=== PATIENT | male | born 1950 | race Caucasian/White ===

== ENCOUNTER 2020-12-04 14:38 | Outpatient (CLI) | payer MEDICARE, SELFPAY ==
[2020-12-04 15:32] LABS: Abs Immature Grans 0.03 10^3/uL (0.0-0.06); Absolute Basophil Count 0.04 10^3/uL (0.0-0.2); Absolute Eosinophil Count 0.64 10^3/uL (0.0-0.7); Absolute Lymphocyte Count 1.71 10^3/uL (1.2-3.4); Absolute Monocyte Count 0.56 10^3/uL (0.1-0.8); Absolute Neutrophil Count 4.78 10^3/uL (1.2-6.7); Basophils % 0.5; Eosinophils % 8.2; HCT 41.4 % (40.0-50.0); HGB 13.4 g/dL (13.5-17.5); Immature Grans % 0.4; MCH 28.2 pg (27.0-33.0); MCHC 32.4 % (32.0-36.0); MCV 87.2 fL (80-95); MPV 9.1 fL (8.0-11.0); Monocytes % 7.2; Neutrophils % 61.7; Nucleated RBC 0 %; Platelet Count 202 10^3/uL (130-400); RBC 4.75 10^6/uL (4.36-5.78); RDW-SD 41.5 fL; WBC 7.76 10^3/uL (4.4-10.8)
[2020-12-04 16:36] LABS: ALT 56 U/L (16-63); AST 35 U/L (15-37); Alkaline Phosphatase 99 U/L (46-116); Anion Gap 13.5 mmol/L (3-11); BUN 28 mg/dL (7-18); Bilirubin, Total 0.4 mg/dL (0.2-1.0); CO2 27.5 mmol/L (21.0-32.0); CREATININE 1.5 mg/dL (0.70-1.30); Calcium 9.5 mg/dL (8.5-10.1); Chloride 102 mmol/L (98-107); Estimated GFR 46.27 (mL/min/1.73m2); Glucose 86 mg/dL (74-106); Potassium 4.3 mmol/L (3.5-5.1); Sodium 143 mmol/L (136-145)
[2020-12-06 12:57] LABS: PSA, Ultrasensitive 201 ng/mL (<= 6.5)
[2020-12-07 12:39] LABS: Testosterone, Total 361 ng/dL (240-950)
== END 2020-12-04 14:39 | disposition home or self-care (01) ==
PROVIDERS: PCP Nurse Practitioner; Visit Provider Internal Medicine
DX: C61 Malignant neoplasm of prostate (principal)
CPT/HCPCS: 36415; 80053; 84153; 84403; 85025

== ENCOUNTER 2021-09-03 15:57 | Outpatient (REF) | payer MEDICARE, SELFPAY ==
[2021-09-03 16:44] LABS: Bilirubin Negative (Negative); Blood Moderate (Negative); Clarity Cloudy (Clear); Glucose 500 mg/dL (Negative); Ketones Negative (Negative); Leukocyte Esterase Large (Negative); Nitrite Positive (Negative); Specific Gravity >= 1.030 (1.005-1.025); Urobilinogen 0.2 EU/dL (Up TO 0.2)
[2021-09-03 16:50] LABS: C & S Indicated? Yes; WBC >50 HPF (0-5)
== END 2021-09-03 15:58 | disposition home or self-care (01) ==
LOC: LBN 15:57
PROVIDERS: PCP Nurse Practitioner; Visit Provider Nurse Practitioner Adult Health
DX: C61 Malignant neoplasm of prostate (principal); C77.5 Secondary and unspecified malignant neoplasm of intrapelvic lymph nodes
CPT/HCPCS: 87077; 81003; 81015; 87086; 87186

== ENCOUNTER 2022-08-12 13:17 | Outpatient (CLI) | payer MEDICARE, SELFPAY ==
[2022-08-12 12:22] LABS: Abs Immature Grans 0.04 10^3/uL (0.0-0.06); Absolute Basophil Count 0.04 10^3/uL (0.0-0.2); Absolute Eosinophil Count 0.55 10^3/uL (0.0-0.7); Absolute Lymphocyte Count 1.85 10^3/uL (1.2-3.4); Absolute Monocyte Count 0.51 10^3/uL (0.1-0.8); Absolute Neutrophil Count 4.96 10^3/uL (1.2-6.7); Basophils % 0.5; Eosinophils % 6.9; HCT 38.7 % (40.0-50.0); HGB 12.1 g/dL (13.5-17.5); Immature Grans % 0.5; Lymphocytes % 23.3; MCH 27.1 pg (27.0-33.0); MCHC 31.3 % (32.0-36.0); MCV 87 fL (80-95); MPV 8.8 fL (8.0-11.0); Monocytes % 6.4; Neutrophils % 62.4; Platelet Count 188 10^3/uL (130-400); RBC 4.46 10^6/uL (4.36-5.78); RDW 12.8 % (11.8-14.1); RDW-SD 40.5 fL; WBC 7.95 10^3/uL (4.4-10.8)
[2022-08-12 12:46] LABS: ALT 18 U/L (16-63); AST 14 U/L (15-37); Albumin 3.4 g/dL (3.4-5.0); Alkaline Phosphatase 140 U/L (46-116); Anion Gap 7.3 mmol/L (3-11); BUN 23 mg/dL (7-18); Bilirubin, Total 0.3 mg/dL (0.2-1.0); CO2 29.7 mmol/L (21.0-32.0); CREATININE 1.6 mg/dL (0.70-1.30); Calcium 9.3 mg/dL (8.5-10.1); Chloride 99 mmol/L (98-107); Glucose 221 mg/dL (74-106); Sodium 136 mmol/L (136-145); Total Protein 8.3 g/dL (6.4-8.2)
--- OUTSIDE RECORDS SUMMARY | 2022-08-12 13:28 | XMS_ITS ---
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 Problem Polyneuropathy G63 Active 98832 6008 associated with underlying disease Problem Hydronephrosis, N13.30 Active 4306 4006 unspecified hydronephrosis type Problem Long-term use of Z79.899 Active 710 007269 high-risk medication Problem Spermatocele N43.40 Active 3769353 1 Problem Mixed E78.2 Active [id number] hyperlipidemia Problem Type 2 diabetes E11.9 Active 3134 60791 mellitus without complications Problem Benign prostatic N40.1 Active 300 [id number] hyperplasia with lower urinary tract symptoms, symptom details unspecified Problem Elevated PSA R97.20 Active 7759825 05 Problem Erectile N52.9 Active 701690711 dysfunction, unspecified erectile dysfunction type ALLERGIES Substance Reaction Event Type Date Status Dogs - chocolate labs rash on hands Non Drug Allergy Jul, A ctive cats eyes water and red Non Drug Allergy Jul, Activ e walnuts Unknown Non Drug Allergy Jul, Active ENCOUNTERS Encounter Location Date Diagnosis [facility] [address] [place] [address] Aug, OFFICE [address] [place] [address] 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 [address] [place] [address] Aug, [place] [address] 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 [address] [facility] Jul, [place] [address] 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 [address] [facility] Jul, Hydronephro sis, unspecified [place], [place] hydronephrosis t ype N13.30 [address] 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 [address] [facility] Jul, Hydronephro sis, unspecified [place] hydronephrosis t ype N13.30 [address]3247 ; Benign prostat ic hyperplasia with lower urinary tract sy mptoms, symptom details unspecified N40.1 ; Spermato shelby N43.40 ; Erectile dysfu nction, unspecified erec tile dysfunction type N52.9 and Elevated PSA R97 .20 [facility] [address] [facility] Jul, Left renal stone N20.0 [place] [address] [facility] [address] [facility] Jul, Typ e 2 diabetes mellitus [place], [place] without complica tions E11.9 [address] [facility] 8 [facility] May, Benign ess ential OFFICE [address] hypertension I10 ; Mixed [place] hyperlipidemia E 78.2 ; CAD [address]384 (coronary artery disease) I25.10 ; Type 2 diabetes mellitus without complications E1 1.9 ; Polyneuropathy a ssociated with underlying disease G63 ; BPH (benign pr ostatic hyperplasia) N40 .0 ; Long-term use of high-risk medication Z79.8 99 and computer terminal operator (current) u se of insulin Z79.4 [facility] 8 [facility] May, OFFICE [address] [place] [address] [facility] 8 [facility] May, Benign ess entiwi OFFICE [address] hypertension I10 [place] [address] [facility] May, Mixed hyperlipidemia E78.2 [place] [address] and Type 2 di abetes mellitus without complications E1 1.9 [facility] 8 [facility] May, OFFICE [address] [place] [address] [facility] Mar, [place] [address] [employer]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 [address] [facility] Mar, [place] [address] [facility] [address] [facility] Feb, [place] [address] [facility] 8 [facility] Feb, Myocardial ischemia I25.9 [address] [place] [address] [facility] 8 [facility] Feb, CAD (coron mya artery OFFICE [address] disease) I25.10 [place] [address] [facility]ARD[facility] [address] [facility] Feb, [place] [address] [facility]ARD[facility]OLOG[facility] [address] [facility] Feb, [place] [address] [facility] 8 [facility] Feb, BPH (benig n prostatic OFFICE [address] hyperplasia) N40 .0 [place] [address] [facility] 8 [facility] Feb, Medicare a nnual wellness OFFICE [address] visit, subsequen t Z00.00 ; [place] Chest pain on ex ertion [address] R07.9 ; Benign e ssential hypertension I10 ; Mixed hyperlipidemia E 78.2 ; CAD (coronary artery disease) I25.10 ; Type 2 diabetes mellitus without complications E1 1.9 ; Polyneuropathy a ssociated with underlying disease G63 ; BPH (benign pr ostatic hyperplasia) N40 .0 ; Long-term use of high-risk medication Z79.8 99 ; prison (current) u se of insulin Z79.4 ; Encounter for screening fo r malignant neoplasm of test is Z12.71 ; Colon cancer scr eening Z12.11 ; Screeni ng for prostate cancer Z12.5 ; Need for hepatit is C screening test Z 11.59 ; Risk for falls Z 91.81 ; Screening for bl adder cancer Z12.6 ; S creening for depression Z 13.89 ; Encounter for dr sandhu screening Z02.83 and Alcohol screenin g Z13.89 [address]OD[address] Oct, Comprehensive di abetic foot [place] examination, typ e 2 DM, [address] encounter for E1 1.9 ; Achilles tendini tis of left lower extremity M76.62 and Achilles tendini tis, right leg M76.61 [facility] [address] [place] [address] Aug, Intermitte nt claudication [address]ICE [address] I73.9 ; Benign e ssential [place] hypertension I10 ; Mixed [address] hyperlipidemia E 78.2 ; Type 2 diabetes melli tus without complications E1 1.9 ; Polyneuropathy a ssociated with underlying disease G63 ; CAD (coronary artery disease) I25.10 ; BPH (benign prostati c hyperplasia) N40 .0 ; Long-term use of high-risk medication Z79.8 99 and prison (current) u se of insulin Z79.4 [facility] MELLISA [facility] Jul, 2019 Achilles tendini tis, right [place] leg M76.61 and A chilles [address] tendinitis of le ft lower extremity M76.62 [facility] [address] [facility] Jul, [place] [address] [facility] 8 [facility] Jul, Benign ess ential OFFICE [address] hypertension I10 ; Mixed [place] hyperlipidemia E 78.2 and [address] Diabetes type 2, controlled E11.9 [facility] 8 [facility] May, Achilles tendini tis, right [place] leg M76.61 ; Ach illes [address] tendinitis of le ft lower extremity M76.62 ; Comprehensive di abetic foot examination, typ e 2 DM, encounter for E1 1.9 and Nocturnal leg cr amps G47.62 [address]OD-[address] Feb, Comprehensive di abetic foot [place] examination, typ e 2 DM, [address] encounter for E1 1.9 [facility] 8 [facility] Feb, Medicare a nnual wellness OFFICE [address] visit, subsequen t Z00.00 ; [place] Benign essential [address] hypertension I10 ; Mixed hyperlipidemia E 78.2 ; Diabetes type 2, controlled E11.9 ; CAD (cor onary artery disease) I25.10 ; BPH (benign pros tatic hyperplasia) N40 .0 ; Long-term use of high-risk medication Z79.8 99 ; computer terminal operator (current) u se of insulin Z79.4 ; Encounter for drug screeni ng Z02.83 ; Colon cancer scr eening Z12.11 ; Alcohol screening Z13.89 ; Risk fo r falls Z91.81 and Encou nter for screening for ma lignant neoplasm of test is Z12.71 [facility] [address] [facility] Nov, Magy betes type 2, controlled [place], [place] E11.9 [address] [facility] [address] [facility] [address] Aug, [place] [address] [facility]ARD[facility]OLOG[facility] [address] [facility] Aug, [place] [address] [facility] Aug, [place] [address] [facility] Aug, [place] [address] [facility]ARD[facility] [address] [facility] Aug, [place] [address] [facility] 8 [facility] Aug, Atypical c hest pain R07.89 [address]ICE [address] ; Pain, joint, m ultiple [place] sites M25.50 ; B enign [address] essential hypert ension I10 ; Mixed hyperlip idemia E78.2 ; Diabetes type 2, controlled E11.9 ; CAD (coronary artery disease) I25.10 ; BPH (be nign prostatic hyperp lasia) N40.0 ; Long-ter m use of high-risk medica tion Z79.899 and prison (current) use of insulin Z79.4 [facility] [address] [place] [address] Jul, OFFICE [address] [place] [address] [facility] [address] [place] [address] Mar, Magy lui type 2, controlled [place] E11.9 [address] [facility] 8 [facility] Jan, Medicare a nnual wellness OFFICE [address] visit, subsequen t Z00.00 ; [place] Benign essential [address] hypertension I10 ; Mixed hyperlipidemia E 78.2 ; Diabetes type 2, controlled E11.9 ; CAD (cor onary artery disease) I25.10 ; BPH (benign pros tatic hyperplasia) N40 .0 ; Long-term use of high-risk medication Z79.8 99 ; Encounter for dr sandhu screening Z02.83 ; Screening for bl adder cancer Z12.6 ; E ncounter for screening fo r malignant neoplasm of test is Z12.71 ; Alcohol screenin g Z13.89 ; Colon cancer scr eening Z12.11 ; Screeni ng for prostate cancer Z12.5 ; SCREENING FOR AA A (ABDOMINAL AORTI C ANEURYSM) Z13.6 ; Risk for falls Z91.81 and computer 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 operator (current) use of insulin Z79.4 [facility] 8 [facility] Oct, Benign ess ential OFFICE [address] hypertension I10 ; Mixed [place] hyperlipidemia E 78.2 ; [address] Diabetes type 2, controlled E11.9 ; CAD (cor onary artery disease) I25.10 ; BPH (benign pros tatic hyperplasia) N40 .0 and Long-term use of high-risk medication Z79.8 99 [facility] [address] [facility] Aug, Magy lui type 2, controlled [place], [place] E11.9 [address] [facility] 8 [facility] Aug, OFFICE [address] [place] [address] [facility] 8 [facility] Aug, OFFICE [address] [place] [address] [facility] 8 [facility] Aug, OFFICE [address] [place] [address] Jul, Benign esse [place], [place] hypertension I10 ; Mixed [address] hyperlipidemia E 78.2 ; Diabetes type 2, controlled E11.9 ; CAD (cor onary artery disease) I25.10 ; BPH (benign pros tatic hyperplasia) N40 .0 and Long-term use of high-risk medication Z79.8 99 [facility] 8 [facility] Jul, Benign ess ential OFFICE [address] hypertension I10 ; Mixed [place] hyperlipidemia E 78.2 ; 17910 Diabetes type 2, controlled E11.9 ; CAD (cor onary artery disease) I25.10 ; BPH (benign pros tatic hyperplasia) N40 .0 and Long-term use of high-risk medication Z79.[address] Mar, Benign esse [place], [place] hypertension I10 ; Mixed [address] hyperlipidemia E 78.2 ; Diabetes type 2, controlled E11.9 ; CAD (cor onary artery disease) I25.10 ; BPH (benign pros tatic hyperplasia) N40 .0 ; Long-term use of high-risk medication Z79.8 99 and Right flank pain R10.9 [facility] 8 [facility] Mar, Right flan k pain R10.9 ; OFFICE [address] Benign essential [place] hypertension I10 ; Mixed [address] hyperlipidemia E 78.2 ; Diabetes type 2, controlled E11.9 ; CAD (cor onary artery disease) I25.10 ; BPH (benign pros tatic hyperplasia) N40 .0 and Long-term use of high-risk medication Z79.8 99 [facility] 8 [facility] Feb, OFFICE [address] [place] [address] [facility] 8 [facility] Jan, Benign ess ential OFFICE [address] hypertension [place]10 [place] [address] [facility] 8 [facility] December, OFFICE [address] [place] [address] [facility] 8 [facility] December, Diabetes type 2, controlled [place] E11.[address] December, [place] [address] [facility] 8 [facility] December, Benign ess ential OFFICE [address] hypertension I10 ; Type II [place] or unspecified t ype 15606 diabetes mellitu s without mention of compl ication, not stated as un controlled E11.9 ; Mixed hyperlipidemia E 78.2 ; CAD (coronary artery disease) I25.10 ; BPH (be nign prostatic hyperp lasia) N40.0 ; Long-ter m use of high-risk medica tion Z79.899 ; Alcoho l screening Z13.89 ; Screeni ng for bladder cancer Z 12.6 ; Encounter for sc reening for malignant neopla sm of testis Z12.71 ; Colon cancer screening Z12.11 ; SCREENING FOR AA A (ABDOMINAL AORTI C ANEURYSM) Z13.6 ; Risk for falls Z91.81 ; Pneumoc occal vaccination admi nistered at current visit Z2 [address] sandhu screening Z02.83 [facility] [address] [place] [address] Oct, [place] [address] [place] [address] [facility] 8 [facility] Oct, OFFICE [address] [place], [place] [address] [place] [address] [facility] 8 [facility] Oct, Pre-op aspen luation Z01.818 ; OFFICE [address] Rotator cuff tea r [place] arthropathy of r ight 297[address] shoulder M12.811 ; Benign essential hypert ension I10 ; Mixed hyperlip idemia E78.2 ; Type II or unspecified type diabetes mellitus without mention of complication, no t stated as uncontrolled E11 .9 ; CAD (coronary artery disease) I25.10 ; BPH (be nign prostatic hyperp lasia) N40.0 and Long-t erm use of high-risk medica tion Z79.899 [facility] [address] [place] [address] Aug, Acute pain of right OFFICE [address] shoulder M25.511 [place] [address] Aug, Benign esse ntial [place] hypertension I10 ; [place] [address] or unspecified t ype diabetes mellitu s without mention of compl ication, not stated as un controlled E11.9 ; Mixed hyperlipidemia E 78.2 ; CAD (coronary artery disease) I25.10 ; BPH (be nign prostatic hyperp lasia) N40.0 and Long-t erm use of high-risk medica tion Z79.899 [facility] 8 [facility] Aug, Acute pain of right [address]ICE [address] shoulder M25.511 ; [place], [place] essential hypert ension I10 [address] ; Type II or uns pecified type diabetes me llitus without mention of complication, no t stated as uncontrolled E11 .9 ; Mixed hyperlipidemia E 78.2 ; CAD (coronary artery disease) I25.10 ; BPH (be nign prostatic hyperp lasia) N40.0 and Long-t erm use of high-risk medica tion Z79.[address] Jul, [place] [address] [facility] 8 [facility] Jul, [address]ICE [address] [place] [address] May, [facility] [place] hypertension I10 ; Right 35366 shoulder pain M2 5.511 ; Type II or unspe cified type diabetes mellitu s without mention of compl ication, not stated as un controlled E11.9 ; Mixed hyperlipidemia E 78.2 ; CAD (coronary artery disease) I25.10 ; BPH (be nign prostatic hyperp lasia) N40.0 and Long-t erm use of high-risk medica tion Z79.899 [facility] [address] [place] [address] May, Right shou lder pain M25.511 OFFICE [address] ; [facility] [place] hypertension I10 ; [place] [address] or unspecified t ype diabetes mellitu s without mention of compl ication, not stated as un controlled E11.9 ; Mixed hyperlipidemia E 78.2 ; CAD (coronary artery disease) I25.10 ; BPH (be nign prostatic hyperp lasia) N40.0 and Long-t erm use of high-risk medica tion Z79.899 [facility] 8 [facility] Mar, [place] [address] [address] Feb, [place] [address] [facility] 8 [facility] Jan, OFFICE [address] [place] [address] Nov, Long-term u se of high-risk [place] medication Z79.8 99 ; Type 28080 II or unspecifie d type diabetes mellitu s without mention of compl ication, not stated as un controlled E11.9 ; Mixed hyperlipidemia E 78.2 ; CAD (coronary artery disease) I25.10 and BPH ( benign prostatic hyperp lasia) N40.0 [facility] 8 [facility] Nov, Left shoul negin pain M25.512 [address] ; Type II or uns pecified [place] type diabetes me llitus 59[address] without mention of complication, no t stated as uncontrolled E11 .9 ; Mixed hyperlipidemia E 78.2 ; CAD (coronary artery disease) I25.10 ; BPH (be nign prostatic hyperp lasia) N40.0 and Long-t erm use of high-risk medica tion Z79.[address] Aug, [place] [address] [facility] 8 [facility] Aug, [address]ICE [address] [place] [address] Aug, Type II or unspecified type [place] [address] mention of compl ication, not stated as un controlled E11.9 ; Right sh oulder pain M25.511 ; Mixed hyperlipidemia E 78.2 ; CAD (coronary artery disease) I25.10 ; BPH (be nign prostatic hyperp lasia) N40.0 and Long-t erm use of high-risk medica tion Z79.899 [facility] [address] [place] [address] Aug, Right shou lder pain M25.511 [address] ; Type II or uns pecified [place] type diabetes me llitus [address]79[address] without mention of complication, no t stated as uncontrolled E11 .9 ; Mixed hyperlipidemia E 78.2 ; CAD (coronary artery disease) I25.10 ; BPH (be nign prostatic hyperp lasia) N40.0 and Long-t erm use of high-risk medica tion Z79.899 [facility] 8 [facility] Jul, OFFICE [address] [place] [address] [facility] [address] [place] [address] May, DM II [Diabetes mellitus [place] type II] 250.00 52797 [facility] 8 [facility] May, OFFICE [address] [place] [address] [address] Feb, Diabetes type 2, controlled [place] 250.00 and Leg c ramps [address] Feb, LONG-TERM U SE MEDS NEC [place] V58.69 ; Right s houlder [address] pain 719.41 ; DM II [Diabetes mellit type II] 250.00 ; Hyperli pidemia 272.4 ; CAD 414. 00 ; BPH (benign prostati c hypertrophy) 600 .00 ; SCREEN MAL NEOP- BLADDER V76.3 ; SCREEN M ALIG NEOP-TESTIS V76. 45 ; Screening for hu man immunodeficiency virus without presence of risk factors V73.89 ; SCREEN MALIG NEOP-COLON V76.51 ; SCR-for hepatiti s C screening V73.89 and SCRN MALIG NEOP-PROST ATE V76.44 [facility] [address] [place] [address] Feb, Right shou lder pain 719.41 [address]ICE [address] ; DM II [Diabete s mellitus [place] type II] 250.00 ; Visual 33034 disturbance 368. 9 ; Hyperlipidemia 2 72.4 ; CAD 414.00 ; BPH (be nign prostatic hypert rophy) 600.00 ; LONG-TE RM USE MEDS NEC V58.69 ; Scr eening for human immunodefi ciency virus without pr esence of risk factors V73 .89 ; SCR-for hepatiti s C screening V73.89 ; SCRN MALIG NEOP-PROST ATE V76.44 ; ND VAC STRPTCS PNEUMNI B V03.82 ; SCREEN MAL NEOP-BLADDER V76 .3 ; SCREEN MALIG NEOP-COLON V76.51 and SCREEN MALIG SG P-TESTIS V76.45 [facility] [address] [place] [address] Jan, [address]ICE [address] [place] [address] [facility] [address] [place] [address] Oct, Environmen nandini allergies [address]ICE [address] V15.09 [place] [address] Aug, Need for he patitis C [place] screening test V 73.89 ; [place] [address] II [Diabetes lindsay litus type II] 250.00 ; Hyp erlipidemia 272.4 ; CAD 414. 00 ; Allergy 995.3 ; Hearing loss 389.9 and L PANFILO-TERM USE MEDS NEC V58 .69 [facility] [address] [place] [address] Aug, DM II [Magy betes mellitus [address]ICE [address] type II] 250.00 ; VACCIN [place] FOR INFLUENZA V0 4.81 ; [address]42[address] Hyperlipidemia 2 72.4 ; CAD 414.00 ; Allergy 995.3 ; Hearing loss 389 .9 ; LONG-TERM USE ME DS NEC V58.69 and Need for hepatitis C scre ening test V73.89 [facility] [address] [place] [address] Feb, DM II [Diab etes mellitus [place] type II] 250.00 ; [address] Hyperlipidemia 2 72.4 ; CAD 414.00 and LONG- TERM USE MEDS NEC V58.69 [facility] [address] [place] [address] Feb, DM II [Magy betes mellitus [address]ICE [address] type II] 250.00 ; [place] Hyperlipidemia 2 72.4 ; CAD 51295 414.00 and LONG- TERM USE MEDS NEC V58.69 [facility] [address] [place] [address] Jan, [address]ICE [address] [place] [address] [facility] [address] [place] [address] Oct, [address]ICE [address] [place] [address] zzLPO-PRIM and PSYCH [address] [facility] Oct, [place] [address] [place] [address] [place], [place] [address] [place] [address] Oct, [place] [address] Oct, [place] [address] Aug, SCRN MALIG NEOP-PROSTATE [place] V76.44 ; PHYSICA L- ADULT 72066 V70.0 ; Atypical chest pain 786.59 ; DM II [ Diabetes mellitus type II ] 250.00 ; Hyperlipidemia 2 72.4 ; CAD 414.00 ; LONG-TE RM USE MEDS NEC V58.69 ; SCR EEN MAL NEOP-BLADDER V76 .3 ; SCREEN MALIG NEOP-TESTI S V76.45 and SCREEN MALIG NEOP-COLON V76.51 [facility] [address] [place] [address] Aug, PHYSICAL- ADULT V70.0 ; OFFICE [address] Atypical chest p ain 786.59 [place] ; DM II [Diabete s mellitus 56179 type II] 250.00 ; Hyperlipidemia 2 72.4 ; CAD 414.00 ; LONG-TE RM USE MEDS NEC V58.69 ; SCR EEN MAL NEOP-BLADDER V76 .3 ; SCREEN MALIG NEOP-TESTI S V76.45 ; SCREEN MALIG SG P-COLON V76.51 and SCRN MALIG NEOP-PROSTATE V7 6.44 [facility] [address] [facility] Jul, [place] [address] ADMINISTRATION [facility] Jul, [place] [address] [facility] [address] [place] [address] Jul, [place] [address] [facility] [address] [place] [address] Jul, Atypical c hest pain 786.59 [address] ; Right shoulder pain [place], [place] 719.41 and Right hip pain [address]9870 719.45 -[facility] [address] May, LONG-TERM U SE MEDS NEC [place] V58.69 ; Hyperli pidemia 62058 272.4 ; CAD 414. 00 and DM II [Diabetes lindsay litus type II] 250.00 [facility] [address] [place] [address] May, CAD 414.00 ; Hyperlipidemia [address]ICE [address] 272.4 ; DM II [India nogueira [place] mellitus type II ] 250.00 [address]4869 and LONG-TERM US E MEDS NEC V58.[address] Mar, [place] [address] [facility] [address] [place] [address] Feb, [place] [address] December, Hyperlipide mahsa 272.4 ; CAD [place], [place] 414.00 ; DM II [ Diabetes 12085 mellitus type II ] 250.00 and LONG-TERM US E MEDS NEC V58.69 [facility] [address] [place] [address] December, CAD 414.00 ; DM II [address]ICE [address] [Diabetes mellit us type II] [place], [place] 250.00 ; Hyperli pidemia 03217 272.4 and LONG-T ERM USE MEDS NEC V58.69 [facility] [address] [place] [address] December, [address]ICE [address] [place] [address] UNKNOWN Aug, [facility] [address] [place] [address] Jul, [address]ICE [address] [place] [address] [facility] [address] [place] [address] Jul, CAD 414.00 ; DM II [address]ICE [address] [Diabetes mellit us type II] [place], [place] 250.00 ; Hyperli pidemia 56351 272.4 and LONG-T ERM USE MEDS NEC V58.69 [facility] [address] [facility] Jul, DM II [Diab etes mellitus [place] type II] 250.00 ; CAD 68789 414.00 ; Hyperli pidemia 272.4 and LONG-T ERM USE MEDS NEC V58.69 [facility] 8 [facility] Feb, Injury of ankle 959.7 [address] [place] [address] [place] [address] [address] [facility] Feb, [place] [address] ORTHOPEDIC OFFICE [address] [facility] Feb, Arthralgia o f shoulder [place], [place] region, left 719 .41 [address] [facility] [address] [facility] Jan, [place] [address] [facility] Jan, DEG ENERATIVE JOINT DISEASE [place], [place] 715.96 [address] [facility] [address] [facility] Jan, Shoulder pain, left 719.41 [place] [address] xxRADIOLOGY [address] [facility] Jan, [place] [address] [facility] [address] [facility] Jan, Evonne ulder pain, left 719.41 [place] [address] CASE MANAGEMENT [address] [facility] Jan, [place] [address] [facility] [address] [place] [address] Jan, Trapezius muscle strain OFFICE [address] 840[address] [place] [address] December, Hyperlipide mahsa 272.4 ; [place], [place] Trapezius muscle strain 49191 840.8 ; DM II [D iabetes mellitus type II ] 250.00 ; CAD 414.00 and L PANFILO-TERM USE MEDS NEC V58 .69 [facility] [address] [place] [address] December, Trapezius muscle strain OFFICE [address] 840.8 ; DM II [D iabetes [place] mellitus type II ] 250.00 ; 51092 Hyperlipidemia 2 72.4 ; CAD 414.00 ; LONG-TE RM USE MEDS NEC V58.69 and N on compliance with medical treatment V15.81 [facility] 8 [facility] Aug, OFFICE [address] [place] [address] [facility] [address] [place] [address] Aug, OFFICE [address] [place] [address] [facility] 8 [facility] Jul, OFFICE [address] [place] [address] [facility] 8 [facility] Jul, OFFICE [address] [place] [address] Jul, LONG-TERM U SE MEDS NEC [place] V58.69 ; DM II [ Diabetes 45370 mellitus type II ] 250.00 ; CAD 414.00 ; Hyp erlipidemia 272.4 and Latera l epicondylitis 72 6.32 [facility] 8 [facility] Jul, DM II [Magy betes mellitus OFFICE [address] type II] 250.00 ; CAD [place], [place] 414.00 ; Hyperli pidemia 92151 272.4 ; Lateral epicondylitis 72 6.32 and LONG-TERM USE ME DS NEC V58.69 [facility] 8 [facility] Nov, DM II [Magy betes mellitus OFFICE [address] type II] 250.00 ; [place] Hyperlipidemia 2 72.4 ; 24346 LONG-TERM USE ME DS NEC V58.69 and CAD 4 14.00 -[address] Nov, DM II [Diab etes mellitus [place] type II] 250.00 ; 77781 Hyperlipidemia 2 72.4 ; LONG-TERM USE ME DS NEC V58.69 and CAD 4 14.00 [facility] [address] [place] [address] Nov, OFFICE [address] [place] [address] [facility] [address] [place] [address] Oct, [place] [address] [facility] [address] [place] [address] Aug, [place] [address] [facility] [address] [place] [address] Aug, [place] [address] Jul, [place] [address] Jul, LONG-TERM U SE MEDS NEC [place] V58.69 ; DM II [ Diabetes 05865 mellitus type II ] 250.00 ; CAD 414.00 ; Hyp erlipidemia 272.4 and Tinea pedis 110.4 [facility] [address] [place] [address] Jul, DM II [Magy betes mellitus OFFICE [address] type II] 250.00 ; CAD [place], [place] 414.00 ; Hyperli pidemia 08295 272.4 ; Tinea pe dis 110.4 and LONG-TERM US E MEDS NEC V58.69 [facility] [address] [place] [address] Jul, [place] [address] [facility] 8 [facility] Jul, DM II [Magy betes mellitus OFFICE [address] type II] 250.00 ; CAD [place], [place] 414.00 ; Hyperli pidemia 14246 272.4 and LONG-T ERM USE MEDS NEC V58.69 [facility] 8 [facility] Jul, OFFICE [address] [place] [address] [facility] [address] [place] [address] May, [place] [address] [facility] [address] [place] [address] May, [place] [address] [facility]IL[facility]ATION [address] [facility] May, [place] [address] xxCARDIOLOGY [address] [facility] May, [place] [address] [facility] 8 [facility] May, CAD 414.00 and DM II OFFICE [address] [Diabetes mellit type II] [place], [place] 250.00 [address] [facility] 8 [facility] May, OFFICE [address] [place] [address] [facility] 8 [facility] May, OFFICE [address] [place] [address] [facility] 8 [facility] May, [address]ICE [address] [place] [address] [facility] 8 [facility] Mar, DM II [Magy betes mellitus OFFICE [address] type II] 250.00 and HEME + [place], [place] STOOL 792.[id number] [place] [address] [place] [address] Mar, [address]ICE [address] [place] [address] Jan, DM II [Diab etes mellitus [place] type II] 250.00 ; First 66810 degree atriovent ricular block 426.11 ; M YALGIA AND MYOSITIS NOS 729 .1 ; BPH LOC W/O UR OBS/L UTS 600.20 ; SCREEN MALIG N EOP-TESTIS V76.45 ; SCREEN MALIG NEOP-COLON V76.5 1 ; SCRN MALIG NEOP-PROST ATE V76.44 ; HEME + STOOL 7 92.1 ; SCREEN MAL NEOP- BLADDER V76.3 and EKG IN TERP, pre op V72.81 [facility] [address] [place] [address] Jan, DM II [Magy betes mellitus OFFICE [address] type II] 250.00 ; [place], [place] degree atriovent ricular 27213 block 426.11 ; M YALGIA AND MYOSITIS NOS 729 .1 ; BPH LOC W/O UR OBS/L UTS 600.20 ; SCREEN MALIG N EOP-TESTIS V76.45 ; SCREEN MALIG NEOP-COLON V76.5 1 ; SCRN MALIG NEOP-PROST ATE V76.44 ; HEME + STOOL 7 92.1 ; SCREEN MAL NEOP- BLADDER V76.3 and EKG IN TERP, pre op V72.81 [facility] [address] [facility] Nov, [address] [facility] Nov, DM II [Diab etes mellitus [place] type II] 250.00 [address] [facility] 8 [facility] Nov, DM II [Magy betes mellitus OFFICE [address] type II] 250.00 [place] [address] [facility] [address] [facility] Nov, [place] [address] [facility] 8 [facility] Oct, OFFICE [address] [place] [address] [facility] [address] [facility] 19 Jul, 2009 [place] [address] L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 [address] [facility] 18 Jul, 2009 [place] [id number] [place] [address] [address] [facility] 14 Jul, 2009 [place], [place] [id number] [place] [address] [facility]IC[facility]ANS 8 [facility] May, OFFICE [address] [place], [place] [id number] [place] [address] [facility] 8 [facility] May, OFFICE [address] [place], [place] [id number] [place] [address] [facility] 8 [facility] May, OFFICE [address] [place] [id number] [place] [address] Mar, DIABETES-TY PE II 250.00 [place], [place] [id number] [place] [address] [facility] 8 [facility] Mar, DIABETES-T YPE II 250.00 ; OFFICE [address] First degree [place] atrioventricular block 37754 426.11 ; MYALGIA AND MYOSITIS NOS 729 .1 and EKG INTERP, pre op V 72.81 [facility] 8 [facility] Mar, OFFICE [address] [place] [address] [facility] 8 [facility] Mar, OFFICE [address] [place], [place] [id number] [place] [address] [facility]ANS 8 [facility] Feb, OFFICE [address] [place] [address] [facility] 8 [facility] Jan, Hyperglyce mahsa 790.29 and OFFICE [address] DMII WO CMP UNCN TRLD 250.02 [place] [address] [facility] 8 [facility] Jan, OFFICE [address] [place] [address] [facility] 8 [facility] Jan, OFFICE [address] [place] [address] xxRADIOLOGY [address] [facility] Jan, [place] [address] [facility] 8 [facility] Jan, OFFICE [address] [place] [address] [facility] [address] [place] [address] December, [address] [facility] 8 [facility] December, OFFICE [address] [place], [place] [id number] [place] [address] PHYSICIAN OFFICE [address] [place] [address] December, DM II [[place] [address] type II] 250. 00 xxRADIOLOGY [address] [facility] December, [address] [facility]YS[facility] OFFICE [address] [place] [place] [address] December, Hyper glycemia 790.[address] December, Hyperglycem ia 790.[address] [facility] [address] [place] [address] December, OFFICE [address] [place], [place] [id number] [place] [address] [facility] 8 [facility] December, Hyperglyce mahsa 790.29 ; DMII OFFICE [address] WO CMP UNCNTRLD 250.02 and [place] COUNSELING NOS V 65.40 [address] [facility] [address] [place] [address] December, [address] December, Shortness o f breath 786.05 [place] ; CATARACT NEC 3 66.8 ; BPH 48788 LOC W/O UR OBS/L UTS 600.20 ; HEME + STOOL 7 92.1 and MYALGIA AND MYOS ITIS NOS 729.1 [facility] [address] [place] [address] December, CATARACT N EC 366.8 ; OFFICE [address] PHYSICAL- ADULT V70.0 ; BPH [place] LOC W/O UR OBS/L UTS 600.20 49878 ; SCREEN MALIG N EOP-COLON V76.51 ; HEME + STOOL 792.1 ; SCRN MAL SG B REAST NOS V76.10 ; Shortne ss of breath 786.05 ; SCREEN MALIG NEOP-TESTI S V76.45 ; MYALGIA AND MYOS ITIS NOS 729.1 ; SCRN MAL IG NEOP-PROSTATE V7 6.44 ; EKG INTERP, pre op V 72.81 ; First degree atrioventricular block 426.11 ; ABNORM ELECTROCARDIOGRA M 794.31 and DMII WO CMP UNCNTRLD 250.02 L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 [address] [facility] Nov, Abdominal p ain,NOS 789.00 [place] and Balanitis 60 7.1 [id number] xxRADIOLOGY [address] [facility] Mar, [place] [address] [facility] [address] [facility] Mar, DYS PHAGIA 787.2 [place] [address] IMMUNIZATIONS Vaccine Route Administration Date Status Pneumococcal ADULT NONSTATE PCV13 IM Intramuscular March 06, 2020 Administered [id number] Pneumococcal ADULT NONSTATE PCV13 IM Intramuscular March 06, 2015 Administered [id number] -Influenza FLUZONE NONSTATE 3+yrs IM Intramuscular Sep 06, 2014 Administered preser free triamcinalone (kenalog) per 40 mg Unknown May 15, 2016 Administered Influenza HISTORY Unknown Jun 26, 2020 Administered Pneumococcal ADULT NONSTATE PPSV23 IM Intramuscular January 13, 2017 Administered [id number] SOCIAL HISTORY Qualifiers Date Never Smoker REASON FOR REFERRAL FUNCTIONAL STATUS PLAN OF CARE Activity Details Future Test CT Abd/Pelvis w/ (21818) 202 09470 Future Test US Scrotum [id number] Future Test Cardio:Mara Cutleran CP [id number] Future Test Cardio:Echo,TTE,transTHORACI C (CPT-[id number]) [id number] Future Test PREV: DIABETIC FOOT EXAM 19 Future Test CTA Aorta-Iliofemoral runoff (60932) [id number] Future Test Cardio:Mara Cutleran CP [id number] Future Test Cardio:Echo,TTE,transTHORACI C (CPT-[id number]) [id number] Future Test CT Abd/Pelvis w/o (16108) 20 416049 Future Test US Abdomen Limited (36608) 2 [id number] Future Test MR Joint Upper Ext R w/o (39 221) [id number] Future Test X Shoulder R [id number] Future Test Cardio:Shorty Cutleriscan CP [id number] Future Test X Shoulder R [id number] Future Test X Hip R 2V [id number] VITAL SIGNS Height 62 in 2020-07-18 Height 62 in 2020-06-26 Height 62 in 2020-03-06 Height 62 in 2019-10-19 Height 62 in 2019-09-13 Height 62 in 2019-07-13 Height 62 in 2019-05-25 Height 62 in 2019-03-23 Height 62 in 2019-03-15 Height 62 in 2018-09-14 Height 62 in 2018-02-23 Height 62 in 2017-11-24 Height 62 in 2017-07-22 Height 62 in 2017-04-14 Height 62 in 2017-01-16 Height 62 in 2017-01-13 Height 62 in 2016-10-03 Height 62 in 2016-09-15 Height 62 in 2016-05-15 Height 62 in 2015-12-04 Height 62 in 2015-09-06 Height 62 in 2015-03-27 Height 62 in 2015-03-06 Height 62 in 2014-10-16 Height 62 in 2014-09-06 Height 62 in 2014-03-30 Height 62 in 2013-09-08 Height N/A in 2013-08-22 Height 62 in 2013-06-21 Height N/A in 2013-01-18 Height N/A in 2012-08-06 Height N/A in 2012-03-25 Height N/A in 2012-03-01 Height N/A in 2012-02-02 Height N/A in 2012-01-27 Height N/A in 2011-07-04 Height 62 in 2010-12-13 Height 62 in 2010-07-02 Height 62 in 2010-04-22 Height 62 in 2010-01-30 Height 62 in 2009-12-21 Height 62 in 2009-04-25 Height 62 in 2009-01-16 Weight 142 lbs 2020-07-18 Weight 149.8 lbs 2020-06-26 Weight 144 lbs 2020-03-06 Weight 148 lb 8 oz lbs 2019-10-19 Weight 149.9 lbs 2019-09-13 Weight 153 lbs 2019-07-13 Weight 147.6 lbs 2019-05-25 Weight 148.2 lbs 2019-03-23 Weight 147.2 lbs 2019-03-15 Weight 152 lbs 2018-09-14 Weight 148.4 lbs 2018-02-23 Weight 149.2 lbs 2017-11-24 Weight 152.6 lbs 2017-07-22 Weight 153.6 lbs 2017-04-14 Weight 156 lbs 2017-01-16 Weight 156 lbs 2017-01-13 Weight 157.2 lbs 2016-10-03 Weight 156.4 lbs 2016-09-15 Weight 155.0 lbs 2016-05-15 Weight 157.4 lbs 2015-12-04 Weight 159.8 lbs 2015-09-06 Weight 151.6 lbs 2015-03-27 Weight 153.8 lbs 2015-03-06 Weight 158.2 lbs 2014-10-16 Weight 154.2 lbs 2014-09-06 Weight 154.2 lbs 2014-03-30 Weight 156.4 lbs 2013-09-08 Weight 154 lbs 2013-08-22 Weight 153.2 lbs 2013-06-21 Weight 153.8 lbs 2013-01-18 Weight 155.6 lbs 2012-08-06 Weight 150.5 lbs 2012-03-25 Weight 152.6 lbs 2012-03-01 Weight 155.6 lbs 2012-02-02 Weight 154.6 lbs 2012-01-27 Weight 154.8 lbs 2011-07-04 Weight 155.25 lbs 2010-12-13 Weight 150.5 lbs 2010-08-15 Weight 151 lbs 2010-07-02 Weight 153.6 lbs 2010-06-07 Weight 155.2 lbs 2010-04-22 Weight 158 lbs 2010-01-30 Weight 154.6 lbs 2009-12-21 Weight 151.8 lbs 2009-04-25 Weight 153.8 lbs 2009-02-22 Weight 155 lbs 2009-01-25 Weight 150 lbs 2009-01-16 Weight 152 lbs 2008-12-11 Weight N/A lbs 2006-04-01 BMI 25.97 kg/m2 2020-07-18 BMI 27.40 kg/m2 2020-06-26 BMI 26.34 kg/m2 2020-03-06 BMI 27.16 kg/m2 2019-10-19 BMI 27.41 kg/m2 2019-09-13 BMI 27.98 kg/m2 2019-07-13 BMI 26.99 kg/m2 2019-05-25 BMI 27.10 kg/m2 2019-03-23 BMI 26.92 kg/m2 2019-03-15 BMI 27.80 kg/m2 2018-09-14 BMI 27.14 kg/m2 2018-02-23 BMI 27.29 kg/m2 2017-11-24 BMI 27.91 kg/m2 2017-07-22 BMI 28.09 kg/m2 2017-04-14 BMI 28.53 kg/m2 2017-01-16 BMI 28.53 kg/m2 2017-01-13 BMI 28.75 kg/m2 2016-10-03 BMI 28.60 kg/m2 2016-09-15 BMI 28.35 kg/m2 2016-05-15 BMI 28.79 kg/m2 2015-12-04 BMI 29.22 kg/m2 2015-09-06 BMI 27.72 kg/m2 2015-03-27 BMI 28.13 kg/m2 2015-03-06 BMI 28.93 kg/m2 2014-10-16 BMI 28.20 kg/m2 2014-09-06 BMI 28.20 kg/m2 2014-03-30 BMI 28.60 kg/m2 2013-09-08 BMI 28.16 kg/m2 2013-08-22 BMI 28.02 kg/m2 2013-06-21 BMI 28.13 kg/m2 2013-01-18 BMI 28.46 kg/m2 2012-08-06 BMI 27.52 kg/m2 2012-03-25 BMI 27.91 kg/m2 2012-03-01 BMI 28.46 kg/m2 2012-02-02 BMI 28.27 kg/m2 2012-01-27 BMI 28.31 kg/m2 2011-07-04 BMI 28.39 kg/m2 2010-12-13 BMI 27.62 kg/m2 2010-07-02 BMI 28.38 kg/m2 2010-04-22 BMI 28.90 kg/m2 2010-01-30 BMI 28.27 kg/m2 2009-12-21 BMI 27.76 kg/m2 2009-04-25 BMI 27.43 kg/m2 2009-01-16 Temperature 97.0 degrees Fahrenheit 2020-07-18 Temperature 97.1 degrees Fahrenheit 2020-06-26 Temperature 98.6 degrees Fahrenheit 2020-03-06 Temperature 97.5 degrees Fahrenheit 2019-10-19 Temperature 98.2 degrees Fahrenheit 2019-09-13 Temperature 98.6 degrees Fahrenheit 2019-07-13 Temperature 97.7 degrees Fahrenheit 2019-05-25 Temperature 98.6 degrees Fahrenheit 2019-03-23 Temperature 97.4 degrees Fahrenheit 2019-03-15 Temperature 97.7 degrees Fahrenheit 2018-09-14 Temperature 97.6 degrees Fahrenheit 2018-02-23 Temperature 97.9 degrees Fahrenheit 2017-11-24 Temperature 96.7 degrees Fahrenheit 2017-07-22 Temperature 96.1 degrees Fahrenheit 2017-04-14 Temperature 98.1 degrees Fahrenheit 2017-01-16 Temperature 97.9 degrees Fahrenheit 2017-01-13 Temperature 96.2 degrees Fahrenheit 2016-10-03 Temperature 96.0 degrees Fahrenheit 2016-09-15 Temperature 97.7 degrees Fahrenheit 2016-05-15 Temperature 97.5 degrees Fahrenheit 2015-12-04 Temperature 96.9 degrees Fahrenheit 2015-09-06 Temperature 97.9 degrees Fahrenheit 2015-03-27 Temperature 96.4 degrees Fahrenheit 2015-03-06 Temperature 97.0 degrees Fahrenheit 2014-10-16 Temperature 97.0 degrees Fahrenheit 2014-09-06 Temperature 98.0 degrees Fahrenheit 2014-03-30 Temperature 97.3 degrees Fahrenheit 2013-09-08 Temperature 97.6 degrees Fahrenheit 2013-08-22 Temperature TYMPANIC:97.7 degrees Fahrenheit 2013-05 Temperature 97.9 degrees Fahrenheit 2013-01-18 Temperature TYMPANIC:97.5 degrees Fahrenheit 2012-07 Temperature TYMPANIC:98.7 degrees Fahrenheit 2012-02 Temperature TYMPANIC:97.8 degrees Fahrenheit 2012-01 Temperature TYMPANIC:97.4 degrees Fahrenheit 2011-12 Temperature TYMPANIC:98 degrees Fahrenheit 4 Temperature TYMPANIC:98.2 degrees Fahrenheit 2010-11 Temperature 97.2 degrees Fahrenheit 2010-08-15 Temperature 98.6 degrees Fahrenheit 2010-07-02 Temperature 97.6 degrees Fahrenheit 2010-06-07 Temperature 97.5 degrees Fahrenheit 2010-04-22 Temperature 96.9 degrees Fahrenheit 2010-01-30 Temperature 97.3 degrees Fahrenheit 2009-04-25 Temperature 98.3 degrees Fahrenheit 2009-02-22 Temperature 97.6 degrees Fahrenheit 2009-01-18 Temperature 96.8 degrees Fahrenheit 2009-01-16 Temperature 98.1 degrees Fahrenheit 2008-12-11 Temperature N/A degrees Fahrenheit 2006-04-01 Heart Rate 74 /min 2020-07-18 Heart Rate 67 /min 2020-06-26 Heart Rate 60 /min 2020-03-06 Heart Rate 57 /min 2019-10-19 Heart Rate 70 /min 2019-09-13 Heart Rate 71 /min 2019-07-13 Heart Rate 51 /min 2019-05-25 Heart Rate 63 /min 2019-03-23 Heart Rate 73 /min 2019-03-15 Heart Rate 58 /min 2018-09-14 Heart Rate 78 /min 2018-02-23 Heart Rate 77 /min 2017-11-24 Heart Rate 70 /min 2017-07-22 Heart Rate 68 /min 2017-04-14 Heart Rate 77 /min 2017-01-16 Heart Rate 63 /min 2017-01-13 Heart Rate 75 /min 2016-10-03 Heart Rate 65 /min 2016-09-15 Heart Rate 64 /min 2016-05-15 Heart Rate 58 /min 2015-12-04 Heart Rate 60 /min 2015-09-06 Heart Rate 48 /min 2015-03-27 Heart Rate 66 /min 2015-03-06 Heart Rate 58 /min 2014-10-16 Heart Rate 70 /min 2014-09-06 Heart Rate 56 /min 2014-03-30 Heart Rate 72 /min 2013-09-08 Heart Rate 70 /min 2013-08-22 Heart Rate 60 /min 2013-06-21 Heart Rate 66 /min 2013-01-18 Heart Rate 70 /min 2012-08-06 Heart Rate 72 /min 2012-03-25 Heart Rate 54 /min 2012-03-01 Heart Rate 62 /min 2012-02-02 Heart Rate 62 /min 2012-01-27 Heart Rate 78 /min 2011-07-04 Heart Rate 62 /min 2010-12-13 Heart Rate 61 /min 2010-08-15 Heart Rate 65 /min 2010-07-02 Heart Rate 57 /min 2010-06-07 Heart Rate 68 /min 2010-04-22 Heart Rate 74 /min 2010-01-30 Heart Rate 78 /min 2009-12-21 Heart Rate 72 /min 2009-04-25 Heart Rate 98 /min 2009-02-22 Heart Rate 76 /min 2009-01-25 Heart Rate 99 /min 2009-01-18 Heart Rate 88 /min 2009-01-16 Heart Rate 85 /min 2008-12-11 Heart Rate N/A /min 2006-04-01 Respiratory Rate 18 /min 2020-07-18 Respiratory Rate 18 /min 2020-06-26 Respiratory Rate 18 /min 2020-03-06 Respiratory Rate 18 /min 2019-10-19 Respiratory Rate 18 /min 2019-09-13 Respiratory Rate 18 /min 2019-07-13 Respiratory Rate 18 /min 2019-05-25 Respiratory Rate 18 /min 2019-03-23 Respiratory Rate 18 /min 2019-03-15 Respiratory Rate 16 /min 2018-09-14 Respiratory Rate 16 /min 2018-02-23 Respiratory Rate 16 /min 2017-11-24 Respiratory Rate 16 /min 2017-07-22 Respiratory Rate 16 /min 2017-04-14 Respiratory Rate 16 /min 2017-01-16 Respiratory Rate 16 /min 2017-01-13 Respiratory Rate 18 /min 2016-10-03 Respiratory Rate 18 /min 2016-09-15 Respiratory Rate 16 /min 2016-05-15 Respiratory Rate 16 /min 2015-12-04 Respiratory Rate 16 /min 2015-09-06 Respiratory Rate 18 /min 2015-03-27 Respiratory Rate 18 /min 2015-03-06 Respiratory Rate 18 /min 2014-10-16 Respiratory Rate 18 /min 2014-09-06 Respiratory Rate 18 /min 2014-03-30 Respiratory Rate 18 /min 2013-09-08 Respiratory Rate 18 /min 2013-08-22 Respiratory Rate 16 /min 2013-06-21 Respiratory Rate 16 /min 2013-01-18 Respiratory Rate 18 /min 2012-08-06 Respiratory Rate 15 /min 2012-03-25 Respiratory Rate 16 /min 2012-03-01 Respiratory Rate 20 /min 2012-02-02 Respiratory Rate 20 /min 2012-01-27 Respiratory Rate 18 /min 2011-07-04 Respiratory Rate 16 /min 2010-12-13 Respiratory Rate 18 /min 2010-08-15 Respiratory Rate 18 /min 2010-07-02 Respiratory Rate 18 /min 2010-06-07 Respiratory Rate 18 /min 2010-04-22 Respiratory Rate 18 /min 2010-01-30 Respiratory Rate 18 /min 2009-12-21 Respiratory Rate 18 /min 2009-02-22 Respiratory Rate 16 /min 2009-01-25 Respiratory Rate 16 /min 2009-01-16 Respiratory Rate 16 /min 2008-12-11 Oximetry 97 % 2020-07-18 Oximetry 97 % 2020-06-26 Oximetry 98 % 2020-03-06 Oximetry 97 % 2019-10-19 Oximetry 96 % 2019-09-13 Oximetry 98 % 2019-07-13 Oximetry 98 % 2019-05-25 Oximetry 97 % 2019-03-23 Oximetry 98 % 2019-03-15 Oximetry 97 % 2018-09-14 Oximetry 98 % 2018-02-23 Oximetry 98 % 2017-11-24 Oximetry 98 % 2017-07-22 Oximetry 98 % 2017-04-14 Oximetry 97 % 2017-01-16 Oximetry 97 % 2017-01-13 Oximetry 95 % 2016-10-03 Oximetry 97 % 2016-09-15 Oximetry 98 % 2016-05-15 Oximetry 98 % 2015-12-04 Oximetry 98 % 2015-09-06 Oximetry 98 % 2015-03-27 Oximetry 98 % 2015-03-06 Oximetry 97 % 2014-10-16 Oximetry 98 % 2014-09-06 Oximetry 98 % 2014-03-30 Oximetry 97 % 2013-09-08 Oximetry 97 % 2013-08-22 Oximetry 97 % 2013-06-21 Oximetry 98 % 2013-01-18 Oximetry 96 % 2012-08-06 Oximetry 98 % 2012-03-25 Oximetry 97 % 2012-02-02 Oximetry 98 % 2012-01-27 Oximetry 98 % 2011-07-04 Oximetry 96 % 2010-12-13 Oximetry 98 % 2010-08-15 Oximetry 99 % % 2010-07-02 Oximetry 98 % 2010-06-07 Oximetry 97% % 2010-04-22 Oximetry 97 % 2010-01-30 Oximetry 97 % 2009-12-21 Oximetry 96 % 2009-04-25 Oximetry 96 % 2009-02-22 Oximetry 96 % 2009-01-18 Oximetry 98 % % 2009-01-16 Oximetry 98 % 2008-12-11 Blood pressure systolic 149 mm Hg 2020-07-18 Blood pressure diastolic 76 mm Hg 2020-07-18 MEDICATIONS Medication Instructions Dosage Frequency Start End Duration Statu s Date Date Lantus SoloStar Subcutaneous as 30 units 90 days Active 100 UNIT/ML directed Clopidogrel Orally Once a day 1 tablet 24h A ctive Bisulfate 75 MG -ONE TOUCH ULTRA as directed Aug, Act caleb II METER 2018 LANCET THIN Aug, Active 2017 Metoprolol Orally Two times 1 tab(s) 12h 90 days Act caleb Tartrate 25 MG a day OneTouch Ultra 2 test strips 3 as directed Jul, Active times daily as 2019 needed NovoLOG FlexPen subcutaneously 4 per sliding Oct, Active 100 units/mL times a day. Max scale 2017 of 75 units daily Finasteride 5 mg orally once a day 1 tab(s) 24h 18 Jul, 90 d ay(s) Active 2019 Tamsulosin HCl orally once a day 1 cap(s) 24h Active 0.4 mg Vicodin 300 mg-5 orally every 6 1 tab(s) 6h 18 Jul, 7 days Active mg hours 2020 Aspirin 81 MG orally once a day 1 tab(s) 24h Active Insulin Pen as directed May, Active Needle 31G X 8 2020 MM Atorvastatin orally once a day 1 tab(s) Active Calcium 80 mg (at bedtime) Amiodarone HCl Orally Once a day 1 tablet 24h Active 200 MG Nitroglycerin sublingually 1 tab(s) 30 day(s) Ac tive 0.4 mg every 5 minutes x 3 then call 911 if pain still present ONETOUCH LANCETS Aug, 90 days Active 2018 metFORMIN HCl ER Orally Once a day 1 tablet 24h Nov, Active 750 mg 2019 PROCEDURES Procedure Date Ordered Result Body Site N.CL,INJ.FEE.MEDICARE-PNEUMCOC(53520) March 06, 2015 Dep screen neg (61542) March 06, 2020 KENALOG 40 MG- BILL PER 10 MG March 06, 2015 ELECTROCARDIOGRAM REPORT January 30, 2010 Tob non-user (57533) Sep 14, 2018 GLUCOSE BLOOD TEST(02999) February 22, 2009 ELECTROCARDIOGRAM REPORT January 16, 2009 PROS CANCR SCR; PROS ANTIG TST TOT February 23, 2018 SBIRT screen w intervention (33177) January 13, 2017 UA-DIPSTICK ([facility] code 32794) Apr 14, 2017 ASPIRIN/CLOPIDOGREL RXD Sep 06, 2015 PREHTN/HTN BP DOC INDCD F/U DOC Jul 22, 2017 DIGITAL RECTAL EXAMINATION ANNUAL January 16, 2009 PROS CANCR SCR; PROS ANTIG TST TOT January 16, 2009 PAIN ASSESS POS TOOL F/U PLAN DOC Sep 06, 2015 KENALOG 40 MG- BILL PER 10 MG Sep 06, 2015 TOBACCO USE, SMOKING, ASSESS Jul 22, 2017 TOBACCO USE, SMOKING, ASSESS Apr 14, 2017 KENALOG 40 MG- BILL PER 10 MG May 15, 2016 OCCULT BLOOD DIAGNOSTIC ([id number]) March 15, 2019 BMI normal (21954) January 13, 2017 ELECTROCARDIOGRAM, TRACING January 30, 2010 BMI elevated, counseled (05604) November 24, 2017 Med Rec done (15929) February 23, 2018 PROS CANCR SCR; PROS ANTIG TST TOT March 06, 2020 Injection,major joint (shoulder, hip, March 06, 2015 knee) TOBACCO USE, SMOKING, ASSESS January 13, 2017 HG A1C LEVEL 7.0-9.0% Sep 06, 2015 TOBACCO NON-USER December 04, 2015 Tob non-user ([id number]) Apr 14, 2017 Tob non-user ([id number]) Jul 22, 2017 SBIRT SCREEN negative March 15, 2019 DM OP SLF-MGMT TRN SRVC IND-30 MIN January 18, 2009 EKG INTER (01996) Apr 25, 2009 BLOOD PRESSURE, MEASURED Sep 06, 2015 VISUAL ACUITY SCREEN Sep 08, 2013 SBIRT SCREEN negative February 23, 2018 SBIRT SCREEN negative January 13, 2017 DIABETIC FOOT EXAM PERFORM&DOC March 23, 2019 SBIRT SCREEN negative March 06, 2020 Dep screen neg (41795) Sep 14, 2018 BP SCR PRFRM RCMDD DEFIND SCR INTVL November 24, 2017 EKG INTER (05727) January 16, 2009 VISUAL ACUITY SCREEN January 16, 2009 BP SCR PRFRM RCMDD DEFIND SCR INTVL Apr 14, 2017 BP SCR PRFRM RCMDD DEFIND SCR INTVL Jul 22, 2017 BP SCR PRFRM RCMDD DEFIND SCR INTVL December 04, 2015 LDL-C <100 MG/DL Sep 06, 2015 FOOT EXAMINATION PERFORMED Oct 19, 2019 Depo-medrol 80 March 01, 2012 OCCULT BLOOD, FECES, SINGLE January 16, 2009 Injection,major joint (shoulder, hip, May 15, 2016 knee) BMI normal (20588) Jul 22, 2017 Med Rec done (01783) November 24, 2017 Med Rec done (47065) Sep 14, 2018 -Influenza FLUZONE NONSTATE 3+yrs preser Sep 06, 2014 free HG A1C LEVEL 7.0-9.0% December 04, 2015 BMI normal (92517) Apr 14, 2017 PROS CANCR SCR; PROS ANTIG TST TOT March 15, 2019 ANNUAL ALCOHOL MISUSE SCREEN 15 MIN January 13, 2017 DIGITAL RECTAL EXAMINATION ANNUAL February 23, 2018 Dep scrn pos, plan documented (71963) March 06, 2020 OCCULT BLOOD DIAGNOSTIC ([id number]) January 30, 2010 PURE TONE AUDIOMETRY, AIR January 16, 2009 HTN DX,Diastolic BP<90 (27920) Sep 14, 2018 Tob non-user (97388) November 24, 2017 Dep screen neg (28811) Jul 22, 2017 Dep screen neg (17709) Apr 14, 2017 NEG SCR D PT NOT ELIG F/U/PLN DOC December 04, 2015 ELECTROCARDIOGRAM, TRACING Apr 25, 2009 Injection,major joint (shoulder, hip, Sep 06, 2015 knee) OPD PRO C W/CON 1ST HR January 18, 2009 LIST CUR MEDS W/DOSAGES DOC BY PROV December 04, 2015 IMMUNIZATION INJ FEE, 1ST Sep 06, 2014 ELECTROCARDIOGRAM REPORT Apr 25, 2009 HTN DX,Systolic BP =>140 (19590) Sep 14, 2018 Dep screen neg (81866) November 24, 2017 Fall Risk Assessment Completed 2017-01-13 N/A Med Rec done (64752) Jul 22, 2017 SBIRT screening 2017-01-13 N/A Med Rec done (31795) Apr 14, 2017 Fall Risk Assessment Completed 2018-02-23 N/A DIGITAL RECTAL EXAMINATION ANNUAL March 06, 2015 SBIRT screening 2018-02-23 N/A PURE TONE AUDIOMETRY, AIR January 30, 2010 HTN DX,Diastolic BP<90 (96938) March 15, 2019 zzPREV: eye exam 2018-06-23 Mild DM retinopathy CARDIOVASCULAR STRESS TEST Apr 01, 2006 BP SCR PRFRM RCMDD DEFIND SCR INTVL Sep 06, 2015 Fall Risk Assessment Completed 2019-03-15 N/A DIGITAL RECTAL EXAMINATION ANNUAL January 13, 2017 Medicare subsq.Annual Wellness Visit February 23, 2018 ([id number]) PROS CANCR SCR; PROS ANTIG TST TOT January 13, 2017 ANNUAL ALCOHOL MISUSE SCREEN 15 MIN March 06, 2020 Medicare subsq.Annual Wellness Visit March 15, 2019 ([id number]) OCCULT BLOOD DIAGNOSTIC ([email or web address]) January 13, 2017 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, 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 January 18, 2009 ANNUAL DEPRESSION SCREENING 15 MIN March 15, 2019 N.CL,INJ.FEE.MEDICARE-PNEUMCOC(19804) January 13, 2017 ANNUAL DEPRESSION SCREENING 15 MIN February 23, 2018 PROS CANCR SCR; PROS ANTIG TST TOT Sep 08, 2013 STERILE 4X4 (25841) March 06, 2015 SBIRT screen w intervention (30880) March 06, 2020 PROS CANCR SCR; PROS ANTIG TST TOT January 30, 2010 EKG INTER (06696) January 30, 2010 DIGITAL RECTAL EXAMINATION ANNUAL March 06, 2020 PROS CANCR SCR; PROS ANTIG TST TOT March 06, 2015 ANNUAL DEPRESSION SCREENING 15 MIN March 06, 2020 DIGITAL RECTAL EXAMINATION ANNUAL January 30, 2010 VISUAL ACUITY SCREEN January 30, 2010 ANNUAL WELLNESS VST; PPS SUBSQT VST January 13, 2017 SBIRT screen w intervention (40772) February 23, 2018 DIGITAL RECTAL EXAMINATION ANNUAL Sep 08, 2013 OCCULT BLOOD DIAGNOSTIC ([email or web address]) March 06, 2015 SBIRT screen w intervention (74051) March 15, 2019 PNEUMOCOCCAL VACC, 13 SHARAN IM March 06, 2015 OCCULT BLOOD DIAGNOSTIC ([email or web address]) Sep 08, 2013 BMI elevated, counseled (48055) February 23, 2018 DIGITAL RECTAL EXAMINATION ANNUAL March 15, 2019 Dep screen neg (87727) February 23, 2018 Med Rec done (40847) January 13, 2017 GLUCOSE BLOOD TEST(27088) Apr 25, 2009 GLUCOSE BLOOD TEST(94460) January 18, 2009 Tob non-user (61866) March 15, 2019 NEG SCR D PT NOT ELIG F/U/PLN DOC Sep 06, 2015 ASPIRIN/OTH ANTITHROMBOTIC TX USED Sep 06, 2015 Dep screen neg (45766) January 13, 2017 BMI elevated, counseled (83254) March 15, 2019 OCCULT BLOOD DIAGNOSTIC ([id number]) March 06, 2020 PNEUMOCOCCAL VACC, 13 SHARAN IM March 06, 2020 Tob non-user (03989) February 23, 2018 Med Rec done (26046) March 15, 2019 SBIRT screening 2019-03-15 neg Fall Risk Assessment Completed 2020-03-06 N/A AIRCAST WALKER (10877) March 25, 2012 Pneumococcal ADULT NONSTATE PPSV23 [id number] January 13, 2017 ANNUAL ALCOHOL MISUSE SCREEN 15 MIN February 23, 2018 Tob non-user (02983) January 13, 2017 PURE TONE AUDIOMETRY, AIR Sep 08, 2013 TOBACCO NON-USER Sep 06, 2015 LIPID PROFILE RESULTS DOC & REVIEW Sep 06, 2015 HTN DX,Systolic BP <140 (53198) March 15, 2019 BP SCR PRFRM RCMDD DEFIND SCR INTVL February 23, 2018 ANNUAL ALCOHOL MISUSE SCREEN 15 MIN March 15, 2019 ANNUAL DEPRESSION SCREENING 15 MIN January 13, 2017 Medicare subsq.Annual Wellness Visit March 06, 2020 (06871) Injection,major joint (shoulder, hip, March 01, 2012 knee) BP SCR PRFRM RCMDD DEFIND SCR INTVL January 13, 2017 ELECTROCARDIOGRAM, TRACING January 16, 2009 OCCULT BLOOD DIAGNOSTIC ([email or web address]) February 23, 2018 RESULTS Name Result Date Reference Range CT Abd/Pelvis w/o ([id number]) 2020-07-16 See Below For Report CBC WITH AUTO DIFF 2020-07-16 WBC 7.9 4.0-12.0 RBC 5.4 4.5-6.0 HGB 14.1 13.5-18.0 HCT 44.9 42.0-52.0 MCV 84 78-100 MCH 26.2 27.0-32.0 MCHC 31.4 32.0-36.0 RDW 14.5 11.0-14.0 PLT 196 140-440 MPV 9.2 7.4-11.0 ANC# 4.4 1.4-7.9 IG# 0.02 0.00-0.10 LY# 1.90 1.50-4.00 MO# 0.68 0.20-0.80 EO# 0.96 0.00-0.70 BA# 0.03 0.00-0.20 NE% 54.7 IG% 0.3 0.0-1.0 LY% 23.9 MO% 8.6 EO% 12.1 BA% 0.4 COMPMET 2020-07-16 GLUC 149 74-106 BUN 17 7-25 CREATS 1.03 0.70-1.30 EGFR >60 >=60 NA 135 136-144 K+ 4.1 3.5-5.1 CL 103 98-110 CO2 29 22-32 CA 9.4 8.6-10.3 TP 7.4 6.0-8.3 ALB 4.2 3.4-5.0 TBIL 0.8 0.3-1.2 DBIL 0.1 0.0-0.2 ALKP 100 34-104 AST 14 13-39 ALT 15 7-52 UA-DIP PLUS MICRO W/REFLEX 2020-07-16 COL Yellow YELLOW CLARITY Clear CLEAR SG 1.010 1.001-1.035 GLU. Negative NEGATIVE JATIN Negative NEGATIVE KET Negative NEGATIVE BLD Moderate NEGATIVE PH 5.5 5.0-8.0 PROT Negative NEGATIVE UROBILINOGEN 0.2 0.2-1.0 NIT Negative NEGATIVE DEZ Negative NEGATIVE MUC NEGATIVE BACT NEGATIVE JASON NEG EPI NEG RBCS NEG WBCS NEGATIVE CAST NEG AMORPH NEG BASEMET 2020-06-26 GLUC 152 74-106 BUN 14 7-25 CREATS 0.93 0.70-1.30 EGFR >60 >=60 NA 138 136-144 K+ 5.0 3.5-5.1 CL 103 98-110 CO2 29 22-32 CA 9.6 8.6-10.3 HEMOGLOBIN A1C 2020-06-26 HGBA1C 6.8 4.0-6.0 CMG 148 LIVER FUNCTION TESTS 2020-06-26 TP 7.2 6.0-8.3 ALB 4.2 3.4-5.0 TBIL 0.7 0.3-1.2 DBIL 0.2 0.0-0.2 ALKP 107 34-104 AST 20 13-39 ALT 24 7-52 LIPID W/ CALCULATED LDL 2020-06-26 CHOL 123 0-200 TRIG 83 0-200 HDL 33 23-92 LDL CALC 73 5-99 CHOL/HDL 3.7 0.0-4.5 BASEMET 2020-03-16 GLUC 161 74-106 BUN 17 7-25 CREATS 0.93 0.70-1.30 EGFR >60 >=60 NA 138 136-144 K+ 4.5 3.5-5.1 CL 104 98-110 CO2 29 22-32 CA 9.4 8.6-10.3 Cardio:Bess Cutler 2020-03-13 CPT-[id number] Occult Blood Random-DIAGNOSTIC (NON SCREENING) Occult Blood Random NEGATIVE OCCULT BLOOD BASEMET 2020-03-06 GLUC 112 74-106 BUN 21 7-25 CREATS 0.83 0.70-1.30 EGFR >60 >=60 NA 139 136-144 K+ 4.4 3.5-5.1 CL 104 98-110 CO2 30 22-32 CA 9.3 8.6-10.3 CBC WITH AUTO DIFF 2020-03-06 WBC 7.4 4.0-12.0 RBC 4.8 4.5-6.0 HGB 13.5 13.5-18.0 HCT 41.4 42.0-52.0 MCV 86 78-100 MCH 28.2 27.0-32.0 MCHC 32.6 32.0-36.0 RDW 12.8 11.0-14.0 PLT 182 140-440 MPV 10.5 7.4-11.0 ANC# 4.0 1.4-7.9 IG# 0.01 0.00-0.10 LY# 1.76 1.50-4.00 MO# 0.53 0.20-0.80 EO# 1.04 0.00-0.70 BA# 0.05 0.00-0.20 NE% 54.4 IG% 0.1 0.0-1.0 LY% 23.7 MO% 7.1 EO% 14.0 BA% 0.7 HEMOGLOBIN A1C 2020-03-06 HGBA1C 6.4 4.0-6.0 CMG 137 LIVER FUNCTION TESTS 2020-03-06 TP 6.9 6.0-8.3 ALB 4.2 3.4-5.0 TBIL 0.7 0.3-1.2 DBIL 0.1 0.0-0.2 ALKP 97 34-104 AST 19 13-39 ALT 23 7-52 LIPID W/ CALCULATED LDL 2020-03-06 CHOL 115 0-200 TRIG 65 0-200 HDL 38 23-92 LDL CALC 64 5-99 CHOL/HDL 3.0 0.0-4.5 PSA-DIAGNOSTIC 2020-03-06 PSA-D 8.390 0.000-4.000 TSH 2020-03-06 TSH 1.668 0.450-5.330 HEP-C, AB Screen ([id number]) 2020-03-06 Hep C Virus Ab <0.1 0.0-0.9 EKG #1-IN OFFICE TODAY 2020-03-06 PHQ-9 Score 0 PREV: DIABETIC FOOT EXAM 2019-10-19 BASEMET 2019-09-13 GLUC 147 74-106 BUN 28 7-25 CREATS 1.18 0.70-1.30 EGFR >60 >=60 NA 139 136-144 K+ 5.0 3.5-5.1 CL 104 98-110 CO2 29 22-32 CA 10.2 8.6-10.3 HEMOGLOBIN A1C 2019-09-13 HGBA1C 6.5 4.0-6.0 CMG 140 LIVER FUNCTION TESTS 2019-09-13 TP 7.4 6.0-8.3 ALB 4.4 3.4-5.0 TBIL 0.5 0.3-1.2 DBIL 0.1 0.0-0.2 ALKP 89 34-104 AST 14 13-39 ALT 14 7-52 LIPID W/ CALCULATED LDL 2019-09-13 CHOL 182 0-200 TRIG 108 0-200 HDL 40 23-92 LDL CALC 120 5-99 CHOL/HDL 4.6 0.0-4.5 CBC WITH AUTO DIFF 2019-03-15 WBC 5.8 4.0-12.0 RBC 5.0 4.5-6.0 HGB 14.1 13.5-18.0 HCT 42.6 42.0-52.0 MCV 85 78-100 MCH 28.3 27.0-32.0 MCHC 33.1 32.0-36.0 RDW 12.4 11.0-14.0 PLT 182 140-440 MPV 10.2 7.4-11.0 ANC# 3.5 1.4-7.9 IG# 0.01 0.00-0.10 LY# 1.67 1.50-4.00 MO# 0.43 0.20-0.80 EO# 0.18 0.00-0.70 BA# 0.04 0.00-0.20 NE% 59.9 IG% 0.2 0.0-1.0 LY% 28.7 MO% 7.4 EO% 3.1 BA% 0.7 COMPMET 2019-03-15 GLUC 127 74-106 BUN 15 7-25 CREATS 0.93 0.70-1.30 EGFR >60 >=60 NA 140 136-144 K+ 4.3 3.5-5.1 CL 105 98-110 CO2 27 22-32 CA 9.5 8.6-10.3 TP 7.0 6.0-8.3 ALB 4.2 3.4-5.0 TBIL 0.6 0.3-1.2 DBIL 0.1 0.0-0.2 ALKP 75 34-104 AST 16 13-39 ALT 14 7-52 HEMOGLOBIN A1C 2019-03-15 HGBA1C 7.2 4.0-6.0 CMG 160 LIPID W/ CALCULATED LDL 2019-03-15 CHOL 175 0-200 TRIG 74 0-200 HDL 36 23-92 LDL CALC 124 5-99 CHOL/HDL 4.9 0.0-4.5 PSA-DIAGNOSTIC 2019-03-15 PSA-D 2.770 0.000-4.000 Cardio:Bess Cutler 2018-09-21 CPT-[id number] Cardio:Echo,TTE,transTHORACIC (CPT-[id number]) VINAY (Antinuclear Abs) 2018-09-14 ANTINUCLEAR ANTIBODIES, IFA Positive HOMOGENEOUS PATTERN NUCLEOLAR PATTERN SPECKLED PATTERN 1:80 CENTROMERE PATTERN COMPMET 2018-09-14 GLUC 166 74-106 BUN 13 7-25 CREATS 0.88 0.70-1.30 EGFR >60 >=60 NA 137 136-144 K+ 4.5 3.5-5.1 CL 102 98-110 CO2 30 22-32 CA 9.8 8.6-10.3 TP 7.0 6.0-8.3 ALB 4.4 3.4-5.0 TBIL 0.7 0.3-1.2 DBIL 0.1 0.0-0.2 ALKP 70 34-104 AST 16 13-39 ALT 21 7-52 CPK 2018-09-14 CPK 68 30-223 CRP-INFLAM 2018-09-14 CRP <0.2 0.0-0.9 HEMOGLOBIN A1C 2018-09-14 HGBA1C 7.1 4.0-6.0 CMG 157 LIPID W/ CALCULATED LDL 2018-09-14 CHOL 197 0-200 TRIG 113 0-200 HDL 43 23-92 LDL CALC 131 5-99 CHOL/HDL 4.6 0.0-4.5 RHEUMATOID FACTOR TITER 2018-09-14 RA LATEX TURBID. 10.1 0.0-13.9 SED RATE 2018-09-14 ESR 16 0-20 EKG #1-IN OFFICE TODAY 2018-09-14 CBC WITH AUTO DIFF 2018-02-23 WBC 6.7 4.0-12.0 RBC 4.8 4.5-6.0 HGB 13.5 13.5-18.0 HCT 40.6 42.0-52.0 MCV 84 78-100 MCH 28.0 27.0-32.0 MCHC 33.3 32.0-36.0 RDW 13.2 11.0-14.0 PLT 207 140-440 MPV 10.4 7.4-11.0 ANC# 4.1 1.4-7.9 IG# 0.0 0.0-0.1 LY# 2.0 1.5-4.0 MO# 0.4 0.2-0.8 EO# 0.2 0.0-0.7 BA# 0.0 0.0-0.2 NE% 61.9 IG% 0.3 0.0-1.0 LY% 29.7 MO% 5.8 EO% 2.2 BA% 0.4 COMPMET 2018-02-23 GLUC 259 74-106 BUN 23 7-18 CREATS 0.96 0.55-1.30 EGFR >60 >=60 NA 139 136-144 K+ 4.2 3.7-5.0 CL 102 98-108 CO2 26 22-32 CA 9.6 8.5-10.1 TP 6.8 6.5-8.1 ALB 3.7 3.4-5.0 TBIL 0.6 0.3-1.2 DBIL 0.1 0.0-0.2 ALKP 80 46-116 AST 19 15-37 ALT 23 13-78 HEMOGLOBIN A1C 2018-02-23 HGBA1C 7.0 4.0-6.0 CMG 154 LIPID W/ CALCULATED LDL 2018-02-23 CHOL 126 0-200 TRIG 56 0-200 HDL 43 23-92 LDL CALC 72 5-99 CHOL/HDL 2.9 0.0-4.5 PSA FREE & TOTAL (DIAGNOSTIC) 2018-02-23 PROSTATE SPECIFIC AG, SERUM 2.4 0.0- 4.0 PSA, FREE 0.74 N/A % FREE PSA 30.8 COMPMET 2017-11-24 GLUC 136 74-106 BUN 20 7-18 CREATS 0.90 0.55-1.30 EGFR >60 >=60 NA 139 136-144 K+ 4.2 3.7-5.0 CL 103 98-108 CO2 26 22-32 CA 8.9 8.5-10.1 TP 7.3 6.5-8.1 ALB 4.0 3.4-5.0 TBIL 0.5 0.3-1.2 DBIL 0.1 0.0-0.2 ALKP 95 46-116 AST 23 15-37 ALT 29 13-78 HEMOGLOBIN A1C 2017-11-24 HGBA1C 6.9 4.6-6.2 CMG 151 LIPID W/ CALCULATED LDL 2017-11-24 CHOL 138 0-200 TRIG 63 0-200 HDL 44 40-60 LDL CALC 81 5-99 CHOL/HDL 3.1 0.0-4.5 COMPMET 2017-07-22 GLUC 115 74-106 BUN 16 7-18 CREATS 1.00 0.55-1.30 EGFR >60 >=60 NA 139 136-144 K+ 4.2 3.7-5.0 CL 104 98-108 CO2 28 22-32 CA 8.7 8.5-10.1 TP 7.2 6.5-8.1 ALB 3.6 3.4-5.0 TBIL 0.4 0.3-1.2 DBIL 0.1 0.0-0.2 ALKP 106 46-116 AST 17 15-37 ALT 26 13-78 HEMOGLOBIN A1C 2017-07-22 HGBA1C 8.2 4.6-6.[address] Abd/Pelvis w/o ([id number]) 2017-04-16 See Below For Report COMPMET 2017-04-14 GLUC 184 74-106 BUN 21 7-18 CREATS 0.96 0.55-1.30 EGFR >60 >=60 NA 138 136-144 K+ 4.9 3.7-5.0 CL 103 98-108 CO2 30 22-32 CA 9.2 8.5-10.1 TP 7.1 6.5-8.1 ALB 4.0 3.4-5.0 TBIL 0.4 0.3-1.2 DBIL 0.1 0.0-0.2 ALKP 111 46-116 AST 19 15-37 ALT 29 13-78 HEMOGLOBIN A1C 2017-04-14 HGBA1C 7.8 4.6-6.2 CMG 177 LIPID W/ CALCULATED LDL 2017-04-14 CHOL 136 0-200 TRIG 112 0-200 HDL 34 40-60 LDL CALC 80 5-99 CHOL/HDL 4.0 0.0-4.5 UA DIPSTICK ONLY-DIAGNOSTIC 2017-04-14 Color yellow Clarity Specific Sparkman 1.020 Glucose. neg Bilirubin neg Ketones neg Blood trace-intact PH 5.5 Protein neg Urobilinogen 0.2 Nitrite neg Leukocytes neg US Abdomen Limited ([id number]) 2017-01-15 See Below For Report Occult Blood Random-DIAGNOSTIC 2017-01-13 (NON SCREENING) Occult Blood Random NEGATIVE OCCULT BLOOD UA DIPSTICK ONLY-with CPE/ICC 2017-01-13 COLOR yellow CLARITY SPECIFIC GRAVITY 1.015 GLUCOSE neg BILIRUBIN neg KETONES neg BLOOD trace-intact PH 5.5 PROTEIN neg UROBILINOGEN 0.2 LEUKOCYTES neg NITRITES neg COMPMET 2017-01-13 GLUC 126 74-106 BUN 14 7-18 CREATS 0.93 0.55-1.30 EGFR >60 >=60 NA 142 136-144 K+ 4.2 3.7-5.0 CL 104 98-108 CO2 30 22-32 CA 9.4 8.5-10.1 TP 7.6 6.5-8.1 ALB 4.3 3.4-5.0 TBIL 0.6 0.3-1.2 DBIL 0.1 0.0-0.2 ALKP 107 46-116 AST 29 15-37 ALT 46 13-78 HEMOGLOBIN A1C 2017-01-13 HGBA1C 8.3 4.6-6.2 CMG 192 LIPID W/ CALCULATED LDL 2017-01-13 CHOL 184 0-200 TRIG 135 0-200 HDL 41 40-60 LDL CALC 116 5-99 CHOL/HDL 4.5 0.0-4.5 PSA FREE & TOTAL (DIAGNOSTIC) 2017-01-13 PROSTATE SPECIFIC AG, SERUM 2.0 0.0- 4.0 PSA, FREE 0.77 N/A % FREE PSA 38.5 GLUCOSE 2016-10-13 GLUCOSE Glucose GLUCOSE 148 EKG #1-IN OFFICE TODAY 2016-10-03 MR Joint Upper Ext R w/o 2016-09-17 ([id number]) See Below For Report COMPMET 2016-09-15 GLUC 180 74-106 BUN 16 7-18 CREATS 0.98 0.55-1.30 EGFR >60 >=60 NA 141 136-144 K+ 4.6 3.7-5.0 CL 103 98-108 CO2 28 22-32 CA 9.2 8.5-10.1 TP 7.4 6.5-8.1 ALB 4.1 3.4-5.0 TBIL 0.7 0.3-1.2 DBIL 0.2 0.0-0.2 ALKP 97 46-116 AST 23 15-37 ALT 39 13-78 HEMOGLOBIN A1C 2016-09-15 HGBA1C 7.3 4.6-6.2 CMG 163 LIPID W/ CALCULATED LDL 2016-09-15 CHOL 158 0-200 TRIG 123 0-200 HDL 44 40-60 LDL CALC 89 5-99 CHOL/HDL 3.6 0.0-4.5 LIPID PANEL (no LDL) 2016-08-12 CHOL 150 0-200 TRIG 74 0-200 HDL 43 40-60 CHOL/HDL 3.5 0.0-4.5 X Shoulder R See Below For Report COMPMET 2016-05-15 GLUC 180 74-106 BUN 17 7-18 CREATS 0.94 0.55-1.30 EGFR >60 >=60 NA 141 136-144 K+ 3.9 3.7-5.0 CL 102 98-108 CO2 31 22-32 CA 9.1 8.5-10.1 TP 7.0 6.5-8.1 ALB 4.0 3.4-5.0 TBIL 0.8 0.3-1.2 DBIL 0.2 0.0-0.2 ALKP 91 46-116 AST 24 15-37 ALT 29 13-78 HEMOGLOBIN A1C 2016-05-15 HGBA1C 6.7 4.6-6.2 CMG 146 LIPID W/ CALCULATED LDL 2016-05-15 CHOL 143 0-200 TRIG 182 0-200 HDL 38 40-60 LDL CALC 69 5-99 CHOL/HDL 3.8 0.0-4.5 COMPMET 2015-12-04 GLUC 197 74-106 BUN 15 7-18 CREATS 0.97 0.55-1.30 EGFR >60 >=60 NA 141 136-144 K+ 4.1 3.7-5.0 CL 104 98-108 CO2 30 22-32 CA 8.9 8.5-10.1 TP 6.8 6.5-8.1 ALB 3.8 3.4-5.0 TBIL 0.6 0.3-1.2 DBIL 0.1 0.0-0.2 ALKP 77 46-116 AST 17 15-37 ALT 26 13-78 HEMOGLOBIN A1C 2015-12-04 HGBA1C 7.6 4.6-6.2 CMG 171 LIPID W/ CALCULATED LDL 2015-12-04 CHOL 143 0-200 TRIG 55 0-200 HDL 42 40-60 LDL CALC 90 5-99 CHOL/HDL 3.4 0.0-4.5 LIPID W/ CALCULATED LDL 2015-09-25 CHOL 133 0-200 TRIG 56 0-200 HDL 42 40-60 LDL CALC 80 5-99 CHOL/HDL 3.2 0.0-4.5 COMPMET 2015-09-06 GLUC 156 74-106 BUN 21 7-18 CREATS 1.02 0.55-1.30 EGFR >60 >=60 NA 141 136-144 K+ 4.8 3.7-5.0 CL 104 98-108 CO2 26 22-32 CA 9.1 8.5-10.1 TP 7.1 6.5-8.1 ALB 4.1 3.4-5.0 TBIL 0.7 0.3-1.2 DBIL 0.2 0.0-0.2 ALKP 91 46-116 AST 26 15-37 ALT 37 13-78 HEMOGLOBIN A1C 2015-09-06 HGBA1C 8.2 4.6-6.2 CMG 189 LIPID W/ CALCULATED LDL 2015-09-06 CHOL 124 0-200 TRIG 50 0-200 HDL 39 40-60 LDL CALC 75 5-99 CHOL/HDL 3.2 0.0-4.5 CBC WITH AUTO DIFF 2015-03-06 WBC 6.8 4.0-12.0 RBC 4.9 4.5-6.0 HGB 13.9 13.5-18.0 HCT 41.5 42.0-52.0 MCV 85 78-100 MCH 28.3 27.0-32.0 MCHC 33.5 32.0-36.0 RDW 13.4 11.0-14.0 PLT 197 140-440 MPV 10.6 7.4-11.0 NE% 65.7 45.0-75.0 LY% 24.3 20.0-50.0 MO% 6.7 2.0-10.0 EO% 2.9 0.0-6.0 BA% 0.4 0.0-1.0 ANC 4.5 1.4-7.9 COMPMET 2015-03-06 GLUC 183 74-106 BUN 20 7-18 CREATS 0.89 0.60-1.30 EGFR >60 >=60 NA 140 136-144 K+ 4.0 3.7-5.0 CL 102 98-108 CO2 33 22-32 CA 9.3 8.5-10.1 TP 6.9 6.5-8.1 ALB 4.0 3.4-5.0 TBIL 0.7 0.3-1.2 DBIL 0.2 0.0-0.2 ALKP 96 46-116 AST 19 15-37 ALT 31 13-78 HEMOGLOBIN A1C 2015-03-06 HGBA1C 7.0 4.6-6.2 CMG 154 HIV 1/2 ANTIBODIES 2015-03-06 HIV 1/0/2 ABS INDEX VALUE <1.00 <1.00 HIV 1/0/2 ABS QUAL Non Reactive Non Reactive LIPID W/ CALCULATED LDL 2015-03-06 CHOL 128 0-200 TRIG 80 0-200 HDL 39 40-60 LDL CALC 73 5-99 CHOL/HDL 3.3 0.0-4.5 PSA-DIAGNOSTIC 2015-03-06 PSA-D 1.610 0.000-4.000 MICROALBUMIN/CREAT RATIO (ACR) 2015-03-06 ALB/CREA RATIO 3.60 0.00-30.00 Occult Blood Random-DIAGNOSTIC 2015-03-06 (NON SCREENING) Occult Blood Random NEGATIVE OCCULT BLOOD UA DIPSTICK ONLY-with CPE/ICC 2015-03-06 COLOR yellow CLARITY clear SPECIFIC GRAVITY 1.030 GLUCOSE Neg BILIRUBIN Neg KETONES Neg BLOOD Trace-Lysed PH 5.5 PROTEIN Neg UROBILINOGEN 0.2 LEUKOCYTES Neg NITRITES Neg COMPMET 2014-09-06 GLUC 134 74-106 BUN 17 7-18 CREATS 0.78 0.60-1.30 EGFR >60 >=60 NA 140 136-144 K+ 4.1 3.7-5.0 CL 103 98-108 CO2 29 22-32 CA 9.2 8.5-10.1 TP 7.2 6.5-8.1 ALB 4.1 3.4-5.0 TBIL 0.7 0.3-1.2 DBIL 0.2 0.0-0.2 ALKP 98 46-116 AST 20 15-37 ALT 34 13-78 HEMOGLOBIN A1C 2014-09-06 HGBA1C 7.3 4.6-6.2 CMG 163 HEP-C, ANTIBODY 2014-09-06 LIPID W/ CALCULATED LDL 2014-09-06 CHOL 150 0-200 TRIG 71 0-200 HDL 42 40-60 LDL CALC 94 5-99 CHOL/HDL 3.6 0.0-4.5 DUNCAN 2014-09-06 DOG 458.00 0.00-65.00 CAT 3769.00 0.00-65.00 VARELA 16.10 0.00-65.00 D.PTERONYS 26.90 0.00-65.00 D.FARINAE 18.50 0.00-65.00 BGRASS 16.40 0.00-65.00 FEATHERS 19.30 0.00-65.00 IGE-AVH 178.00 0.00-20.00 RAST ADULT FOOD 2014-09-06 EGG WHITE 10.30 0.00-65.00 MILK 14.10 0.00-65.00 FISH COD 21.10 0.00-65.00 WHEAT 17.20 0.00-65.00 RYE 16.00 0.00-65.00 OAT 15.20 0.00-65.00 NATE 9.63 0.00-65.00 CLAM 14.90 0.00-65.00 WALNUT 287.00 0.00-65.00 CORN 15.00 0.00-65.00 PEANUT 11.90 0.00-65.00 SOY LINARES 12.60 0.00-65.00 SHRIMP 15.60 0.00-65.00 TOMATO 10.30 0.00-65.00 ORANGE 10.70 0.00-65.00 STRAWBERRY 6.29 0.00-65.00 YEAST 9.57 0.00-65.00 IGE-AVH 178.00 0.00-20.00 RASTB 2014-09-06 PEREN RYE 9.87 0.00-65.00 GARRISON.GRASS 11.90 0.00-65.00 GOOSEFOOT 19.50 0.00-65.00 G.RAGWEED 18.70 0.00-65.00 RAGWEED 19.20 0.00-65.00 MUGWORT 10.70 0.00-65.00 PIGWEED 12.50 0.00-65.00 SHEEP SORE 17.42 0.00-65.00 PLAINTAIN 21.40 0.00-65.00 IGE-AVH 178.00 0.00-20.00 RASTC 2014-09-06 ELM 12.80 0.00-65.00 BOXELDER 13.70 0.00-65.00 WH OAK 13.90 0.00-65.00 WHI BIRCH 12.90 0.00-65.00 COTTONWOOD 17.00 0.00-65.00 SHAG HICKO 10.30 0.00-65.00 RED CEDAR 8.74 0.00-65.00 DIMPLE 11.70 0.00-65.00 IGE-AVH 178.00 0.00-20.00 RASTD 2014-09-06 SYCAMORE 17.00 0.00-65.00 ALTER 14.70 0.00-65.00 CLAD 12.80 0.00-65.00 ASPER 12.00 0.00-65.00 PENICILLIN 12.00 0.00-65.00 EPICEUM 12.90 0.00-65.00 HELMO 15.10 0.00-65.00 CURVULARIA 10.50 0.00-65.00 IGE-AVH 178.00 0.00-20.00 RASTF 2014-09-06 RASTE 2014-09-06 RED TOP 10.00 0.00-65.00 ORCHARD GRASS 13.90 0.00-65.00 WHITE NATALIO 14.90 0.00-65.00 BLACK WALNUT 12.30 0.00-65.00 BLACK WILLOW 18.40 0.00-65.00 BEECH 14.00 0.00-65.00 POPLAR 17.00 0.00-65.00 BURWEED MARSHELDER 14.60 0.00-65.00 ALLERGY % QUOTIENT CLASS LEVEL OF ALLERGY <65 0 Below Range 65-90 0/1 BASEMET 2014-03-30 GLUC 143 74-106 BUN 14 7-18 CREATS 0.72 0.60-1.30 EGFR >60 >=60 NA 138 136-144 K+ 4.3 3.7-5.0 CL 104 98-108 CO2 29 22-32 CA 9.2 8.5-10.1 HEMOGLOBIN A1C 2014-03-30 HGBA1C 7.3 4.6-6.2 CMG 163 LIPID W/ CALCULATED LDL 2014-03-30 CHOL 164 0-200 TRIG 199 0-200 HDL 37 40-60 LDL CALC 87 5-99 CHOL/HDL 4.4 0.0-4.5 Cardio:Bess uCtler 2013-10-04 [id number] CBC WITH AUTO DIFF 2013-09-08 WHITE BLOOD COUNT 7.3 4.0-12.0 RED CELL COUNT 5.2 4.5-6.0 HEMOGLOBIN 14.3 13.5-18.0 HEMATOCRIT 43.1 42.0-52.0 MEAN CORPUSCULAR VOLUME 83 78-100 MEAN CORPUSCULAR HEMOGLOBIN 27.4 27.0 -32.0 MEAN CORPUSCULAR HGB CONC. 33.2 32.0- 36.0 RED CELL DISTRIBUTION WIDTH 13.1 11.0 -14.0 PLATELET 198 140-440 MEAN PLATELET VOLUME 10.6 7.4-11.0 NEUTROPHIL % 63.0 45.0-75.0 LYMPHOCYTE % 25.3 20.0-50.0 MONOCYTE % 8.1 2.0-10.0 EOSINOPHIL % 3 0-6 BASOPHIL % 0 0-1 ABSOLUTE NEUTROPHIL COUNT 4.6 1.4-7. 9 AUTOMATED COMPMET 2013-09-08 GLUCOSE 187 74-106 BUN 25 7-18 CREATININE STANDARDIZED 0.85 0.60-1.3 0 ESTIMATED GLOMERULAR >60 >=60 FILTRATION SODIUM 139 136-144 POTASSIUM 4.4 3.7-5.0 CHLORIDE 103 98-108 CARBON DIOXIDE 28 22-32 CALCIUM 9.0 8.5-10.1 TOTAL PROTEIN 7.2 6.5-8.1 ALBUMIN 4.1 3.4-5.0 TOTAL BILIRUBIN 0.6 0.3-1.2 DIRECT BILIRUBIN 0.1 0.0-0.2 ALKALINE PHOSPHATASE 119 50-147 AST 23 15-37 ALT 49 13-78 HEMOGLOBIN A1C 2013-09-08 HEMOGLOBIN A1C 7.8 4.6-6.2 CALCULATED MEAN GLUCOSE 177 LIPID W/ CALCULATED LDL 2013-09-08 CHOLESTEROL 153 0-200 TRIGLYCERIDE 94 0-200 HDL 39 40-60 LDL CALCULATION 95 5-99 CHOL/HDL 3.9 0.0-4.5 PSA-SCREEN 2013-09-08 PROSTATE SPECIFIC ANTIGEN 1.780 0.000- 4.000 SCREEN Occult Blood Random-DIAGNOSTIC 2013-09-08 (NON SCREENING) Occult Blood Random NEGATIVE OCCULT BLOOD UA DIPSTICK ONLY-with CPE/ICC 2013-09-08 COLOR yellow CLARITY SPECIFIC GRAVITY 1.015 GLUCOSE neg BILIRUBIN neg KETONES neg BLOOD neg PH 5.5 PROTEIN 5.5 UROBILINOGEN 0.2 LEUKOCYTES neg NITRITES neg X Shoulder R 2013-08-26 See Below For Report X Hip R 2V 2013-08-26 See Below For Report CPK 2013-08-20 CPK 115 26-308 TROPONIN I 2013-08-20 TROPONIN I 0.00 0.00-0.06 CPK 2013-08-20 CPK 119 26-308 TROPONIN I 2013-08-20 TROPONIN I 0.00 0.00-0.06 GLUCOSE POINT OF CARE 2013-08-20 GLUCOSE 103 74-118 COMMENT1 GLUCOSE POINT OF CARE 2013-08-19 GLUCOSE 132 74-118 COMMENT1 BASEMET 2013-08-19 GLUCOSE 152 74-106 BUN 17 7-18 CREATININE STANDARDIZED 0.74 0.60-1.3 0 ESTIMATED GLOMERULAR >60 >=60 FILTRATION SODIUM 144 136-144 POTASSIUM 3.8 3.7-5.0 CHLORIDE 105 98-108 CARBON DIOXIDE 31 22-32 CALCIUM 8.8 8.5-10.1 CBC WITH AUTO DIFF 2013-08-19 WHITE BLOOD COUNT 7.1 4.0-12.0 RED CELL COUNT 4.9 4.5-6.0 HEMOGLOBIN 13.6 13.5-18.0 HEMATOCRIT 40.1 42.0-52.0 MEAN CORPUSCULAR VOLUME 83 78-100 MEAN CORPUSCULAR HEMOGLOBIN 28.0 27.0 -32.0 MEAN CORPUSCULAR HGB CONC. 33.9 32.0- 36.0 RED CELL DISTRIBUTION WIDTH 13.2 11.0 -14.0 PLATELET 189 140-440 MEAN PLATELET VOLUME 10.0 7.4-11.0 NEUTROPHIL % 52.0 45.0-75.0 LYMPHOCYTE % 34.2 20.0-50.0 MONOCYTE % 9.2 2.0-10.0 EOSINOPHIL % 4 0-6 BASOPHIL % 1 0-1 ABSOLUTE NEUTROPHIL COUNT 3.7 1.4-7. 9 AUTOMATED TROPONIN I 2013-08-19 TROPONIN I 0.00 0.00-0.06 X Chest 1V 2013-08-19 See Below For Report EKG to be done at hospital 2013-08-19 ALT 2013-06-21 ALT 37 78 AST 2013-06-21 AST 28 15-37 HEMOGLOBIN A1C 2013-06-21 HEMOGLOBIN A1C 7.2 4.6-6.2 CALCULATED MEAN GLUCOSE 160 LIPID W/ CALCULATED LDL 2013-06-21 CHOLESTEROL 139 0-200 TRIGLYCERIDE 83 0-200 HDL 37 40-60 LDL CALCULATION 85 5-99 CHOL/HDL 3.8 0.0-4.5 LDL (DIRECT) 2013-04-21 LDL 71 5-99 LIPID PANEL (no LDL) 2013-04-21 CHOLESTEROL 116 0-200 TRIGLYCERIDE 40 0-200 HDL 38 40-60 CHOL/HDL 3.1 0.0-4.5 REFERENCE RANGE NOTE PLEASE NOTE NEW REFERENCE RANGES BEGINNING ON 01/29/2012 DUE TO NEW ANALYZER AND METHODOLOGY COMPMET 2013-01-18 GLUCOSE 94 74-106 BUN 15 7-18 CREATININE STANDARDIZED 0.73 0.60-1.3 0 ESTIMATED GLOMERULAR >60 >=60 FILTRATION SODIUM 143 136-144 POTASSIUM 4.3 3.7-5.0 CHLORIDE 106 98-108 CARBON DIOXIDE 28 22-32 CALCIUM 9.1 8.5-10.1 TOTAL PROTEIN 6.9 6.5-8.1 ALBUMIN 3.8 3.4-5.0 TOTAL BILIRUBIN 0.6 0.3-1.2 DIRECT BILIRUBIN 0.1 0.0-0.2 ALKALINE PHOSPHATASE 108 50-147 AST 26 15-37 ALT 40 1378 HEMOGLOBIN A1C 2013-01-18 HEMOGLOBIN A1C 7.0 4.6-6.2 CALCULATED MEAN GLUCOSE 155 LIPID W/ CALCULATED LDL 2013-01-18 CHOLESTEROL 133 0-200 TRIGLYCERIDE 92 0-200 HDL 42 40-60 LDL CALCULATION 73 5-99 CHOL/HDL 3.2 0.0-4.5 COMPMET 2012-08-06 GLUCOSE 148 74-106 BUN 16 7-18 CREATININE STANDARDIZED 0.72 0.60-1.3 0 ESTIMATED GLOMERULAR >60 >=60 FILTRATION SODIUM 143 136-144 POTASSIUM 3.8 3.7-5.0 CHLORIDE 104 98-108 CARBON DIOXIDE 31 22-32 CALCIUM 9.0 8.5-10.1 TOTAL PROTEIN 7.0 6.5-8.1 ALBUMIN 3.8 3.4-5.0 TOTAL BILIRUBIN 0.5 0.3-1.2 DIRECT BILIRUBIN 0.1 0.0-0.2 ALKALINE PHOSPHATASE 111 50-147 AST 24 15-37 ALT 36 13-78 LIPID W/ CALCULATED LDL 2012-08-06 CHOLESTEROL 130 0-200 TRIGLYCERIDE 158 0-200 HDL 38 40-60 LDL CALCULATION 60 5-99 CHOL/HDL 3.4 0.0-4.5 LIPID W/ CALCULATED LDL 2012-03-09 CHOLESTEROL 143 0-200 TRIGLYCERIDE 73 0-200 HDL 46 40-60 LDL 82 5-99 CHOL/HDL 3.1 0.0-4.5 X ray: Shoulder, left 2012-02-19 BASEMET 2012-01-27 GLUCOSE 130 74-118 BUN 18 8-26 CREATININE STANDARDIZED 1.04 0.30-1.1 7 ESTIMATED GLOMERULAR >60 FILTRATION SODIUM 139 136-144 POTASSIUM 4.5 3.7-5.0 CHLORIDE 108 101-111 CARBON DIOXIDE 25 22-32 CALCIUM 9.4 8.8-10.3 HEMOGLOBIN A1C 2012-01-27 HEMOGLOBIN A1C 6.3 4.6-6.2 CALCULATED MEAN GLUCOSE 138 LIPID W/ CALCULATED LDL 2012-01-27 CHOLESTEROL 135 0-200 TRIGLYCERIDE 77 88-142 HDL 34 32-72 LDL 79 5-99 CHOL/HDL 4.0 0.0-4.5 ALT 2011-07-04 ALT 43 17-63 AST 2011-07-04 AST 27 15-41 BASEMET 2011-07-04 GLUCOSE 176 74-118 BUN 21 8-26 CREATININE STANDARDIZED 0.83 0.30-1.1 7 ESTIMATED GLOMERULAR >60 FILTRATION SODIUM 138 136-144 POTASSIUM 4.0 3.7-5.0 CHLORIDE 104 101-111 CARBON DIOXIDE 28 22-32 CALCIUM 9.3 8.8-10.3 HEMOGLOBIN A1C 2011-07-04 HEMOGLOBIN A1C 7.9 4.6-6.2 CALCULATED MEAN GLUCOSE 177 LIPID W/ CALCULATED LDL 2011-07-04 CHOLESTEROL 144 0-200 TRIGLYCERIDE 59 88-142 HDL 38 32-72 LDL 90 5-99 CHOL/HDL 3.8 0.0-4.5 ALT 2010-12-13 ALT 26 17-63 AST 2010-12-13 AST 22 15-41 BASEMET 2010-12-13 GLUCOSE 98 74-118 BUN 15 8-26 CREATININE STANDARDIZED 0.80 0.30-1.1 7 ESTIMATED GLOMERULAR >60 FILTRATION SODIUM 141 136-144 POTASSIUM 4.2 3.7-5.0 CHLORIDE 104 101-111 CARBON DIOXIDE 29 22-32 CALCIUM 9.9 8.8-10.3 HEMOGLOBIN A1C 2010-12-13 HEMOGLOBIN A1C 6.1 4.6-6.2 CALCULATED MEAN GLUCOSE 133 LIPID W/ CALCULATED LDL 2010-12-13 CHOLESTEROL 124 0-200 TRIGLYCERIDE 129 88-142 HDL 29 32-72 LDL 74 5-99 CHOL/HDL 4.3 0.0-4.5 LIVER FUNCTION TESTS 2010-08-29 TOTAL PROTEIN 6.8 6.5-8.1 ALBUMIN 3.9 3.5-5.0 TOTAL BILIRUBIN 0.5 0.3-1.2 DIRECT BILIRUBIN 0.1 0.1-0.5 ALKALINE PHOSPHATASE 92 38-126 AST 31 15-41 ALT 39 17-63 LIPID W/ CALCULATED LDL 2010-08-29 CHOLESTEROL 129 0-200 TRIGLYCERIDE 54 88-142 HDL 33 32-72 LDL 80 5-99 CHOL/HDL 3.9 0.0-4.5 ALT 2010-08-15 ALT 31 17-63 AST 2010-08-15 AST 27 15-41 BASEMET 2010-08-15 GLUCOSE 144 74-118 BUN 25 8-26 CREATININE STANDARDIZED 0.85 0.30-1.1 7 ESTIMATED GLOMERULAR >60 FILTRATION SODIUM 140 136-144 POTASSIUM 3.8 3.7-5.0 CHLORIDE 104 101-111 CARBON DIOXIDE 29 22-32 CALCIUM 9.2 8.8-10.3 HEMOGLOBIN A1C 2010-08-15 HEMOGLOBIN A1C 5.7 4.6-6.2 CALCULATED MEAN GLUCOSE 124 LIPID W/ CALCULATED LDL 2010-08-15 CHOLESTEROL 118 0-200 TRIGLYCERIDE 91 88-142 HDL 29 32-72 LDL 71 5-99 CHOL/HDL 4.1 0.0-4.5 Cardio:ETT, Exercise Treadmill CPT 81773 CARDIAC REHAB EKG to be done at hospital EKG to be done at hospital X ray: Chest BASEMET 2010-05-29 GLUCOSE 103 74-118 BUN 13 8-26 CREATININE STANDARDIZED 0.83 0.30-1.1 7 ESTIMATED GLOMERULAR >60 FILTRATION SODIUM 141 136-144 POTASSIUM 4.1 3.7-5.0 CHLORIDE 104 101-111 CARBON DIOXIDE 25 22-32 CALCIUM 9.2 8.8-10.3 CBC WITH AUTO DIFF 2010-05-29 WHITE BLOOD COUNT 9.4 4.0-12.0 RED CELL COUNT 4.7 4.5-6.0 HEMOGLOBIN 13.9 13.5-18.0 HEMATOCRIT 40.2 42.0-52.0 MEAN CORPUSCULAR VOLUME 86 78-100 MEAN CORPUSCULAR HEMOGLOBIN 29.9 27.0 -32.0 MEAN CORPUSCULAR HGB CONC. 34.7 32.0- 36.0 RED CELL DISTRIBUTION WIDTH 12.5 11.0 -14.0 PLATELET 175 140-440 MEAN PLATELET VOLUME 8.1 7.4-11.0 NEUTROPHIL % 68.5 45.0-75.0 LYMPHOCYTE % 21.5 20.0-50.0 MONOCYTE % 7.2 2.0-10.0 EOSINOPHIL % 3 0-6 BASOPHIL % 0 0-1 ABSOLUTE NEUTROPHIL COUNT 6.5 1.4-7. 9 AUTOMATED CPK 2010-05-29 CPK 111 49-397 LIPID W/ CALCULATED LDL 2010-05-29 CHOLESTEROL 233 0-200 TRIGLYCERIDE 209 88-142 HDL 31 32-72 CHOL/HDL 7.5 0.0-4.5 TROPONIN I 2010-05-29 TROPONIN I 0.00 0.00-0.05 BASEMET 2010-05-29 GLUCOSE 162 74-118 BUN 14 8-26 CREATININE STANDARDIZED 0.86 0.30-1.1 7 ESTIMATED GLOMERULAR >60 FILTRATION SODIUM 141 136-144 POTASSIUM 4.0 3.7-5.0 CHLORIDE 103 101-111 CARBON DIOXIDE 27 22-32 CALCIUM 9.4 8.8-10.3 CBC WITH AUTO DIFF 2010-05-29 WHITE BLOOD COUNT 7.7 4.0-12.0 RED CELL COUNT 4.9 4.5-6.0 HEMOGLOBIN 14.3 13.5-18.0 HEMATOCRIT 42.1 42.0-52.0 MEAN CORPUSCULAR VOLUME 86 78-100 MEAN CORPUSCULAR HEMOGLOBIN 29.0 27.0 -32.0 MEAN CORPUSCULAR HGB CONC. 33.9 32.0- 36.0 RED CELL DISTRIBUTION WIDTH 12.4 11.0 -14.0 PLATELET 183 140-440 MEAN PLATELET VOLUME 7.8 7.4-11.0 NEUTROPHIL % 59.3 45.0-75.0 LYMPHOCYTE % 27.4 20.0-50.0 MONOCYTE % 9.0 2.0-10.0 EOSINOPHIL % 4 0-6 BASOPHIL % 0 0-1 ABSOLUTE NEUTROPHIL COUNT 4.6 1.4-7. 9 AUTOMATED CPK 2010-05-29 CPK 84 49-397 PT/INR 2010-05-29 PRO TIME 10.1 9.2-11.9 PT-INR 1.0 PT-INR Interp Recommended therapeutic ranges for oral anticoagulant therapy: LEVEL OF THERAPY INDICATIONS TARGET Standard dose Treatment of venous throm PTT 2010-05-29 PARTIAL THROMBOPLASTIN TIME 27.6 23.2 -34.4 TROPONIN I 2010-05-29 TROPONIN I 0.00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
[2022-08-13 19:33] LABS: PSA, Ultrasensitive 113 ng/mL (<= 6.5)
[2022-08-18 12:31] LABS: Testosterone, Total 37 ng/dL (240-950)
== END 2022-08-12 13:18 | disposition home or self-care (01) ==
LOC: LBO 13:18
PROVIDERS: PCP Nurse Practitioner; Visit Provider Nurse Practitioner Family
DX: C61 Malignant neoplasm of prostate (principal); C77.5 Secondary and unspecified malignant neoplasm of intrapelvic lymph nodes
CPT/HCPCS: 36415; 80053; 84153; 84403; 85025

== ENCOUNTER 2022-10-07 09:50 | Inpatient (IN) | payer MEDICARE, MEDICAID, SELFPAY ==
[2022-10-07] VITALS (41 sets, daily range): BP systolic 93–164; BP diastolic 49–84; PULSE 40–96; RESP 14–19; TEMP 37–39.2; O2SAT 92–98
--- NOTE | 2022-10-07 | DI.MRI_ITS ---
Exam(s) MR ABDOMEN WO EXAM: MR ABDOMEN WO CLINICAL HISTORY: elevated bilirubin, r/o choledocolithiasis TECHNIQUE: Multiplanar multisequence MRI was performed. MRCP also performed. COMPARISON: CR XR CHEST 2V PA LATERAL from 10/07/[address] ABDOMEN PELVIS W from 10/07/2022 FINDINGS: VISUALIZED LUNG BASES: No pleural effusions evident. Artifact from sternotomy wires in the midline no deonna. LIVER: There are no discrete focal hepatic lesions. BILIARY: Gallbladder wall is significantly edematous and there is some pericholecystic fluid. Subtle suggestion calculus in the gallbladder neck region described on the CT scan is less evident on the p resent MRI study. Cystic duct is not dilated. CBD diameter is 8 millimeters condyloma minimally pro minent. Some narrowing of the lower CBD is noted but without a meniscus sign to suggest an obvious c alculus at this level. Also no evidence of intraluminal filling defects within the mid-upper CBD. N o obvious dilated intrahepatic ducts evident. PANCREAS: There is no evidence of pancreatic mass nor dilatation of the pancreatic duct. SPLEEN: Spleen size is upper normal. And there are no intrasplenic lesions. ADRENALS: There are no significant adrenal masses. KIDNEYS: There is a benign cyst in the lateral cortex of the right kidney which measures approximatel y 2.5 by 1.6 cm. No other right kidney findings. Left kidney is moderately atrophic.No solid renal masses. ABDOMINAL AORTA: Not enlarged and there is no significant para-aortic adenopathy. ANTERIOR ABDOMINAL WALL/GI: There is symmetrical subcutaneous signal abnormality on both sides of the anterior abdominal wall subcutaneous tissue level at and below the umbilicus level. Probably relate d to injection sites. No truly drainable fluid collection evident at these levels. OSSEOUS: Are multiple lytic and blastic lesions in the vertebral bodies. At the T12 level there is d ehiscence of the posterior cortex with extension of neoplastic tissue into the spinal canal. This co mpresses the region of the distal spinal cord-conus medullaris region. IMPRESSION: 1. Acute cholecystitis, possibly acalculus cholecystitis. No obvious calculus seen within the gallbl adder lumen on the MRI. Recommend ultrasound. The gallbladder wall is uniformly edematous. CBD zora meter is minimally prominent at 8 millimeters. No obvious calculus seen within the CBD. 2. Pancreatic duct is not dilated. There are no peripancreatic fluid collections. 3. Atrophic left kidney. There is a left ureteral stent in place which is better seen on the precedi ng CT scan than on MRI. Right kidney exhibits normal size and contains a benign cyst. 4. Multilevel lytic and blastic lesions in the vertebral bodies. At T12 level there is dehiscence o f the posterior cortex and invasion of the spinal canal at this level. DATA REPOSITORY:
--- NOTE | 2022-10-07 10:16 | ED.GENADUL_ITS ---
Discharge Plan Disposition Patient Disposition: Admit to [facility] Condition: Fair Discharge Details Clinical Impression: Acute cholecystitis, Acute UTI, Elevated LFTs Admit Date/Time: 10/07/22 16:35 Admit Provider: Nishant Mccracken Attending Provider: Nishant Mccracken Primary Care Provider: Jacoby Caal ED Provider: Bijan Carmichael Discharge Data Discharge Date/Time-TO BE ENTERED AT DEPARTURE: 10/07/22 17:23 Medical Decision Making Patient presenting to the emergency department for chief complaint of fever with some confusion noted this morning. Patient was sent to the emergency department by the cancer center. Patient is currently undergoing chemotherapy and radiation along with steroid therapy for prostate cancer. Patient was due to receive treatment today but due to reported fever patient sent to emergency department for further evaluation. Family member states patient was confused and felt cool this morning. Did use a forehead scanning thermometer with temperature reading of 106. After this family member gave acetaminophen which did seem to help resolve patient's symptoms. Patient's only complaint is some mild lower abdominal discomfort but otherwise denies cough, congestion, sore throat, headache, stiff neck, rash lesions, diarrhea. Does have difficulty with urination secondary to prostate cancer at baseline. Patient also has significant past medical history of CAD with stents and cardiac bypass surgery, diabetes, hypertension. Physical exam is overall unremarkable and nondiagnostic. Review of vital signs shows pulse of 95 otherwise afebrile here with no hypotension noted no respiratory distress, no hypoxia. We will plan on checking labs including lactate, viral pathogen panel, chest x-ray, blood cultures, urinalysis and urine cultures. Reviewed patient's labs that show a stable but chronic anemia with hemoglobin of 12.7 slightly low lymphocytes at 0.47, lactate of 2.8, sodium 135, creatinine 1.6 with a GFR 45, glucose is 203, there is significant elevation of LFTs with total bilirubin of 3.2, AST of 142, ALT of 147, alk phos of 519 with albumin of 3.3. These are all elevated significantly higher than previous readings. Still pending urinalysis. Reviewed chest x-ray that does show nodular infiltrate in right lateral lung. Given no complaint of respiratory symptoms I doubt this is bacterial infiltrate but question possible further metastasis to the lungs secondary to prostate cancer with known bony metastasis. Patient still complaining of abdominal pain. Abdomen was palpated and did show some right upper quadrant tenderness. Due to this I do feel that CT imaging with contrast is warranted even with lower GFR. Patient was informed that he should hold his metformin due to CT contrast. Pending CT imaging urinalysis did return and does show findings concerning for infection so we will treat patient with Rocephin. CT imaging did show acute cholecystitis which does concern me due to elevation of all of his LFTs. CT also did show bony metastasis to the spine with slight worsening but I do not feel this is emergent at this point. Did consult general surgeon Dr. Mccracken for discussion of acute cholecystitis which he stated he would come and evaluate the patient. After evaluation of patient surgeon ordered MRI of the abdomen and admitted patient for further treatment and observation. Medical Records Medical records reviewed: Yes I reviewed the patient's medical records. Imaging Data Radiologic Study: Attestation: I personally reviewed and interpreted this imaging study as follows: Imaging: X-Ray Radiologist's impression: Exam(s) XR CHEST 2V PA LATERAL EXAM: XR CHEST 2V PA LATERAL CLINICAL HISTORY: fever. TECHNIQUE: 2D digital imaging was performed. COMPARISON: No exams were available for comparison FINDINGS: 2 views: There is sternotomy wires. Heart size is normal. The mediastinum is not widened. There is an area of nodular infiltrate in the lateral right lung noted. Mild increased markings towards the lung bases bilaterally. No pleural effusions. Accessory azygos lobe incidentally noted on the right side. On the lateral view there is a pigtail drainage catheter noted which is probably in 1 of the ureters. IMPRESSION: Nodular infiltrate lateral right lung measuring approximately 1.5 x 1.0 cm. Other increased markings both lungs. No pleural effusions. Follow-up to resolution recommended. There are sternotomy wires. There is no evidence of pulmonary edema. Pigtail catheter partially included in the field of view on the lateral view which may be within 1 of the ureters. Radiologic Study #2: Attestation: I personally reviewed and interpreted this imaging study as follows: Imaging: CT Scan Radiologist's impression: Exam(s) a CT:CT abdomen & pelvis w Exam(s) CT ABDOMEN PELVIS W EXAM: CT ABDOMEN PELVIS W CLINICAL HISTORY: abd stepan ruq. TECHNIQUE: Imaging Protocol: Axial computed tomography images with coronal and sagittal reformatted images were created and reviewed CONTRAST MATERIAL: Intravenous: Omnipaque-350 100cc Oral: None COMPARISON: CR XR CHEST 2V PA LATERAL from 10/07/2022 FINDINGS: VISUALIZED LUNG BASES: Sternotomy wires are noted. Increased markings both lung bases but no pleural effusions. x ABDOMEN: There is no ascites. LIVER: There are no focal hepatic lesions evident. No dilated intrahepatic ducts. GALLBLADDER/BILIARY: Is edematous and there is mild pericholecystic fluid. Subtle density in the gallbladder neck region is noted measuring 8 millimeters, possibly a noncalcified calculus at this level. CBD diameter is upper normal- minimally prominent, measuring 8 millimeters.. Subtle suggestion of possible density at junction of the CBD and duodenal wall. PANCREAS: No intrinsic pancreatic mass. Pancreatic duct is not dilated. SPLEEN: Spleen is not enlarged. No obvious intrasplenic lesions. Splenic and portal veins are patent. ADRENALS: There are no significant adrenal masses. KIDNEYS:There is a benign cyst in the lateral cortex of the right kidney measuring 2.5 x 1.5 cm. No other focal findings in the right kidney. The left kidney is somewhat atrophic and there is a double pigtail left ureteral stent in place extending from the left renal pelvis down into the urinary bladder lumen. The ureter is not dilated around the stent and there are no obvious calculi seen in the somewhat atrophic left kidney and ureter. Mild perinephric streaking around the left kidney is noted.. ABDOMINAL AORTA: Heavily calcified but not enlarged. Common iliac arteries are also heavily calcified but not enlarged. External iliac arteries not enlarged. LYMPH NODES:There is no retroperitoneal nor paraaortic adenopathy. ABDOMINAL WALL: Fat containing left inguinal hernia noted. Calcifications are noted in the lower inguinal canal left side, these measuring up to 1.4 by 0.9 cm. Similar findings not seen on the right side. GI: There is no evidence of bowel obstruction, free air, nor abscess. There is symmetrical subcutaneous bruising over both sides of the anterior abdominal wall, possibly related to injection sites. There is no drainable abscess. No air-gas in the subcutaneous fat. PELVIS: GI: No evidence of appendicitis.No evidence of sigmoid diverticulitis. LYMPH NODES: There is no intrapelvic nor inguinal adenopathy. REPRODUCTIVE: Prostate size upper normal. URINARY BLADDER: Uniformly thickened wall. Ureteral double-pigtail stent in place. Bladder is not distended. OSSEOUS: z in addition to healed fractures in the right hemipelvis there are concerning blastic lesions in the visualized is vertebral bodies as well as with in both sides of the pelvis. Also lytic involvement 3 of T11 and T12 with fractures of these levels which are pathologic. Dehiscence of the posterior wall of T12 vertebral body with extension of tumor into the spinal canal. IMPRESSION: 1. Gallbladder is edematous consistent with acute cholecystitis. There is a subtle noncalcified density in the gallbladder neck. No other is subtle density is seen in the lower CBD at its junction with the duodenal wall. CBD diameter above this level is 8 millimeters, minimally prominent. 2. There is a stent in the left ureter in satisfactory position. Left kidney is moderately atrophic. Right kidney exhibits normal size. It contains a benign cortical cyst measuring 2.5 cm. No solid renal masses. 3. There are multiple concerning blastic as well some lytic bone lesions. There is also dehiscence of the posterior cortex with extension of tumor into the spinal canal at T12 level. Also significant lytic involvement of T11. Both of these vertebral bodies exhibit height loss. Lab Data Lab results reviewed: Yes I reviewed the patient's lab results. HPI General Mode of arrival: ambulatory . Date/Time Provider Initiated Documentation: 10/07/22 09:54 . Limitations to Documentation: no limitations . Information obtained by: patient, family and RN notes reviewed . History of Present Illness 72 year old M presents to the emergency department with the chief complaint of Fever, described as mild, with intensity rated at 3. Quality is described as aching, and is localized to the abdomen (Lower). Patient reports no radiation. Patient started experiencing this day(s) (2) and it has been constant. No relieving factors improve symptom(s), No exacerbating factors reported . Patient notes confusion and fever/chills; denies loss of appetite and malaise. Patient did receive the following treatments prior to arrival, other (Acetaminophen) Related Data Home Medications Medication Instructions Recorded Confirmed abiraterone 250 mg tablet 1,000 mg PO DAILY 10/07/22 10/07/22 atorvastatin 80 mg tablet 80 mg PO DAILY 10/07/22 10/07/22 metformin 750 mg tablet,extended 750 mg PO DAILY 10/07/22 10/07/22 release 24 hr metoprolol tartrate 25 mg tablet 25 mg PO BID 10/07/22 10/07/22 prednisone 5 mg tablet 5 mg PO DAILY 10/07/22 10/07/22 tamsulosin 0.4 mg capsule 0.4 mg PO DAILY 10/07/22 10/07/22 hydromorphone 2 mg tablet 2 mg PO Q6H PRN PRN 10/08/22 10/08/22 ciprofloxacin HCl 500 mg tablet 500 mg PO Q12H cholecystitis #10 10/09/22 (Cipro) tabs metronidazole 500 mg tablet 500 mg PO Q8H cholecystitis #15 10/09/22 tabs tramadol 50 mg tablet 50 mg PO Q8H PRN pain #12 tabs 10/09/22 Previous Rx's Medication Instructions Recorded ciprofloxacin HCl 500 mg tablet 500 mg PO Q12H cholecystitis #10 10/09/22 (Cipro) tabs metronidazole 500 mg tablet 500 mg PO Q8H cholecystitis #15 10/09/22 tabs tramadol 50 mg tablet 50 mg PO Q8H PRN pain #12 tabs 10/09/22 Allergies Allergy/AdvReac Type Severity Reaction Status Date / Time No Known Allergies Allergy Unverified 10/07/22 09:59 General Stated Complaint: Fever YONI: 3 Review of Systems Constitutional Constitutional: Reports as per HPI, Denies chills, Reports fever(s), Denies he adache(s), Reports malaise, Denies poor appetite and Denies weakness Eyes Eyes: Reports other (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) ENT Ears, Nose, Mouth, and Throat: Denies headache(s), Denies nasal congestion, Denies neck pain and Denies sore throat Cardiovascular Cardiovascular: Denies chest pain, Denies syncope and Denies dyspnea Respiratory Respiratory: Denies chest congestion, Denies cough and Denies dyspnea Gastrointestinal Gastrointestinal: Reports abdominal pain, Denies diarrhea, Denies nausea and Denies vomiting Genitourinary Genitourinary: Reports difficulty urinating Musculoskeletal Musculoskeletal: Denies myalgias and Denies neck pain Integumentary/Breasts Skin/Breast: Denies rash Neurologic Neurologic: Denies abnormal speech, Reports confusion, Denies syncope, Denies headache(s), Denies localized weakness and Denies weakness Psychiatric Psychiatric: Reports confusion PFSH All Active Problems (Updated 10/10/22 @ 00:03 by ANGEL CAMPOVERDE) Type 2 diabetes mellitus with other specified complication (Acute) Palliative care patient (Acute) Cancer related pain (Acute) Prostate cancer metastatic to bone (Acute) Acute kidney injury (Acute) Acute cholecystitis (Acute) Elevated LFTs (Acute) Medical History (Updated 10/10/22 @ 00:03 by ANGEL CAMPOVERDE) 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 Social History Smoking/Tobacco Use Status: Former Tobacco Use Smoking risk assessment performed?: Yes Alcohol Intake: former Drug use: Never Substance use type: does not use Do you feel safe at home: Yes Do you feel safe in your relationship?: Yes Exam Const General: cooperative Orientation: alert, awake and oriented x3 HENMT Head: normal to inspection, normocephalic and atraumatic Ears: hearing grossly normal bilaterally General nose exam: external nose normal Face and sinus: no erythema Mouth: oral mucosae normal, no drooling, no muffled voice and no trismus Throat: posterior oropharynx normal Neck Neck: normal visual inspection, full ROM, no lymphadenopathy, no meningeal signs, trachea midline and supple Resp Effort & Inspection: normal respiratory effort and able to speak in complete sentences Auscultation: clear to auscultation bilaterally Cardio Rate: regular rate Rhythm: regular rhythm Heart Sounds: S1 normal and S2 normal GI Inspection: normal to inspection Palpation: soft, not firm, no guarding, no masses, no pulsatile masses, not rigid, no splenomegaly and tender in the RUQ Auscultation: normal bowel sounds Back/Spine/Pelvis Back: no CVA tenderness Skin General skin exam: no rashes or lesions noted and dry skin (warm) Neuro General: patient alert, patient awake, patient oriented x3, gait normal and moves all extremities Cognition: normal cognition Speech: speech normal Course Vital Signs Vital signs: Vital Signs Temperature 37.2 C 10/07/22 09:53 Pulse 95 H 10/07/22 09:53 Respiratory Rate 18 10/07/22 09:53 Blood Pressure 125/74 10/07/22 09:53 Pulse Oximetry 98 10/07/22 09:53 Temperature 37.2 C 10/07/22 09:53 Temperature Source Oral 10/07/22 09:53 Pulse 95 H 10/07/22 09:53 Respiratory Rate 18 10/07/22 09:53 Respiratory Effort Non-Labored 10/07/22 09:57 Blood Pressure 125/74 10/07/22 09:53 Blood Pressure Position Sitting 10/07/22 09:53 Pulse Oximetry 98 10/07/22 09:53 Oxygen Delivery Method Room Air 10/07/22 09:53 Oxygen Flow Rate 0 10/07/22 09:53 Pain Level 2 10/07/22 09:53 Lab/Test Results Lab/Test Results: 10/07/22 10:04 Urine - Clean Catch Urine Culture - Pending 10/07/22 10:00 Blood Blood Culture - Pending 10/07/22 10:00 Blood Blood Culture - Pending
[2022-10-07 10:36] LABS: Abs Immature Grans 0.02 10^3/uL (0.0-0.06); Absolute Basophil Count 0.02 10^3/uL (0.0-0.2); Absolute Lymphocyte Count 0.47 10^3/uL (1.2-3.4); Absolute Monocyte Count 0.28 10^3/uL (0.1-0.8); Absolute Neutrophil Count 3.45 10^3/uL (1.2-6.7); Basophils % 0.5; Eosinophils % 4.5; HCT 38.8 % (40.0-50.0); HGB 12.7 g/dL (13.5-17.5); Immature Grans % 0.5; Lactate 2.8 mmol/L (0.6-1.4); Lymphocytes % 10.6; MCH 26.9 pg (27.0-33.0); MCHC 32.7 % (32.0-36.0); MCV 82 fL (80-95); MPV 9.2 fL (8.0-11.0); Monocytes % 6.3; Neutrophils % 77.6; Platelet Count 109 10^3/uL (130-400); RBC 4.72 10^6/uL (4.36-5.78); RDW 14.7 % (11.8-14.1); WBC 4.44 10^3/uL (4.4-10.8)
[2022-10-07 10:51] LABS: ALT 147 U/L (16-63); AST 142 U/L (15-37); Albumin 3.3 g/dL (3.4-5.0); Alkaline Phosphatase 519 U/L (46-116); Anion Gap 8.7 mmol/L (3-11); BUN 16 mg/dL (7-18); Bilirubin, Total 3.2 mg/dL (0.2-1.0); CO2 26.3 mmol/L (21.0-32.0); CREATININE 1.6 mg/dL (0.70-1.30); Calcium 9.3 mg/dL (8.5-10.1); Chloride 100 mmol/L (98-107); Glucose 203 mg/dL (74-106); Magnesium 1.8 mg/dL (1.8-2.4); Potassium 3.5 mmol/L (3.5-5.1); Sodium 135 mmol/L (136-145); Total Protein 7.6 g/dL (6.4-8.2)
[2022-10-07] MEDS: Normal Saline 500 ML IV (10:59)
[2022-10-07 11:02] LABS: COVID-19 PCR Negative (Negative); Influenza A PCR Negative (Negative); Influenza B PCR Negative (Negative); RSV PCR Negative (Negative)
[2022-10-07 11:03] LABS: Source Nasopharynx
--- NOTE | 2022-10-07 12:45 | DI.CT_ITS ---
Exam(s) CT ABDOMEN PELVIS W EXAM: CT ABDOMEN PELVIS W CLINICAL HISTORY: abd stepan ruq. TECHNIQUE: Imaging Protocol: Axial computed tomography images with coronal and sagittal reformatted images were created and reviewed CONTRAST MATERIAL: Intravenous: Omnipaque-350 100cc Oral: None COMPARISON: CR XR CHEST 2V PA LATERAL from 10/07/2022 FINDINGS: VISUALIZED LUNG BASES: Sternotomy wires are noted. Increased markings both lung bases but no pleural effusions. x ABDOMEN: There is no ascites. LIVER: There are no focal hepatic lesions evident. No dilated intrahepatic ducts. GALLBLADDER/BILIARY: Is edematous and there is mild pericholecystic fluid. Subtle density in the gal lbladder neck region is noted measuring 8 millimeters, possibly a noncalcified calculus at this level . CBD diameter is upper normal-minimally prominent, measuring 8 millimeters.. Subtle suggestion of possible density at junction of the CBD and duodenal wall. PANCREAS: No intrinsic pancreatic mass. Pancreatic duct is not dilated. SPLEEN: Spleen is not enlarged. No obvious intrasplenic lesions. Splenic and portal veins are paten t. ADRENALS: There are no significant adrenal masses. KIDNEYS:There is a benign cyst in the lateral cortex of the right kidney measuring 2.5 x 1.5 cm. No other focal findings in the right kidney. The left kidney is somewhat atrophic and there is a double pigtail left ureteral stent in place extending from the left renal pelvis down into the urinary blad negin lumen. The ureter is not dilated around the stent and there are no obvious calculi seen in the s omewhat atrophic left kidney and ureter. Mild perinephric streaking around the left kidney is noted. . ABDOMINAL AORTA: Heavily calcified but not enlarged. Common iliac arteries are also heavily calcifie d but not enlarged. External iliac arteries not enlarged. LYMPH NODES:There is no retroperitoneal nor paraaortic adenopathy. ABDOMINAL WALL: Fat containing left inguinal hernia noted. Calcifications are noted in the lower ing uinal canal left side, these measuring up to 1.4 by 0.9 cm. Similar findings not seen on the right s josé. GI: There is no evidence of bowel obstruction, free air, nor abscess. There is symmetrical subcutaneous bruising over both sides of the anterior abdominal wall, possibly r elated to injection sites. There is no drainable abscess. No air-gas in the subcutaneous fat. PELVIS: GI: No evidence of appendicitis.No evidence of sigmoid diverticulitis. LYMPH NODES: There is no intrapelvic nor inguinal adenopathy. REPRODUCTIVE: Prostate size upper normal. URINARY BLADDER: Uniformly thickened wall. Ureteral double-pigtail stent in place. Bladder is not d istended. OSSEOUS: z in addition to healed fractures in the right hemipelvis there are concerning blastic lesio ns in the visualized is vertebral bodies as well as within both sides of the pelvis. Also lytic invo lvement 3 of T11 and T12 with fractures of these levels which are pathologic. Dehiscence of the post erior wall of T12 vertebral body with extension of tumor into the spinal canal. IMPRESSION: 1. Gallbladder is edematous consistent with acute cholecystitis. There is a subtle noncalcified dens ity in the gallbladder neck. No other is subtle density is seen in the lower CBD at its junction wit h the duodenal wall. CBD diameter above this level is 8 millimeters, minimally prominent. 2. There is a stent in the left ureter in satisfactory position. Left kidney is moderately atrophic. Right kidney exhibits normal size. It contains a benign cortical cyst measuring 2.5 cm. No solid renal masses. 3. There are multiple concerning blastic as well some lytic bone lesions. There is also dehiscence o f the posterior cortex with extension of tumor into the spinal canal at T12 level. Also significant lytic involvement of T11. Both of these vertebral bodies exhibit height loss. Findings discussed with ER provider. RADIATION DOSE DELIVERED: 731.52mGy.cm Total DLP DATA REPOSITORY: All CT scans at this facility are submitted to the National Radiology Data Registry (NRDR) Dose Index Registry (DIR) with the [employer] ([employer]). RADIATION OPTIMIZATION: All CT scans at this facility use at least one of these dose optimization te chniques: automated exposure control; mA and/or kV adjustment per patient size (includes targeted exa ms where dose is matched to clinical indication); or iterative reconstruction.
[2022-10-07 13:36] LABS: Bilirubin Small (Negative); Blood Moderate (Negative); Clarity Cloudy (Clear); Glucose Negative (Negative); Ketones Negative (Negative); Leukocyte Esterase Large (Negative); Nitrite Positive (Negative); Specific Gravity 1.015 (1.005-1.025)
[2022-10-07] MEDS: Omnipaque 350 MG/ML 100 ML BTL IJ (13:56)
[2022-10-07] MEDS: Normal Saline - Diluent 50 ML VIAL IJ (13:57)
[2022-10-07 14:14] LABS: Bacteria Many HPF (Negative); C & S Indicated? C&S Done As Ordered; Casts Negative LPF (Negative); Crystals Negative HPF (Negative); Epithelial Cells Negative HPF (Negative); Mucus Negative (Negative); WBC >50 HPF (0-5)
[2022-10-07] MEDS: Normal Saline Flush 10 ML SYR IVP ×3 (14:46→20:17)
[2022-10-07] MEDS: cefTRIAXone 1 GM/50 ML BAG IVPB (14:46)
--- NOTE | 2022-10-07 15:14 | W.PM.HP.N ---
Date of service: 10/07/22 Time of Service: 15:15 Assessment and Plan Assessment and plan (1) Acute cholecystitis: Status: Acute Assessment and plan: In light of the elevated bilirubin, and what appears to be mild dilatation of the biliary tree, I will check an MRCP to rule out choledocholithiasis. If that is negative, the most reasonable course here is a short trial of nonoperative management with broad-spectrum antibiotics, based on his comorbidities, and slightly increased risk of perioperative complications. Percutaneous cholecystostomy tube will be another option if his symptoms do not improve over the next 24 hours. History of Present Illness History of Present Illness Chief Complaint: Fevers Narrative: Bebo is a 72-year-old male currently undergoing treatment for metastatic prostate cancer. Although the exact treatment for his prostate cancer is unclear to me at this time, it sounds like he is treated with at least 5 mg of prednisone, as well as a monthly infusion of some type of immune O for chemotherapy. He was scheduled to undergo infusion today, but was referred to the emergency department because of fevers. His family tells me that he has been experiencing general feeling of illness over the past few days. Other than that, he did not have any specific complaints. While in the emergency department, he was found to have a mild lactic acidosis, elevated serum creatinine, and elevation of liver function tests including total bilirubin. He underwent a CAT scan of the abdomen and pelvis that showed some inflammation around the gallbladder consistent with acute cholecystitis. Review of Systems Constitutional Constitutional: Reports fatigue, Reports fever(s) and Reports poor appetite Eyes Eyes: Reports system reviewed and no additional complaints, except as documented ENT Ears, Nose, Mouth, and Throat: Reports system reviewed and no additional complaints, except as documented Cardiovascular Cardiovascular: Reports system reviewed and no additional complaints, except as documented and Denies dyspnea Respiratory Respiratory: Denies chest congestion, Denies cough and Denies dyspnea Gastrointestinal Gastrointestinal: Denies abdominal pain, Reports cramping, Denies heartburn, Denies diarrhea, Denies nausea and Denies vomiting Musculoskeletal Musculoskeletal: Reports system reviewed and no additional complaints, except as documented Neurologic Neurologic: Reports system reviewed and no additional complaints, except as documented Psychiatric Psychiatric: Reports system reviewed and no additional complaints, except as documented Endocrine Endocrine: Reports fatigue Hematologic/Lymphatic Hematologic/Lymphatic: Denies easy bleeding and Denies easy bruising PFSH All Active Problems Acute cholecystitis (Acute) Acute UTI (Acute) Elevated LFTs (Acute) Social History Smoking/Tobacco Use Status: Former Tobacco Use Smoking risk assessment performed?: Yes Alcohol Intake: former Drug use: Never Substance use type: does not use Do you feel safe at home: Yes Do you feel safe in your relationship?: Yes Meds Allergies and Home Medications Allergies Allergy/AdvReac Type Severity Reaction Status Date / Time No Known Allergies Allergy Unverified 10/07/22 09:59 Home Medications Medication Instructions Recorded Confirmed Type abiraterone 250 mg tablet 1,000 mg PO DAILY 10/07/22 10/07/22 History atorvastatin 80 mg tablet 80 mg PO DAILY 10/07/22 10/07/22 History metformin 750 mg tablet,extended 750 mg PO DAILY 10/07/22 10/07/22 History release 24 hr metoprolol tartrate 25 mg tablet 25 mg PO BID 10/07/22 10/07/22 History prednisone 5 mg tablet 5 mg PO DAILY 10/07/22 10/07/22 History tamsulosin 0.4 mg capsule 0.4 mg PO DAILY 10/07/22 10/07/22 History Exam GI Inspection: normal to inspection and non-distended Palpation: not firm, no guarding and nontender Percussion: normal to percussion Auscultation: normal bowel sounds Results Labs Result diagrams: 10/08/22 06:00 10/08/22 06:00 Labs: Laboratory Results - last 24 hr 10/07/22 10/07/22 10/07/22 10:17 10:24 10:24 WBC RBC Hgb Hct MCV MCH MCHC RDW Plt Count MPV Immature Gran % Neutrophils % Lymphocytes % Monocytes % Eosinophils % Basophils % Nucleated RBC % Absolute Neutrophils Absolute Lymphocytes Absolute Monocytes Absolute Eosinophils Absolute Basophils VBG Lactate 2.8 H* Sodium 135 L Potassium 3.5 Chloride 100 Carbon Dioxide 26.3 Anion Gap 8.7 BUN 16 Creatinine 1.6 H Est GFR (CKD-EPI 2020) 45.50 Glucose 203 H Calcium 9.3 Magnesium 1.8 Total Bilirubin 3.2 H AST 142 H ALT 147 H Alkaline Phosphatase 519 H Total Protein 7.6 Albumin 3.3 L Urine Color Urine Clarity Urine pH Ur Specific [place] Urine Protein Urine Ketones Urine Blood Urine Nitrite Urine Bilirubin Urine Urobilinogen Ur Leukocyte Esterase Urine RBC Urine WBC Ur Epithelial Cells Urine Crystals Urine Bacteria Urine Casts Urine Mucus Ur Culture Indicated? Urine Glucose COVID-19 Source Nasopharynx SARS-CoV-2 (PCR) Negative Influenza Type A (PCR) Negative Influenza Type B (PCR) Negative RSV (PCR) Negative 10/07/22 10/07/22 10:24 12:20 WBC 4.44 RBC 4.72 Hgb 12.7 L Hct 38.8 L MCV 82 MCH 26.9 L MCHC 32.7 RDW 14.7 H Plt Count 109 L MPV 9.2 Immature Gran % 0.5 Neutrophils % 77.6 Lymphocytes % 10.6 Monocytes % 6.3 Eosinophils % 4.5 Basophils % 0.5 Nucleated RBC % 0.0 Absolute Neutrophils 3.45 Absolute Lymphocytes 0.47 L Absolute Monocytes 0.28 Absolute Eosinophils 0.20 Absolute Basophils 0.02 VBG Lactate Sodium Potassium Chloride Carbon Dioxide Anion Gap BUN Creatinine Est GFR (CKD-EPI 2020) Glucose Calcium Magnesium Total Bilirubin AST ALT Alkaline Phosphatase Total Protein Albumin Urine Color Yellow Urine Clarity Cloudy Urine pH 7.0 Ur Specific [place] 1.015 Urine Protein 30 H Urine Ketones Negative Urine Blood Moderate H Urine Nitrite Positive H Urine Bilirubin Small H Urine Urobilinogen 2.0 H Ur Leukocyte Esterase Large H Urine RBC 5-10 H Urine WBC >50 H Ur Epithelial Cells Negative Urine Crystals Negative Urine Bacteria Many Urine Casts Negative Urine Mucus Negative Ur Culture Indicated? C&S Done As Ordered Urine Glucose Negative COVID-19 Source SARS-CoV-2 (PCR) Influenza Type A (PCR) Influenza Type B (PCR) RSV (PCR) Last Vital Signs Temp 98.9 F 10/07/22 13:33 Pulse 80 10/07/22 13:31 Resp 19 10/07/22 12:42 BP 113/65 10/07/22 13:31 Pulse Ox 96 10/07/22 13:32 Time Spent Time spent with Patient: 40-54 minutes Time was spent: preparing to see the patient(eg.review tests), ordering medications,tests, procedures and indepentently interpreting results
[2022-10-07] MEDS: Heparin 5,000 UNITS/ML VIAL 5000 UNITS SC (18:37)
[2022-10-07] MEDS: ACETAMINOPHEN 1,000 MG/100 ML BTL 400 MG IVPB (18:38)
[2022-10-07] MEDS: Lactated Ringers 1,000 ML 75 ML IV (18:39)
[2022-10-07] MEDS: Normal Saline 500 ML 30 ML IV (19:00)
[2022-10-07 20:10] LABS: Abs Immature Grans 0.02 10^3/uL (0.0-0.06); Absolute Basophil Count 0.02 10^3/uL (0.0-0.2); Absolute Eosinophil Count 0.12 10^3/uL (0.0-0.7); Absolute Lymphocyte Count 0.47 10^3/uL (1.2-3.4); Absolute Monocyte Count 0.25 10^3/uL (0.1-0.8); Absolute Neutrophil Count 1.75 10^3/uL (1.2-6.7); Basophils % 0.8; Eosinophils % 4.6; HCT 34.4 % (40.0-50.0); HGB 11.1 g/dL (13.5-17.5); Immature Grans % 0.8; Lymphocytes % 17.9; MCH 26.4 pg (27.0-33.0); MCHC 32.3 % (32.0-36.0); MCV 82 fL (80-95); MPV 9.2 fL (8.0-11.0); Monocytes % 9.5; Neutrophils % 66.4; RBC 4.21 10^6/uL (4.36-5.78); RDW 14.7 % (11.8-14.1); WBC 2.63 10^3/uL (4.4-10.8)
[2022-10-07] MEDS: Insulin Aspart 300 UNITS/3 ML PEN SC (20:10)
[2022-10-07] MEDS: Metoprolol 25 MG TAB PO (20:11)
[2022-10-07] MEDS: HYDROmorphone 2 MG/ML VIAL 0.5 MG IVP (20:16)
[2022-10-07] MEDS: PIPERACILLIN/TAZO 2.25 GM in Normal Saline 50 ML IVPB (20:16)
[2022-10-07 21:20] LABS: Platelet Count 85 10^3/uL (130-400)
[2022-10-08] MEDS: PIPERACILLIN/TAZO 2.25 GM in Normal Saline 50 ML IVPB ×3 (00:38→18:34)
[2022-10-08] MEDS: Normal Saline Flush 10 ML SYR IVP ×4 (00:39→17:41)
[2022-10-08 00:44] VITALS: BP 100/64; PULSE 84; RESP 16; TEMP 36.5; O2SAT 97
[2022-10-08] MEDS: ACETAMINOPHEN 1,000 MG/100 ML BTL 400 MG IVPB ×3 (01:21→17:32)
[2022-10-08] MEDS: Lactated Ringers 1,000 ML 75 ML IV ×2 (06:11→16:31)
[2022-10-08 06:29] LABS: ALT 145 U/L (16-63); AST 124 U/L (15-37); Albumin 2.4 g/dL (3.4-5.0); Alkaline Phosphatase 361 U/L (46-116); Anion Gap 8.9 mmol/L (3-11); BUN 16 mg/dL (7-18); Bilirubin, Total 3.8 mg/dL (0.2-1.0); CO2 27.1 mmol/L (21.0-32.0); CREATININE 1.7 mg/dL (0.70-1.30); Calcium 8.3 mg/dL (8.5-10.1); Chloride 107 mmol/L (98-107); Glucose 116 mg/dL (74-106); Lipase 15 U/L (16-77); Potassium 3.1 mmol/L (3.5-5.1); Sodium 143 mmol/L (136-145); Total Protein 5.7 g/dL (6.4-8.2)
[2022-10-08 06:47] LABS: HCT 33.3 % (40.0-50.0); MCH 26.8 pg (27.0-33.0); MCV 81 fL (80-95); MPV 9.6 fL (8.0-11.0); Platelet Count 76 10^3/uL (130-400); RDW 15.2 % (11.8-14.1); RDW-SD 44.3 fL; WBC 2.54 10^3/uL (4.4-10.8)
[2022-10-08 07:09] VITALS: BP 108/67; PULSE 60; RESP 16; TEMP 36.1; O2SAT 98
--- NOTE | 2022-10-08 08:07 | W.PM.PROGNOT ---
Date of Service Date of service: 10/08/22 Time of Service: 08:07 Assessment and Plan Assessment and plan (1) Acute cholecystitis: Status: Acute Assessment and plan: MRCP yesterday shows no evidence of choledocholithiasis. In fact, there is really no signs of cholelithiasis as well. In that regard, this seems most consistent with a calculus cholecystitis. With his thrombocytopenia, and ongoing elevation of serum bilirubin and acute kidney injury, I think at this point the safest course of action for percutaneous cholecystostomy tube. I have been in touch with [facility] regarding abdominal and back drainage procedure. Await further input. (2) Acute kidney injury: Status: Acute Assessment and plan: Continue with fluid resuscitation, repeat serum creatinine tomorrow Subjective Subjective Interval history since last seen: Bebo says he feels a little better this morning. He does not take. He denies pain. Exam GI Inspection: normal to inspection Palpation: soft, no guarding and nontender Percussion: normal to percussion Auscultation: normal bowel sounds Objective Last Vital Signs Temp 97.0 F L 10/08/22 07:09 Pulse 60 10/08/22 07:09 Resp 16 10/08/22 07:09 BP 108/67 10/08/22 07:09 Pulse Ox 98 10/08/22 07:09 Laboratory Results - last 24 hr 10/07/22 10/07/22 10/07/22 10:17 10:24 10:24 WBC RBC Hgb Hct MCV MCH MCHC RDW Plt Count MPV Immature Gran % Neutrophils % Lymphocytes % Monocytes % Eosinophils % Basophils % Nucleated RBC % Absolute Neutrophils Absolute Lymphocytes Absolute Monocytes Absolute Eosinophils Absolute Basophils VBG Lactate 2.8 H* Sodium 135 L Potassium 3.5 Chloride 100 Carbon Dioxide 26.3 Anion Gap 8.7 BUN 16 Creatinine 1.6 H Est GFR (CKD-EPI 2020) 45.50 Glucose 203 H Calcium 9.3 Magnesium 1.8 Total Bilirubin 3.2 H AST 142 H ALT 147 H Alkaline Phosphatase 519 H Total Protein 7.6 Albumin 3.3 L Lipase Urine Color Urine Clarity Urine pH Ur Specific [place] Urine Protein Urine Ketones Urine Blood Urine Nitrite Urine Bilirubin Urine Urobilinogen Ur Leukocyte Esterase Urine RBC Urine WBC Ur Epithelial Cells Urine Crystals Urine Bacteria Urine Casts Urine Mucus Ur Culture Indicated? Urine Glucose COVID-19 Source Nasopharynx SARS-CoV-2 (PCR) Negative Influenza Type A (PCR) Negative Influenza Type B (PCR) Negative RSV (PCR) Negative 10/07/22 10/07/22 10/07/22 10:24 12:20 20:02 WBC 4.44 2.63 L RBC 4.72 4.21 L Hgb 12.7 L 11.1 L Hct 38.8 L 34.4 L MCV 82 82 MCH 26.9 L 26.4 L MCHC 32.7 32.3 RDW 14.7 H 14.7 H Plt Count 109 L 85 L MPV 9.2 9.2 Immature Gran % 0.5 0.8 Neutrophils % 77.6 66.4 Lymphocytes % 10.6 17.9 Monocytes % 6.3 9.5 Eosinophils % 4.5 4.6 Basophils % 0.5 0.8 Nucleated RBC % 0.0 0.0 Absolute Neutrophils 3.45 1.75 Absolute Lymphocytes 0.47 L 0.47 L Absolute Monocytes 0.28 0.25 Absolute Eosinophils 0.20 0.12 Absolute Basophils 0.02 0.02 VBG Lactate Sodium Potassium Chloride Carbon Dioxide Anion Gap BUN Creatinine Est GFR (CKD-EPI 2020) Glucose Calcium Magnesium Total Bilirubin AST ALT Alkaline Phosphatase Total Protein Albumin Lipase Urine Color Yellow Urine Clarity Cloudy Urine pH 7.0 Ur Specific [place] 1.015 Urine Protein 30 H Urine Ketones Negative Urine Blood Moderate H Urine Nitrite Positive H Urine Bilirubin Small H Urine Urobilinogen 2.0 H Ur Leukocyte Esterase Large H Urine RBC 5-10 H Urine WBC >50 H Ur Epithelial Cells Negative Urine Crystals Negative Urine Bacteria Many Urine Casts Negative Urine Mucus Negative Ur Culture Indicated? C&S Done As Ordered Urine Glucose Negative COVID-19 Source SARS-CoV-2 (PCR) Influenza Type A (PCR) Influenza Type B (PCR) RSV (PCR) 10/08/22 10/08/22 06:00 06:00 WBC 2.54 L RBC 4.10 L Hgb 11.0 L Hct 33.3 L MCV 81 MCH 26.8 L MCHC 33.0 RDW 15.2 H Plt Count 76 L MPV 9.6 Immature Gran % Neutrophils % Lymphocytes % Monocytes % Eosinophils % Basophils % Nucleated RBC % Absolute Neutrophils Absolute Lymphocytes Absolute Monocytes Absolute Eosinophils Absolute Basophils VBG Lactate Sodium 143 Potassium 3.1 L Chloride 107 Carbon Dioxide 27.1 Anion Gap 8.9 BUN 16 Creatinine 1.7 H Est GFR (CKD-EPI 2020) 42.30 Glucose 116 H Calcium 8.3 L Magnesium Total Bilirubin 3.8 H AST 124 H ALT 145 H Alkaline Phosphatase 361 H Total Protein 5.7 L Albumin 2.4 L Lipase 15 L Urine Color Urine Clarity Urine pH Ur Specific [place] Urine Protein Urine Ketones Urine Blood Urine Nitrite Urine Bilirubin Urine Urobilinogen Ur Leukocyte Esterase Urine RBC Urine WBC Ur Epithelial Cells Urine Crystals Urine Bacteria Urine Casts Urine Mucus Ur Culture Indicated? Urine Glucose COVID-19 Source SARS-CoV-2 (PCR) Influenza Type A (PCR) Influenza Type B (PCR) RSV (PCR) Time Spent with Patient Time Spent with Patient: 25-34 minutes Time was spent: preparing to see the patient(eg.review tests), referring, communicating with other health career services director, indepentently interpreting results and counseling the patient
[2022-10-08] MEDS: predniSONE 5 MG TAB PO (08:14)
[2022-10-08] MEDS: Tamsulosin 0.4 MG CAPCR PO (08:14)
[2022-10-08] MEDS: Metoprolol 25 MG TAB PO ×2 (08:15→19:32)
[2022-10-08] MEDS: Potassium Chloride 20 MEQ TABCR 40 MEQ PO (08:15)
[2022-10-08 08:40] LABS: INR 1.2 (0.9-1.1); PTT Activated 32.4 sec (21.5-31.9); Prothrombin Time 11.8 sec (9.3-11.0)
--- NOTE | 2022-10-08 09:10 | INITIAL_ITS ---
- If Service Date Differs Date of service: 10/08/22 Time of Service: 09:10 Care Management Initial Assess REASON FOR HOSPITALIZATION:: Acute cholecystitis PAST MEDICAL HISTORY/PAST SURGICAL HISTORY:: All Active Problems . Acute cholecystitis (Acute). Acute UTI (Acute). Elevated LFTs (Acute) PREVIOUS FUNCTIONAL STATUS/SOCIAL/FAMILY SUPPORTS:: Bebo lives in [facility] with his Marcela. He has a brother and 2 adult children who live locally. He is retired and no longer drives due to right sided hearing and vision loss. His provides his transportation, otherwise he is independent at baseline and within the community. CURRENT FUNCTIONAL STATUS:: Bebo is sitting in his chair when CM met with him. He is awake, pleasant and easy to engage in conversation throughout the process of this interview. ADVANCE DIRECTIVES:: None on file. Has patient been provided with info about the portal/API?: Yes Did the patient sign up for the portal?: No CODE STATUS:: Full Code INSURANCE COVERAGE / FINANCIAL ISSUES:: Medicare A&B CURRENT HOME/COMMUNITY SERVICES/EQUIPMENT:: [facility]- Dr. Wallace PRIMARY CARE PHYSICIAN:: Jacoby Caal PATIENT/FAMILY EDUCATION NEEDS:: Review discharge instructions, limitations, medications and discuss ask me three. TRANSPORTATION:: Via private vehicle with family. PLAN:: Bebo is being [facility] by [facility]. He went to [facility] for a down and back today. Palliative consult is ordered. CM will continue to support patient and discharge planning needs.
--- NOTE | 2022-10-08 11:18 | NUR.NOTE ---
Nursing Note: Patient transferred to the care of [facility] at 1056 for transfer to [facility] . Report given to IR and all their questions were answered.
--- NOTE | 2022-10-08 13:47 | PHA.REVIEW2 ---
Pharmacy Admission Review - Admission Clinical Review (Last Reviewed 10/07/22 @ 17:45 by Nishant Mccracken MD) Acute kidney injury (Acute) Acute cholecystitis (Acute) Acute UTI (Acute) Elevated LFTs (Acute) No Known Allergies Allergy (Unverified 10/07/22 09:59) Resuscitation Status Full Code Height 5 ft 2 in Weight 63.796 kg - Renal Dosing Renal Dosing: BUN 16 mg/dL (7-18) 10/08/22 06:00 Creatinine 1.7 mg/dL (0.70-1.30) H 10/08/22 06:00 Medications needing adjustments: Intervened (eCrCl 35 ml/min) List of meds needing interventions: eCrCl 35 ml/min, zosyn renally adjusted, metformin placed on hold due to slight TAYLOR + current NPO diet - resume when diet advances - Anticoagulation Anticoagulation: Hgb 11.0 g/dL (13.5-17.5) L 10/08/22 06:00 Hct 33.3 % (40.0-50.0) L 10/08/22 06:00 Plt Count 76 10^3/uL (130-400) L 10/08/22 06:00 INR 1.2 (0.9-1.1) H 10/08/22 08:20 Creatinine 1.7 mg/dL (0.70-1.30) H 10/08/22 06:00 DVT Prophylaxis: Reviewed Medications: Heparin - Opiate Usage Evaluate Pain Scale/Pains Meds: N/A - Relevant Labs Sodium 143 mmol/L (136-145) 10/08/22 06:00 Potassium 3.1 mmol/L (3.5-5.1) L 10/08/22 06:00 Chloride 107 mmol/L (98-107) 10/08/22 06:00 Magnesium 1.8 mg/dL (1.8-2.4) 10/07/22 10:24 Electrolytes, C-Reactive P, ESR: Reviewed (potassium repleted with 40 meq PO this AM) - DM Control DM Control: Glucose 116 mg/dL (74-106) H 10/08/22 06:00 Finger Stick Blood Glucose 0 Finger Stick Blood Glucose 102 Finger Stick Blood Glucose 102 Finger Stick Blood Glucose 102 Finger Stick Blood Glucose 110 Finger Stick Blood Glucose 110 DM Control: Reviewed (aspart per SS) - Cardiac Review BP, HR, EF%: Reviewed - Qtc Review QTc: N/A - IV to PO Switch IV Medications: Reviewed - Home Meds Home Med List reviewed: Reviewed Relevent Home Meds Not ordered & why?: Not ordered: abiraterone (oral chemo med, non-form, will order as pt's own if brought in by family), atorvastatin - Current meds Current Medication Order Review: Reviewed (zosyn 2.25 gm q6h (renally dosed))
--- NOTE | 2022-10-08 14:20 | CHAPLAIN ---
Bebo was sitting in the chair watching tv when I visited. He said he really wants to drink water, but isn't allow right now. He's in touch with his by phone. I explained my role and offered support.
[2022-10-08 16:20] VITALS: BP 159/77; PULSE 70; RESP 24; TEMP 35.6; O2SAT 100
[2022-10-08] MEDS: HYDROmorphone 2 MG/ML VIAL 0.5 MG IVP (16:23)
[2022-10-08] MEDS: Heparin 5,000 UNITS/ML VIAL 5000 UNITS SC (17:33)
[2022-10-08] MEDS: Acetaminophen 325 MG TAB PO (19:30)
[2022-10-08] MEDS: traMADol 50 MG TAB PO (19:31)
[2022-10-08 19:38] VITALS: BP 111/69; PULSE 73; RESP 14; TEMP 36.2; O2SAT 96
--- NOTE | 2022-10-08 20:16 | PCNE_ITS ---
Date of service: 10/09/22 Time of Service: 09:00 History of Present Illness Narrative: Mr. Min is a 72-year-old gentleman who lives in [facility] with his . He was admitted with acute cholecystitis. He has a history of metastatic prostate cancer and is under care of Dr. Wallace at [facility]. Palliative care team care received request for consult from his oncologist in July regarding pain management. History obtained from [facility] notes. Patient unable to provide dates or names of medications. was aware of some medication names and a little more able to recall dates. is present for the last bit only and gives additional history Patient initially presented with flank pain and fall 2019. Definitive diagnosis made in late spring 2020 and at that time he already had bony metastasis as well as positive nodes and a Left sided ureteral mass causing hydronephosis, elevated creatinine and requiring ureteral stenting (stent remains in place, does not seem to be causing sxs). . He has been receiving hydrocodone from his oncologist for the pain. Abdominal CT at the time of admission this week noted continued lytic lesions throughout the spine with persistent pathological fracture in T11 and T12. Prostate Cancer: He is followed by Dr. Wallace at [facility]. Had been on Hormone blocking therapy since diagnosis. However, he did stop anti-hormonal therapy over the summer (during which time he was traveling in [facility]). His PSA shot up to 113 in 08/21 (previous 3.2 02/19). Patient developed acute back pain in July 2022. Work-up revealed pathologic fractures of T11 and T12. Hormone therapy resumed and plan included starting Zometa infusions (unclear if received or not). in July. Because of progression of malignancy and patient's stopping of hormone therapy for 6 months while traveling, Dr. Wallace presented transitioning to hospice as one possible option at July 2022 visit, but patient wanted to resume treatment and pursue palliative radiation for new pathologic T-spine fractures. He received palliative radiation to the T12 lesion (5 treatments) -. PAIN: Pt also having pain from Common duct stone/cholecystitis and now discomfort from percutaneous drain placed yesterday. In the last 24 hours, he received one dose PRN hydrocodone 0.5 mg IV , one dose oral PRN tramadol and also is receiving scheduled IV tylenol Q8. His pain regimen at home prior to this acute episode cholecystitis: He is vague on this. He says the pain is definitely better over the last few weeks since having the radiation therapy. Pain is worse when he twists or moves quickly. He is having discomfort from the percutaneous tube in his lower right ribs area which is the same place as he has been having bony pain, but the character is somewhat different. As per state prescription monitoring database, he received 3 prescriptions for hydromorphone 2 mg (28 or 30 pills) since August 07. This would mean he is used 1-2 pills daily. Reports using Tylenol for headache but not for hip/back pain. says she has been urging him to use pain medicine more consistently, but in general she points out he is not consistent with pain medications or medications for constipation prevention. She says he has mostly been lying in bed and not doing very much of anything for the last month or so. Treatment team: Primary Care physician:Timo Caal APRN ([place], [place]) General surgeon: Dr. Mccracken Oncologist:Dr. Wallace, [facility] Radiation oncologist: Dr. 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 from first and mother of 4 children. to [place] for about 20 years and lives with Liberty and stepdaughter in [facility]. Both Liberty and stepdaughter are here today and seem supportive and involved in his care, helping with medication management and providing extra history. 2 sons live in [facility], 1 in [facility] and the fourth in [facility]. Son Jacoby lives in [facility] and Jacoby is most helpful child (and father of several of the patient's grandchildren). Patient has 1 great grandson never had many hobbies, constantly working. 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 He does enjoy cutting wood. He did spend last summer in [place]; enjoyed himself, got to see his sister and enjoyed walking. However would not go back to [place] unless he was feeling well as it requires a lot of walking. Impression of currents health status: Not going well but cannot be more specific What bothers you the most: Discomfort from the percutaneous tubes. Will bother him most before hospital admission was pain in his ribs and hips. What worries you the most: Nothing much Current information preferences: Cannot answer Function: Developed diplopia due to eye palsy about a month ago and has been unable to drive since then. Is waiting for prism glasses. Sounds like he had comprehensive evaluation including head imaging. Told it was due to his diab etes Ambulation: Does not use cane or walker. wonders if walker would be helpful. ADLs: Independent iADLs: Cannot make his bed. Can stand to cook up to 5 minutes but then needs to sit down. Cannot lift more than 3 pounds. Palliative Performance Scale % Ambulation Activity and Evidence of Disease Self Care Intake Level of Consciousness 100 Full Normal activity, no evidence of disease Full Normal Full 90 Full Normal activity, some evidence of disease Full Normal Full 80 Full Normal activity with effort, some evidence of disease Full Normal or reduced Full 70 Reduced Unable to do normal work, some evidence of disease Full Normal or reduced Full 60 Reduced Unable to do hobby or some housework, significant disease Occasional assist necessary Normal or reduced Full or confusion 50 Mainly sit/lie Unable to do any work, extensive disease Considerable assistance required Normal or reduced Full or confusion 40 Mainly in bed Unable to do any work, extensive disease Mainly assistance Normal or reduced Full, drowsy, or confusion 30 Totally bed bound Unable to do any work, extensive disease Total care Reduced Full, drowsy, or confusion 20 Totally bed bound Unable to do any work, extensive disease Total care Minimal sips Full, drowsy, or confusion 10 Totally bed bound Unable to do any work, extensive disease Total care Mouth care only Drowsy or coma 0 - - - - Patient Score: 50-60 Spiritual history: Raised sikhism latter day. Has not participated in any formal adventist for the last 50 years. Does feel connection to God and prayer does help. Feels at times that God is telling him to do certain things to protect him Palliative review of systems: Pain: See HPI Dyspnea: Ongoing dyspnea on exertion, noted since the summer. Definitely worse in the last week GI symptoms: Problems with constipation. Reports bowel movement every 2 weeks. says likely more often. Reports he only uses MiraLAX or magnesium citrate as needed and resists her advised to take daily. Appetite: Pretty good, weight goes up and down, baseline weight 150 pounds about a year ago, down to 140 pounds (reports 5 foot 2 inches) Depression: None Fatigue: Moderate to severe. Attributes some fatigue to Xgeva he was taking in the fall as well as to pneumonia he had in the fall (treated as outpatient) Anxiety: None Emotional Distress: None Spiritual/Existential Distress: None Labs: Cr: 10/07: 1.7 (2020 [facility] creatinine 1.37) Liver panel: Acutely elevated due to common duct stone, see labs Albumin: 3.3 on day of admission CBC: Developing pancytopenia, somewhat improved today Advanced Care Planning: Advanced Directive: None on file [facility] or [facility] Health Care Agent: He would want his Liberty and his son Timo to be joint healthcare agents. COLST: None on file [facility] or [facility] Limitations: Assessment and Plan Assessment and plan (1) Cancer related pain: Status: Acute Assessment and plan: #Cancer pain: VPMS Quertobias. Patient receiving hydromorphone 2 mg (28 or 30 pills) on September 18, August 26, August 07. Receiving prescriptions from both oncology and PCP. Prior prescription July 31, oxycodone 5 mg #28; last likely the one that cause some side effects, dizziness. He also is complaining of constipation. reports he is not consistent with taking bowel meds. Recommend: -Tylenol 650 mg 3 times daily scheduled (receiving this in the hospital for his biliary pain). -Hydromorphone 2 mg 3-4 times daily for pain, advised to use more consistently and see if this increases his ability to engage in activities and be less bedbound. If this works, consider transitioning to a long-acting opiate, perhaps even Butrans patch -He must adhere to a daily bowel regimen if he is taking opiates: Recommended senna 1 to 2 pills daily or MiraLAX 1 capful every day. Discussed with and written down. He has used magnesium citrate in the past for acute episodes of constipation and can continue to do so. -Recommend home health PT and OT referral at the time of discharge. His goal is to be able to walk more. May benefit from a strengthening regimen and perhaps also a walker. Also may benefit from shower chair. (2) Prostate cancer metastatic to bone: Status: Acute Assessment and plan: #Prostate cancer with bone metastasis, recent pathological fracture T12. Major symptoms appear to be bone pain (ribs hips lumbar and lower thoracic spine) and fatigue. He also has some dyspnea with exertion. Somewhat hard to sort out whether this is acute since cholecystitis or was present prior to acute issue, or is from deconditioning. -Patient ambivalent about continuing on palliative hormonal blocking therapy. Recommend continued discussion after discharge with both palliative care and oncology providers. It may be worth to do 1 visit with Ecuadorean chinese language professor, to see if this is helpful for both patient and provider. (3) Palliative care patient: Status: Acute Assessment and plan: #Advance care planning: -He has never had an advance care directive, blank form given and discussed with him. We will review at next visit. -We had a long discussion about low success rate of CPR and potential side effects and repercussions. Given his advanced prostate cancer I recommended that he strongly consider electing DNR. However,For now he would like to be a full code. I would like to discuss this again with him with a Ecuadorean chinese language professor present. (4) Acute cholecystitis: Status: Acute Assessment and plan: He will be discharged today and will follow-up with general surgeon. 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 Very talkative and enjoys worries. No dyspnea observed. Appears relaxed and full affect. No tenderness over his thoracic or lumbar spine. Results Last Vital Signs Temp 36.2 C L 10/08/22 19:38 Pulse 73 10/08/22 19:38 Resp 14 10/08/22 19:38 BP 111/69 10/08/22 19:38 Pulse Ox 96 10/08/22 19:38 Labs 10/09/22 06:09 10/09/22 06:09 Labs: Laboratory Results - last 24 hr 10/07/22 10/08/22 10/08/22 20:02 06:00 06:00 WBC 2.63 L 2.54 L RBC 4.21 L 4.10 L Hgb 11.1 L 11.0 L Hct 34.4 L 33.3 L MCV 82 81 MCH 26.4 L 26.8 L MCHC 32.3 33.0 RDW 14.7 H 15.2 H Plt Count 85 L 76 L MPV 9.2 9.6 Immature Gran % 0.8 Neutrophils % 66.4 Lymphocytes % 17.9 Monocytes % 9.5 Eosinophils % 4.6 Basophils % 0.8 Nucleated RBC % 0.0 Absolute Neutrophils 1.75 Absolute Lymphocytes 0.47 L Absolute Monocytes 0.25 Absolute Eosinophils 0.12 Absolute Basophils 0.02 PT INR APTT Sodium 143 Potassium 3.1 L Chloride 107 Carbon Dioxide 27.1 Anion Gap 8.9 BUN 16 Creatinine 1.7 H Est GFR (CKD-EPI 2020) 42.30 Glucose 116 H Calcium 8.3 L Total Bilirubin 3.8 H AST 124 H ALT 145 H Alkaline Phosphatase 361 H Total Protein 5.7 L Albumin 2.4 L Lipase 15 L 10/08/22 08:20 WBC RBC Hgb Hct MCV MCH MCHC RDW Plt Count MPV Immature Gran % Neutrophils % Lymphocytes % Monocytes % Eosinophils % Basophils % Nucleated RBC % Absolute Neutrophils Absolute Lymphocytes Absolute Monocytes Absolute Eosinophils Absolute Basophils PT 11.8 H INR 1.2 H APTT 32.4 H Sodium Potassium Chloride Carbon Dioxide Anion Gap BUN Creatinine Est GFR (CKD-EPI 2020) Glucose Calcium Total Bilirubin AST ALT Alkaline Phosphatase Total Protein Albumin Lipase
[2022-10-08 22:59] VITALS: BP 114/63; PULSE 60; RESP 14; TEMP 36.4; O2SAT 96
[2022-10-09] MEDS: PIPERACILLIN/TAZO 2.25 GM in Normal Saline 50 ML IVPB ×3 (00:38→12:57)
[2022-10-09] MEDS: Heparin 5,000 UNITS/ML VIAL 5000 UNITS SC (06:03)
[2022-10-09 06:42] LABS: HCT 33.8 % (40.0-50.0); HGB 10.9 g/dL (13.5-17.5); MCH 26.5 pg (27.0-33.0); MCHC 32.2 % (32.0-36.0); MCV 82 fL (80-95); RBC 4.11 10^6/uL (4.36-5.78); RDW 15.3 % (11.8-14.1); RDW-SD 46.2 fL
[2022-10-09 07:04] LABS: Platelet Count 87 10^3/uL (130-400)
[2022-10-09 07:05] LABS: ALT 125 U/L (16-63); AST 71 U/L (15-37); Albumin 2.4 g/dL (3.4-5.0); Alkaline Phosphatase 335 U/L (46-116); Anion Gap 7.5 mmol/L (3-11); BUN 17 mg/dL (7-18); Bilirubin, Total 3.2 mg/dL (0.2-1.0); CO2 23.5 mmol/L (21.0-32.0); CREATININE 1.4 mg/dL (0.70-1.30); Calcium 8.1 mg/dL (8.5-10.1); Chloride 108 mmol/L (98-107); Glucose 136 mg/dL (74-106); Potassium 3.2 mmol/L (3.5-5.1); Sodium 139 mmol/L (136-145); Total Protein 5.7 g/dL (6.4-8.2)
[2022-10-09 07:08] VITALS: BP 123/68; PULSE 75; RESP 16; TEMP 36.3; O2SAT 98
--- NOTE | 2022-10-09 07:20 | W.PM.PROGNOT ---
Date of Service Date of service: 10/09/22 Time of Service: 07:20 Assessment and Plan Assessment and plan (1) Acute cholecystitis: Status: Acute Assessment and plan: POD #1 s/p percutaneous cholecystostomy tube placement at [facility]. Pain is well controlled Improvement in LFTs Continue with patient education around drain management He is doing great after percutaneous drainage of his gallbladder. He looks more comfortable. He is tolerating a diet, and his labs have been improving. We will plan to discharge him home this evening, and follow-up in our office next week with repeat comprehensive metabolic panel. (2) Acute kidney injury: Status: Acute Assessment and plan: Continue with fluid resuscitation, Cr continues to be elevated. Subjective Subjective Interval history since last seen: Patient describes that his procedure went well yesterday. He is having some RUQ discomfort with movement and palpation around the drain site. He denies any fevers, chills or night sweats. Exam Const General: cooperative and comfortable Orientation: alert and oriented x3 Resp Effort & Inspection: normal respiratory effort, no audible wheezes and no cough GI Inspection: normal to inspection Palpation: soft and tender (around drain site) Skin General skin exam: jaundice Objective Last Vital Signs Temp 36.3 C L 10/09/22 07:08 Pulse 75 10/09/22 07:08 Resp 16 10/09/22 07:08 BP 123/68 10/09/22 07:08 Pulse Ox 98 10/09/22 07:08 Laboratory Results - last 24 hr 10/08/22 10/08/22 10/09/22 06:00 08:20 06:09 WBC 2.54 L RBC 4.10 L Hgb 11.0 L Hct 33.3 L MCV 81 MCH 26.8 L MCHC 33.0 RDW 15.2 H Plt Count 76 L MPV 9.6 PT 11.8 H INR 1.2 H APTT 32.4 H Sodium 139 Potassium 3.2 L Chloride 108 H Carbon Dioxide 23.5 Anion Gap 7.5 BUN 17 Creatinine 1.4 H Est GFR (CKD-EPI 2020) 53.40 Glucose 136 H Calcium 8.1 L Total Bilirubin 3.2 H AST 71 H ALT 125 H Alkaline Phosphatase 335 H Total Protein 5.7 L Albumin 2.4 L 10/09/22 06:09 WBC 3.30 L RBC 4.11 L Hgb 10.9 L Hct 33.8 L MCV 82 MCH 26.5 L MCHC 32.2 RDW 15.3 H Plt Count 87 L MPV 10.0 PT INR APTT Sodium Potassium Chloride Carbon Dioxide Anion Gap BUN Creatinine Est GFR (CKD-EPI 2020) Glucose Calcium Total Bilirubin AST ALT Alkaline Phosphatase Total Protein Albumin Time Spent with Patient Time Spent with Patient: <25 minutes Time was spent: preparing to see the patient(eg.review tests) and counseling the patient
[2022-10-09] MEDS: Tamsulosin 0.4 MG CAPCR PO (07:25)
[2022-10-09] MEDS: Metoprolol 25 MG TAB PO (07:25)
[2022-10-09] MEDS: predniSONE 5 MG TAB PO (07:25)
[2022-10-09] MEDS: Insulin Aspart 300 UNITS/3 ML PEN SC ×2 (07:27→11:19)
--- NOTE | 2022-10-09 10:56 | PDOC.HHF2F_ITS ---
Home Health Referral Home Health Orders Clinical synopsis of why skilled professionals are needed: New percutaneous cholcystotomy drain. He needs help with management and maintenance Medical diagnosis necessitation home health referral: Acalculcous cholecystitis Registered Nurse: Check all that apply Other: Instruct on and maintenance of percutaneous cholecystostomy tube Encounter Date and Reason: I certify that a FTF encounter for this patient was performed on October 09, 2022 and that such encounter was related to the primary reason the patient requires home health services. The encounter was conducted in the following manner: * By me as the certifying physician, WASTE TRANSPORTATION TECHNICIAN, PA or * By an inpatient physician, WASTE TRANSPORTATION TECHNICIAN or PA during an inpatient stay who communicated findings to me, Certification And Authentication I certify that I composed the above information based on my clinical judgment relating to this patient's medical condition and, if applicable, clinical findings communicated to me by the NPP or inpatient physician who performed the FTF encounter. Name of Provider that will be monitoring home health services: Nishant Mccracken
--- NOTE | 2022-10-09 12:29 | W.PM.DSUDISC ---
Date of service: 10/09/22 Time of Service: 12:29 Discharge Plan Disposition Patient Disposition: Home W/Home Health Services Condition: Good Discharge Details Reason For Visit: Cholecystitis Admit Date/Time: 10/07/22 16:35 Admit Provider: Nishant Mccracken Attending Provider: Nishant Mccracken Primary Care Provider: Jacoby Caal Hospital Course Hospital Course: Bebo is a 72-year-old male who comes to the hospital with fevers of uncertain etiology. He underwent a CAT scan of his abdomen and pelvis that demonstrated cholecystitis. He had elevated bilirubin and liver function test concerning for choledocholithiasis, and an MRCP ruled out any stones in the common bile duct. He traveled down to [facility] for a down and back percutaneous cholecystostomy tube that he tolerated well. By the morning of the , his liver function test and creatinine had started to improve, and his drain was working well to decompress his gallbladder. Home Meds and New Rx's Prescriptions: New ciprofloxacin HCl [Cipro] 500 mg tablet 500 mg PO Q12H Qty: 10 0RF metronidazole 500 mg tablet 500 mg PO Q8H Qty: 15 0RF tramadol 50 mg tablet 50 mg PO Q8H PRN (Reason: pain) Qty: 12 0RF Rx Instructions: Take 1 tablet by mouth up to every 8 hours if needed for severe pain. Do not drive while taking this medication. Continued atorvastatin 80 mg Tablet 80 mg PO DAILY prednisone 5 mg Tablet 5 mg PO DAILY tamsulosin 0.4 mg Capsule 0.4 mg PO DAILY metformin 750 mg Tablet Extended Release 24 Hr 750 mg PO DAILY metoprolol tartrate 25 mg Tablet 25 mg PO BID abiraterone 250 mg Tablet 1,000 mg PO DAILY Rx Instructions: must be taken on empty stomach, at least 1 hr before or 2 hrs after a meal/food hydromorphone 2 mg tablet 2 mg PO Q6H PRN PRN Patient Comments: TAKE 1 TABLET BY MOUTH EVERY 6 HOURS FOR 7 DAYS NEEDED FOR PAIN Discharge Instructions Instructions: Cholecystitis (GEN) Additional Instructions: Please be sure to have your blood drawn prior to your follow-up appointment on October 16. An order has been placed with outpatient lab, and you should schedule that appointment accordingly. Stand Alone Forms: Nursing Discharge Form Referrals: Azalea Araya DO [OSTEOPATHIC DOCTOR] - (10/16 at 9 AM ) Activity:: Activity as Tolerated Equipment/Supplies:: No Equipment Needed Diet:: As Tolerated DS: Diagnosis Discharge Diagnosis (1) Acute cholecystitis: Status: Acute Asessment and Plan: Percutaneous drainage of the gallbladder -Continue outpatient antibiotics (2) Acute kidney injury: Status: Acute Asessment and Plan: Improved after decompression of the gallbladder, and gentle resuscitation
[2022-10-09 14:44] VITALS: BP 139/76; PULSE 70; RESP 18; TEMP 37.2; O2SAT 96
[2022-10-09] MEDS: Acetaminophen 325 MG TAB PO (15:28)
--- NOTE | 2022-10-09 16:52 | PDOC.CMDIS ---
- If Service Date Differs Date of service: 10/09/22 Time of Service: 16:53 LACE Index Scoring Tool - Questions: Length of Stay (in days): 2 Acuity (Admit via E.D.?): Yes Comorbidities: Diabetes w/o Complication E.D. Visits: 1 - Answers: Total Score: 7 Risk of Readmission: Low Risk Care Management Discharge Reason for Hospitalization: Acute cholecystitis Discharge Plan: Bebo will return home today with new HH RN for drain care. CM faxed the referral to [facility]. His will drive him home via private vehicle. He will follow up with his PCP and discharge plan of care. He was happy to be going home. Patient/Family Education Needs: Review discharge instructions and limitations, discussion of self care needs including ask me three. Services Needed at Discharge: Home Health Care Services (HH RN)
== END 2022-10-09 16:09 | disposition home health service (06) | DRG 445 ==
LOC: ER 16:53 → MS 17:27
PROVIDERS: Admitting Provider Surgery; Emergency Provider Nurse Practitioner Family; PCP Nurse Practitioner; Visit Provider Surgery
DX: K81.0 Acute cholecystitis (principal); C79.51 Secondary malignant neoplasm of bone; N17.9 Acute kidney failure, unspecified; N39.0 Urinary tract infection, site not specified; G89.3 Neoplasm related pain (acute) (chronic); C61 Malignant neoplasm of prostate; Z51.5 Encounter for palliative care; Z87.891 Personal history of nicotine dependence; D69.6 Thrombocytopenia, unspecified; H53.2 Diplopia; E11.9 Type 2 diabetes mellitus without complications; I25.10 Atherosclerotic heart disease of native coronary artery without angina pectoris; Z95.1 Presence of aortocoronary bypass graft; B95.61 Methicillin susceptible Staphylococcus aureus infection as the cause of diseases classified elsewhere
CPT/HCPCS: 36415; 80053; 83690; 85027; 87040; 87077; 87637; 96361; 96365; 99222; 99231; 99285; 71046; 74177; 74181; 81003; 81015; 83605; 83735; 85025; 85610; 85730; 87086; 87186; A0425; A0426; A0428; J0131; J0696; J1644; J2543; J3490; J7512

== ENCOUNTER 2022-10-14 15:01 | Outpatient (CLI) | payer MEDICARE, SELFPAY ==
[2022-10-14 14:56] LABS: HCT 39.5 % (40.0-50.0); HGB 12.5 g/dL (13.5-17.5); MCH 26.6 pg (27.0-33.0); MCHC 31.6 % (32.0-36.0); MCV 84 fL (80-95); MPV 9.2 fL (8.0-11.0); Platelet Count 178 10^3/uL (130-400); RDW 16.2 % (11.8-14.1); RDW-SD 48.7 fL; WBC 5.07 10^3/uL (4.4-10.8)
[2022-10-14 15:47] LABS: ALT 102 U/L (16-63); AST 51 U/L (15-37); Albumin 3.4 g/dL (3.4-5.0); Alkaline Phosphatase 364 U/L (46-116); Anion Gap 9.5 mmol/L (3-11); BUN 17 mg/dL (7-18); Bilirubin, Total 1.7 mg/dL (0.2-1.0); CO2 26.5 mmol/L (21.0-32.0); CREATININE 1.4 mg/dL (0.70-1.30); Calcium 9.3 mg/dL (8.5-10.1); Chloride 103 mmol/L (98-107); Glucose 197 mg/dL (74-106); Potassium 3.6 mmol/L (3.5-5.1); Sodium 139 mmol/L (136-145); Total Protein 7.7 g/dL (6.4-8.2)
== END 2022-10-14 15:02 | disposition home or self-care (01) ==
LOC: LBO 15:01
PROVIDERS: PCP Nurse Practitioner; Visit Provider Surgery
DX: K81.0 Acute cholecystitis (principal); R79.89 Other specified abnormal findings of blood chemistry; E11.69 Type 2 diabetes mellitus with other specified complication; N17.9 Acute kidney failure, unspecified
CPT/HCPCS: 36415; 80053; 85027

== ENCOUNTER → 2022-10-16 08:32 | Outpatient (BNVA) | payer MEDICARE, MEDICAID, SELFPAY | PROVIDERS: PCP Nurse Practitioner; Referring Provider Nurse Practitioner; Visit Provider Surgery | DX: K81.0 Acute cholecystitis (principal); E11.69 Type 2 diabetes mellitus with other specified complication; N17.9 Acute kidney failure, unspecified; G89.3 Neoplasm related pain (acute) (chronic); C61 Malignant neoplasm of prostate | CPT/HCPCS: 99212; 99214 ==

== ENCOUNTER 2022-11-03 03:08 | Outpatient (CLI) | payer MEDICARE, MEDICAID, SELFPAY ==
[2022-11-03 12:24] LABS: Abs Immature Grans 0.04 10^3/uL (0.0-0.06); Absolute Basophil Count 0.06 10^3/uL (0.0-0.2); Absolute Lymphocyte Count 1.28 10^3/uL (1.2-3.4); Absolute Monocyte Count 0.59 10^3/uL (0.1-0.8); Basophils % 0.9; HCT 39.8 % (40.0-50.0); HGB 12.7 g/dL (13.5-17.5); Immature Grans % 0.6; Lymphocytes % 18.9; MCHC 31.9 % (32.0-36.0); MCV 85 fL (80-95); MPV 9.6 fL (8.0-11.0); Monocytes % 8.7; Neutrophils % 70.9; Platelet Count 191 10^3/uL (130-400); RBC 4.71 10^6/uL (4.36-5.78); RDW 15.5 % (11.8-14.1); RDW-SD 47.3 fL; WBC 6.77 10^3/uL (4.4-10.8)
[2022-11-03 12:34] LABS: Prothrombin Time 9.9 sec (9.3-11.0)
[2022-11-03 12:57] LABS: ALT 41 U/L (16-63); AST 30 U/L (15-37); Albumin 3.7 g/dL (3.4-5.0); Alkaline Phosphatase 151 U/L (46-116); Anion Gap 9.1 mmol/L (3-11); BUN 17 mg/dL (7-18); Bilirubin, Total 0.8 mg/dL (0.2-1.0); C-Reactive Protein 0.15 mg/dL (0.0-0.3); CO2 27.9 mmol/L (21.0-32.0); CREATININE 1.5 mg/dL (0.70-1.30); Calcium 10.1 mg/dL (8.5-10.1); Chloride 101 mmol/L (98-107); Estimated GFR 49.16 (mL/min/1.73m2); Glucose 299 mg/dL (74-106); Lipase 32 U/L (16-77); Potassium 4.7 mmol/L (3.5-5.1); Sodium 138 mmol/L (136-145)
== END 2022-11-03 03:09 | disposition home or self-care (01) ==
LOC: LBO 03:08
PROVIDERS: PCP Nurse Practitioner; Visit Provider Surgery
DX: C61 Malignant neoplasm of prostate (principal); C79.51 Secondary malignant neoplasm of bone; E11.69 Type 2 diabetes mellitus with other specified complication; G89.3 Neoplasm related pain (acute) (chronic); K81.0 Acute cholecystitis; N17.9 Acute kidney failure, unspecified; R79.89 Other specified abnormal findings of blood chemistry; Z51.5 Encounter for palliative care; Z86.79 Personal history of other diseases of the circulatory system; C50.919 Malignant neoplasm of unspecified site of unspecified female breast
CPT/HCPCS: 36415; 80053; 83690; 99212; 99213; 85025; 85610; 86140

== ENCOUNTER 2022-11-07 02:52 | Outpatient (CLI) | payer MEDICARE, MEDICAID, SELFPAY ==
[2022-11-07 09:11] LABS: Abs Immature Grans 0.05 10^3/uL (0.0-0.06); Absolute Basophil Count 0.04 10^3/uL (0.0-0.2); Absolute Lymphocyte Count 0.99 10^3/uL (1.2-3.4); Absolute Monocyte Count 0.62 10^3/uL (0.1-0.8); Absolute Neutrophil Count 6.29 10^3/uL (1.2-6.7); Basophils % 0.5; Immature Grans % 0.6; Lymphocytes % 12.4; Monocytes % 7.8; Neutrophils % 78.7; WBC 7.99 10^3/uL (4.4-10.8)
[2022-11-07 09:58] LABS: ALT 41 U/L (16-63); AST 32 U/L (15-37); Albumin 3.4 g/dL (3.4-5.0); Alkaline Phosphatase 155 U/L (46-116); Bilirubin, Direct 0.2 mg/dL (0.0-0.2); Bilirubin, Total 0.8 mg/dL (0.2-1.0); Total Protein 7.6 g/dL (6.4-8.2)
--- NOTE | 2022-11-07 11:00 | DI.CT_ITS ---
Exam(s) CT ABDOMEN WO EXAM: CT ABDOMEN WO CLINICAL HISTORY: unable to remove pigtail drain from GB,obstruction, T85.590a. TECHNIQUE: Imaging Protocol: Axial computed tomography images with coronal and sagittal reformatted images were created and reviewed. COMPARISON: CT CT ABDOMEN PELVIS W from 10/07/2022 FINDINGS: ABDOMEN: Lung Bases: Coronary artery calcifications are present. There is a small hiatal hernia. There is ag ain seen bilateral basilar scarring present. Liver: Normal density. No measurable mass. There is again seen a cholecystostomy tube. The pigtail i s still seen within the catheter. The catheter lies at the junction of the gallbladder and liver. Gallbladder and Biliary Tract: No radiodense calculus or dilation. Pancreas: Normal density, no abnormal calcifications or inflammatory process. Spleen: Normal. Adrenals: No masses seen. Kidneys: There is atrophy of the left kidney. The proximal portion of a left nephroureteral stent is in good position. There is again seen a simple cyst in the superior pole of the right kidney. No f ollow-up is recommended. Abdominal Aorta: Abdominal portion non-dilated. Atherosclerosis is present. Bowel: No obstruction or bowel wall thickening. No evidence of appendicitis. Peritoneal Cavity: No ascites, collection or mesenteric inflammatory response. No free air. Lymph Nodes: Within normal limits. Bones: There again seen multiple sclerotic foci in the bones consistent with metastatic disease. The re is a pathologic fracture involving the T12 vertebral body. There is extension into the central sp inal canal resulting in moderately severe central spinal canal stenosis. This is grossly unchanged c ompared to 10/07/2022. There is been further compression of the T11 pathologic fracture. It shows mil d further compression compared to 10/07/2022. Sternal wires are in place. Soft Tissues: There is mild edema in the soft tissues along the anterior abdominal wall. IMPRESSION: 1. Cholecystostomy tube. The pigtail in the is still present and is located at the junction between the gallbladder and the liver. No pericholecystic fluid collection or pneumoperitoneum is present. 2. Findings of osseous metastatic disease with pathologic fractures involving T11 and T12. The findi ngs do result in moderately severe central spinal canal stenosis at T12. There has been slight furth er compression of the T11 pathologic fracture since October 2022. RADIATION DOSE DELIVERED: 475.61mGy.cm Total DLP DATA REPOSITORY: All CT scans at this facility are submitted to the National Radiology Data Registry (NRDR) Dose Index Registry (DIR) with the [employer] (ACR). RADIATION OPTIMIZATION: All CT scans at this facility use at least one of these dose optimization te chniques: automated exposure control; mA and/or kV adjustment per patient size (includes targeted exa ms where dose is matched to clinical indication); or iterative reconstruction.
--- NOTE | 2022-11-07 13:28 | DI.CT_ITS ---
Exam(s) CT CHEST/ABD WO EXAM: CT CHEST/ABD WO CLINICAL HISTORY: S/P PEG TUBE REMOVAL WITH INCREASED PAIN TECHNIQUE: Imaging Protocol: Axial computed tomography images with coronal and sagittal reformatted images were created and reviewed COMPARISON: CT CT ABDOMEN PELVIS W from 10/07/[address] ABDOMEN WO from 11/07/2022 FINDINGS: CHEST: Tracheobronchial tree: Patent where visualized. Pulmonary parenchyma: Predominantly peripheral interstitial disease is seen in the lungs bilaterally. No focal consolidating infiltrates are seen. Incidental note is made of an azygos lobe which is a normal variant. Mediastinum and Macrina: No dominant adenopathy or fluid collection. The esophagus is unremarkable. Thyroid gland: Unremarkable. Pleura: No effusion or pneumothorax. Heart: The heart is not dilated. Extensive coronary artery calcification is present. No pericardial effusion. Aorta: Thoracic aorta non-dilated. Atherosclerosis is present. Lymph nodes: Within normal limits. Bones:Sternal wires are present. There is sclerotic metastatic disease. Pathologic fractures are se en at T11 and T12. There has been no significant change compared to the CT scan from earlier in the day. Soft tissues: There is mild gynecomastia. ABDOMEN: Liver: Normal density. No measurable mass. There has been interval removal of the cholecystostomy tub e. There is a tiny focus of air adjacent to the liver in the region of the previous cholecystostomy tube. Gallbladder and Biliary Tract: There is a small amount of air seen within the gallbladder likely refl ecting manipulation of the cholecystostomy tube. No stones or biliary ductal dilatation is seen. Pancreas: Normal density, no abnormal calcifications or inflammatory process. Spleen: Normal. Adrenals: No masses seen. Kidneys: There is left renal cortical atrophy. The proximal portion of a left nephroureteral stent i s in good position. No radiodense stones or obstructive uropathy. There is a simple cyst in the supe rior pole of the right kidney. No follow-up is recommended. Abdominal Aorta: Abdominal portion non-dilated. Atherosclerosis is present. Bowel: No obstruction or bowel wall thickening. Peritoneal Cavity: No ascites, collection or mesenteric inflammatory response. There is a tiny amount of free air in the right upper quadrant. This may be secondary to the removal of the patient's neph rostomy tube. Lymph Nodes: Within normal limits. Bones: Findings of sclerotic metastatic disease. Soft Tissues: Unremarkable. IMPRESSION: 1. Interval removal of the cholecystostomy tube. There is a tiny focus of air in the right upper kaylan drant in the gallbladder likely reflecting removal of this tube. No fluid collection is seen. 2. Findings of osseous metastatic disease. 3. 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 This may reflect chronic fibrosis. A cute interstitial process cannot be entirely excluded. RADIATION DOSE DELIVERED: 739.35mGy.cm Total DLP DATA REPOSITORY: All CT scans at this facility are submitted to the National Radiology Data Registry (NRDR) Dose Index Registry (DIR) with the [employer] (ACR). RADIATION OPTIMIZATION: All CT scans at this facility use at least one of these dose optimization te chniques: automated exposure control; mA and/or kV adjustment per patient size (includes targeted exa ms where dose is matched to clinical indication); or iterative reconstruction.
== END 2022-11-07 02:53 | disposition home or self-care (01) ==
PROVIDERS: PCP Nurse Practitioner; Visit Provider Surgery
DX: C61 Malignant neoplasm of prostate (principal); C79.51 Secondary malignant neoplasm of bone; E11.69 Type 2 diabetes mellitus with other specified complication; K81.0 Acute cholecystitis; R79.89 Other specified abnormal findings of blood chemistry; T85.590A Other mechanical complication of bile duct prosthesis, initial encounter
CPT/HCPCS: 36415; 71250; 74150; 80076; 85048; 99212; 99215; 99283; 76000; 85007; 99284

== ENCOUNTER 2022-11-07 13:34 | Emergency (ER) | payer MEDICARE, MEDICAID, SELFPAY ==
[2022-11-07 13:37] VITALS: BP 154/77; PULSE 80; RESP 18; TEMP 37.2; O2SAT 99
[2022-11-07] MEDS: Methocarbamol 750 MG TAB PO (13:51)
[2022-11-07] MEDS: oxyCODONE 10 MG TAB PO (13:51)
--- NOTE | 2022-11-07 14:06 | ED.GENADUL_ITS ---
Discharge Plan Disposition Patient Disposition: Home Condition: Stable Discharge Details Clinical Impression: Other acute postprocedural pain Primary Care Provider: Jacoby Caal ED Provider: Harley Felder Home Meds and New Rx's Prescriptions: Continued calcium carbonate-vitamin D3 [Calcium 600 with Vitamin D3] 600 mg-12.5 mcg (500 unit) capsule 1 cap PO DAILY insulin glargine [Lantus Solostar U-100 Insulin] 100 unit/mL (3 mL) insulin pen 20 unit subcut QPM insulin aspart U-100 [Novolog U-100 Insulin aspart] 100 unit/mL solution 1 sliding scale dose subcut USEASDIRECTD atorvastatin 80 mg Tablet 80 mg PO DAILY tamsulosin 0.4 mg Capsule 0.4 mg PO DAILY metformin 750 mg Tablet Extended Release 24 Hr 750 mg PO DAILY metoprolol tartrate 25 mg Tablet 25 mg PO BID hydromorphone 2 mg tablet 2 mg PO Q6H PRN PRN Patient Comments: TAKE 1 TABLET BY MOUTH EVERY 6 HOURS FOR 7 DAYS NEEDED FOR PAIN tramadol 50 mg tablet 50 mg PO Q8H PRN (Reason: pain) Qty: 12 0RF Rx Instructions: Take 1 tablet by mouth up to every 8 hours if needed for severe pain. Do not drive while taking this medication. polyethylene glycol 3350 [Miralax] 17 gram/dose powder 17 g PO DAILY PRN Discontinued prednisone 5 mg Tablet 5 mg PO DAILY Patient Comments: not taking abiraterone 250 mg Tablet 1,000 mg PO DAILY Patient Comments: not taking Rx Instructions: must be taken on empty stomach, at least 1 hr before or 2 hrs after a meal/food No Action methocarbamol 750 mg tablet 750 mg PO Q8H PRN (Reason: muscle spasms) Qty: 30 0RF oxycodone 5 mg tablet 5 mg PO Q6H MDD 4 PRN (Reason: pain) Qty: 14 0RF Discharge Instructions Additional Instructions: Medications were called to your pharmacy by Dr. Rolle. Please sisal picker these medications. Please contact your primary care physician to arrange follow-up. Return to the ER immediately for any worsening or new concerning symptoms. Referrals: Jacoby Caal [Primary Care Provider] - Azalea Araya DO [OSTEOPATHIC DOCTOR] - Discharge Data Discharge Date/Time-TO BE ENTERED AT DEPARTURE: 11/07/22 14:18 Medical Decision Making 72-year-old male presents immediately post gallbladder drain removal for severe pain. CT of the abdomen pelvis was obtained post procedurally as ordered by Dr. Araya. CT the abdomen pelvis was interpreted by radiology: 1. Interval removal of the cholecystostomy tube.? There is a tiny focus of air in the right upper quadrant in the gallbladder likely reflecting removal of this tube.? No fluid collection is seen. 2. Findings of osseous metastatic disease. 3. Predominantly peripheral interstitial disease in the lungs.? This may reflect chronic fibrosis.? Acute interstitial process cannot be entirely excluded.? Patient was provided analgesic and on reassessment pain resolved. Feeling much better. I discussed case with Dr. Araya who recommends discharge with outpatient follow-up with Dr. Rolle. HPI General Mode of arrival: ambulatory . Date/Time Provider Initiated Documentation: 11/07/22 13:39 . Limitations to Documentation: no limitations . Information obtained by: patient . HPI Narrative: 72-year-old male sent by general surgery for postprocedural pain. Patient had gallbladder drain removed by general surgery just prior to arrival. He had severe pain with removal of the drain. Related Data Home Medications Medication Instructions Recorded Confirmed atorvastatin 80 mg tablet 80 mg PO DAILY 10/07/22 11/10/22 metformin 750 mg tablet,extended 750 mg PO DAILY 10/07/22 11/10/22 release 24 hr metoprolol tartrate 25 mg tablet 25 mg PO BID 10/07/22 11/10/22 tamsulosin 0.4 mg capsule 0.4 mg PO DAILY 10/07/22 11/10/22 hydromorphone 2 mg tablet 2 mg PO Q6H PRN PRN 10/08/22 11/10/22 tramadol 50 mg tablet 50 mg PO Q8H PRN pain #12 tabs 10/09/22 11/10/22 calcium carbonate 600 mg-vitamin 1 cap PO DAILY 10/16/22 11/10/22 D3 12.5 mcg (500 unit) capsule (Calcium 600 with Vitamin D3) insulin aspart U-100 100 unit/mL 1 sliding scale dose subcut 10/16/22 11/10/22 subcutaneous solution (Novolog USEASDIRECTD U-100 Insulin aspart) insulin glargine 100 unit/mL (3 20 unit subcut QPM 10/16/22 11/10/22 mL) subcutaneous pen (Lantus Solostar U-100 Insulin) methocarbamol 750 mg tablet 750 mg PO Q8H PRN muscle spasms 11/07/22 11/10/22 #30 tabs oxycodone 5 mg tablet 5 mg PO Q6H PRN pain #14 tabs 11/07/22 11/10/22 polyethylene glycol 3350 17 17 g PO DAILY PRN 11/07/22 11/10/22 gram/dose oral powder (Miralax) Previous Rx's Medication Instructions Recorded tramadol 50 mg tablet 50 mg PO Q8H PRN pain #12 tabs 10/09/22 methocarbamol 750 mg tablet 750 mg PO Q8H PRN muscle spasms 11/07/22 #30 tabs oxycodone 5 mg tablet 5 mg PO Q6H PRN pain #14 tabs 11/07/22 Allergies Allergy/AdvReac Type Severity Reaction Status Date / Time No Known Allergies Allergy Unverified 11/10/22 09:33 General Stated Complaint: Nk/Back Pain YONI: 3 Review of Systems Constitutional Constitutional: Denies fever(s) Gastrointestinal Gastrointestinal: Reports as per HPI PFSH All Active Problems (Updated 11/10/22 @ 22:09 by Azalea Araya DO) Left inguinal hernia (Acute) Atherosclerosis of aorta (Acute) Pathologic fracture (Acute) T spine Type 2 diabetes mellitus with other specified complication (Acute) Palliative care patient (Acute) Cancer related pain (Acute) Prostate cancer metastatic to bone (Acute) Acute kidney injury (Acute) Acute cholecystitis (Acute) Elevated LFTs (Acute) Medical History (Updated 11/10/22 @ 22:09 by Azalea Araya DO) 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 Social History Smoking/Tobacco Use Status: Former Tobacco Use Smoking risk assessment performed?: Yes Alcohol Intake: former Drug use: Never Substance use type: does not use Do you feel safe at home: Yes Do you feel safe in your relationship?: Yes Exam Const General: cooperative and no acute distress HENMT Mouth: moist mucous membranes Eyes Conjunctivae: normal conjunctivae Sclera: normal sclerae Resp Auscultation: clear to auscultation bilaterally, no rales, no rhonchi and no wheezes Cardio Rate: regular rate and not tachycardic Rhythm: regular rhythm GI Palpation: soft, not firm, no guarding, no masses, not rigid and nontender Other: Drain site without erythema or discharge Skin General skin exam: no rashes or lesions noted Neuro General: patient alert and patient awake Course Vital Signs Vital signs: Vital Signs Temperature 37.2 C 11/07/22 13:37 Pulse 80 11/07/22 13:37 Respiratory Rate 18 11/07/22 13:37 Blood Pressure 154/77 H 11/07/22 13:37 Pulse Oximetry 99 11/07/22 13:37 Temperature 37.2 C 11/07/22 13:37 Temperature Source Tympanic 11/07/22 13:37 Pulse 80 11/07/22 13:37 Respiratory Rate 18 11/07/22 13:37 Respiratory Effort Normal, Non-Labored 11/07/22 13:39 Blood Pressure 154/77 H 11/07/22 13:37 Pulse Oximetry 99 11/07/22 13:37 Oxygen Delivery Method Room Air 11/07/22 13:37 Oxygen Flow Rate 0 11/07/22 13:37
--- NOTE | 2022-11-07 14:08 | NUR.NOTE ---
pt reports some relief of pain
[2022-11-07 14:18] VITALS: BP 134/77; PULSE 74; RESP 18; O2SAT 99
== END 2022-11-07 14:18 | disposition home or self-care (01) ==
PROVIDERS: Emergency Provider Student in an Organized Health Care Education/Training Program; PCP Nurse Practitioner
DX: G89.18 Other acute postprocedural pain (principal); M25.511 Pain in right shoulder
CPT/HCPCS: 99283; 99284

== ENCOUNTER → 2022-11-10 09:11 | Outpatient (BNVA) | payer MEDICARE, MEDICAID, SELFPAY | PROVIDERS: PCP Nurse Practitioner; Referring Provider Nurse Practitioner; Visit Provider Surgery | DX: R10.11 Right upper quadrant pain (principal); T85.590 Other mechanical complication of bile duct prosthesis; C61 Malignant neoplasm of prostate; C79.51 Secondary malignant neoplasm of bone; G89.3 Neoplasm related pain (acute) (chronic) | CPT/HCPCS: 36415; 99212; 99213 ==

== ENCOUNTER 2022-11-10 09:27 | Outpatient (REF) | payer MEDICARE, SELFPAY ==
[2022-11-10 09:52] LABS: Abs Immature Grans 0.08 10^3/uL (0.0-0.06); Absolute Basophil Count 0.03 10^3/uL (0.0-0.2); Absolute Eosinophil Count 0.04 10^3/uL (0.0-0.7); Absolute Lymphocyte Count 1.14 10^3/uL (1.2-3.4); Absolute Neutrophil Count 8.84 10^3/uL (1.2-6.7); Basophils % 0.3; Eosinophils % 0.4; HCT 36.8 % (40.0-50.0); Immature Grans % 0.7; Lymphocytes % 10.2; MCH 26.5 pg (27.0-33.0); MCHC 32.6 % (32.0-36.0); MCV 81 fL (80-95); MPV 9.8 fL (8.0-11.0); Neutrophils % 79.4; Platelet Count 213 10^3/uL (130-400); RBC 4.52 10^6/uL (4.36-5.78); RDW 15.2 % (11.8-14.1); RDW-SD 45.2 fL; WBC 11.13 10^3/uL (4.4-10.8)
[2022-11-10 11:06] LABS: ALT 33 U/L (16-63); AST 38 U/L (15-37); Albumin 3.4 g/dL (3.4-5.0); Alkaline Phosphatase 204 U/L (46-116); Bilirubin, Direct 0.3 mg/dL (0.0-0.2); Bilirubin, Total 0.9 mg/dL (0.2-1.0); Total Protein 7.5 g/dL (6.4-8.2)
[2022-11-18 21:48] LABS: PSA, Ultrasensitive 218 ng/mL (<= 6.5)
== END 2022-11-10 09:28 | disposition home or self-care (01) ==
LOC: LBN 09:27
PROVIDERS: Nurse Practitioner Adult Health; PCP Nurse Practitioner; Visit Provider Surgery
DX: K81.0 Acute cholecystitis (principal); E11.69 Type 2 diabetes mellitus with other specified complication; R79.89 Other specified abnormal findings of blood chemistry; C61 Malignant neoplasm of prostate; C79.51 Secondary malignant neoplasm of bone; R10.11 Right upper quadrant pain; G89.3 Neoplasm related pain (acute) (chronic); N17.9 Acute kidney failure, unspecified
CPT/HCPCS: 80076; 84153; 85025

== ENCOUNTER 2022-11-17 02:06 | Outpatient (CLI) | payer MEDICARE, MEDICAID, SELFPAY ==
--- NOTE | 2022-11-17 06:55 | DI.CT_ITS ---
Exam(s) CT CHEST/ABD WO EXAM: CT CHEST/ABD WO CLINICAL HISTORY: ruq pain,obstruction catheter,atherosclerosis of aorta. TECHNIQUE: Imaging Protocol: Axial computed tomography images with coronal and sagittal reformatted images were created and reviewed CONTRAST MATERIAL: Intravenous: none Oral: None COMPARISON: MR MR ABDOMEN WO from 10/07/[address] CHEST/ABD WO from 11/07/[address] ABDOMEN WO from 11/07/2022 FINDINGS: CHEST: LUNGS: Again noted is predominately interstitial disease peripheral aspects of both lung castellanos, sandy lar to the previous study. No new discrete ominous pulmonary nodules. No pleural effusions.. Toussaint otomy wires again noted. MEDIASTINUM: No obvious hilar nor mediastinal adenopathy. Visualized thyroid unremarkable. CARDIAC: Sternotomy wires. Heart size is normal. There is no pericardial effusion.Coronary artery c alcification is again noted. This is somewhat extensive. Caliber thoracic aorta is upper normal. OSSEOUS: Sclerotic osseous metastatic disease again noted.. ABDOMEN: There is no ascites. Symmetrical bilateral subcutaneous densities are most probably from anticoagula nt injections. No abscess seen. LIVER: There is presently no evidence of trans hepatic catheter. No catheter in the gallbladder lumen nor i n the biliary tree. No obvious discrete focal hepatic lesions. GALLBLADDER/BILIARY: Gallbladder appears unremarkable. CBD is not dilated. PANCREAS: No evidence of obvious pancreatic mass nor dilatation of the pancreatic duct. SPLEEN: Spleen is not enlarged. No obvious intrasplenic lesions. ADRENALS: There are no significant adrenal masses. KIDNEYS: 2 cm cyst in the lateral aspect of the right kidney noted. There is a left ureteral stent i n place. Lower aspect of the stent is not seen because the pelvis was not scanned. Upper aspect of the stent is in good position in the left renal pelvis. Left kidney is smaller than the right. Does not contain obvious calculi nor ominous renal masses. ABDOMINAL AORTA: Calcified but not enlarged. Aortic bifurcation common iliac arteries are also heavi ly calcified-atherosclerotic. LYMPH NODES: There is no retroperitoneal nor para-aortic adenopathy. ABDOMINAL WALL/GI: No evidence of significant anterior abdominal hernia in the field of view of this study. No evidence of bowel obstruction. OSSEOUS: Blastic metastatic disease multiple levels but most prominent at T11 and T12 vertebral nirmala s. At T12 level there is dehiscence of the posterior cortex with bulging of neoplastic marrow tissue into the spinal canal. T11 vertebral body also severely involved but posterior cortex appears still intact. IMPRESSION: 1. Severe metastatic osseous disease at T11 and T12 vertebral bodies. There is dehiscence of the po sterior cortex of T12 with bulging of neoplastic tissue into the spinal canal. Also extensive involv ement of T11 but the posterior cortex at this level appears intact. 1. There is presently no evidence of right-sided catheter. There is no evidence of trans hepatic nikita iary drainage catheter nor cholecystostomy drainage catheter. Liver appears relatively unremarkable. No obvious gross dilatation of the biliary tree evident on this noninfused study. 2. Gallbladder appears unremarkable, realizing limitations of CT scan versus ultrasound in assessing the gallbladder. 3. Left-sided ureteral stent. No hydronephrosis. Sternotomy wires, peripheral lung disease appears stable from 11/07/2022. No pleural effusions. RADIATION DOSE DELIVERED: 641.75mGy.cm Total DLP DATA REPOSITORY: All CT scans at this facility are submitted to the National Radiology Data Registry (NRDR) Dose Index Registry (DIR) with the [employer] (ACR). RADIATION OPTIMIZATION: All CT scans at this facility use at least one of these dose optimization te chniques: automated exposure control; mA and/or kV adjustment per patient size (includes targeted exa ms where dose is matched to clinical indication); or iterative reconstruction.
== END 2022-11-17 02:26 ==
PROVIDERS: PCP Nurse Practitioner; Visit Provider Surgery
DX: R10.11 Right upper quadrant pain (principal); I70.0 Atherosclerosis of aorta; J98.4 Other disorders of lung; C79.51 Secondary malignant neoplasm of bone; N28.1 Cyst of kidney, acquired; N28.89 Other specified disorders of kidney and ureter
CPT/HCPCS: 36415; 71250; 74150; 80076; 99212

== ENCOUNTER 2022-11-17 03:49 | Outpatient (CLI) | payer MEDICARE, SELFPAY ==
[2022-11-17 10:16] LABS: ALT 26 U/L (16-63); AST 22 U/L (15-37); Albumin 3.5 g/dL (3.4-5.0); Alkaline Phosphatase 182 U/L (46-116); Bilirubin, Direct 0.2 mg/dL (0.0-0.2); Bilirubin, Total 0.5 mg/dL (0.2-1.0); Total Protein 8.3 g/dL (6.4-8.2)
== END 2022-11-17 03:50 | disposition home or self-care (01) ==
LOC: LBO 03:50
PROVIDERS: PCP Nurse Practitioner; Visit Provider Surgery
DX: C61 Malignant neoplasm of prostate (principal); C79.51 Secondary malignant neoplasm of bone; E11.69 Type 2 diabetes mellitus with other specified complication; G89.3 Neoplasm related pain (acute) (chronic); K81.0 Acute cholecystitis; R79.89 Other specified abnormal findings of blood chemistry
CPT/HCPCS: 36415; 80076; 99212

== ENCOUNTER 2022-12-15 00:48 | Outpatient (CLI) | payer MEDICARE, SELFPAY ==
--- NOTE | 2022-12-15 | DI.MRI_ITS ---
Exam(s) MR THORACIC SPINE WO/W EXAM: MR THORACIC SPINE WO/W CLINICAL HISTORY: BONE METS C79.51 PROSTATE CANCER C61 TECHNIQUE: Multiplanar multisequence MRI of the thoracic spine was performed. Both pre and post con trast infused sequences were performed. Contrast use was IV Dotarem 12 mL COMPARISON: CT CT CHEST/ABD WO from 11/17/2022 FINDINGS: OSSEOUS: There is signal abnormality consistent with metastatic disease involving all of the thoracic vertebral bodies. This is most evident at T12 and T11. At T12 level there is pathologic compressio n fracture with significant posterior bulging of the posterior cortex and enhancing pathologic tissue into the spinal canal for distance of 9 millimeters AP and 42.4 cm wide. This significantly impress es the thecal sac at this level. Tumor does not appear to extend into the exiting neural foramina on either side at this level. At T11 level there is also pathologic compression fracture with mild wedging but no evidence of poste rior cortex retropulsion nor invasion of the spinal canal. PARASPINAL TISSUES: Right kidney cyst in the lateral cortex. Left kidney atrophic. IMPRESSION: 1. There is metastatic disease diffusely involving all of the vertebral bodies in the field of view o f this study including all the thoracic vertebral bodies as well as visualized L1 and L2 vertebral hill dies. 2. The main findings are at T11 and T12 vertebral bodies which both exhibit pathologic fractures. At the T12 level there is posterior bulging of pathologic tissue through the posterior cortex of the T1 2 body into the epidural canal with compression of the anterior thecal sac at this level. The amount of compression of the actual spinal cord at this level is mild. There is no foraminal stenosis. 3. The T11 fracture is not associated with compromise of the spinal canal at this level (as is eviden t at T12). DATA REPOSITORY:
[2022-12-15] MEDS: Normal Saline Flush 10 ML SYR IVP (13:15)
[2022-12-15] MEDS: Gadoterate meglumine 20 ML SYRINGE 12 ML IVP (13:15)
== END 2022-12-15 01:08 ==
LOC: DI 00:50
PROVIDERS: PCP Nurse Practitioner; Visit Provider Nurse Practitioner
DX: C61 Malignant neoplasm of prostate (principal)
CPT/HCPCS: 72157

== ENCOUNTER 2023-01-06 12:35 | Outpatient (CLI) | payer MEDICARE, SELFPAY ==
[2023-01-06 09:46] LABS: Abs Immature Grans 0.41 10^3/uL (0.0-0.06); Absolute Basophil Count 0.04 10^3/uL (0.0-0.2); Absolute Lymphocyte Count 1.28 10^3/uL (1.2-3.4); Absolute Monocyte Count 0.59 10^3/uL (0.1-0.8); Absolute Neutrophil Count 4.02 10^3/uL (1.2-6.7); Basophils % 0.6; HCT 33.1 % (40.0-50.0); HGB 10.3 g/dL (13.5-17.5); Immature Grans % 6.5; Lymphocytes % 20.2; MCH 25.2 pg (27.0-33.0); MCHC 31.1 % (32.0-36.0); MCV 81 fL (80-95); MPV 10.1 fL (8.0-11.0); Monocytes % 9.3; Neutrophils % 63.4; Nucleated RBC 0.5 % (0.0-0.3); Platelet Count 101 10^3/uL (130-400); RBC 4.09 10^6/uL (4.36-5.78); RDW 15.1 % (11.8-14.1); RDW-SD 44.3 fL; WBC 6.34 10^3/uL (4.4-10.8)
[2023-01-06 10:03] LABS: ALT 24 U/L (16-63); AST 53 U/L (15-37); Albumin 2.8 g/dL (3.4-5.0); Alkaline Phosphatase 280 U/L (46-116); Anion Gap 14.2 mmol/L (3-11); BUN 24 mg/dL (7-18); Bilirubin, Total 0.7 mg/dL (0.2-1.0); CO2 24.8 mmol/L (21.0-32.0); CREATININE 1.6 mg/dL (0.70-1.30); Calcium 9.8 mg/dL (8.5-10.1); Chloride 98 mmol/L (98-107); Glucose 295 mg/dL (74-106); Potassium 3.6 mmol/L (3.5-5.1); Sodium 137 mmol/L (136-145)
[2023-01-06 10:11] LABS: Diff Comment Diff Reviewed; RBC Morphology Normal
[2023-01-07 18:30] LABS: PSA, Ultrasensitive 818 ng/mL (<= 6.5)
[2023-01-10 02:50] LABS: Testosterone, Total <7.0 ng/dL (240-950)
== END 2023-01-06 12:36 | disposition home or self-care (01) ==
PROVIDERS: PCP Nurse Practitioner; Visit Provider Internal Medicine
DX: C61 Malignant neoplasm of prostate (principal)
CPT/HCPCS: 36415; 80053; 84153; 84403; 85025

== ENCOUNTER 2023-02-03 11:32 | Outpatient (CLI) | payer MEDICARE, SELFPAY ==
[2023-02-03 09:58] LABS: Abs Immature Grans 0.37 10^3/uL (0.0-0.06); HCT 27.3 % (40.0-50.0); HGB 8.3 g/dL (13.5-17.5); MCH 26.3 pg (27.0-33.0); MCHC 30.4 % (32.0-36.0); MCV 87 fL (80-95); MPV 9.7 fL (8.0-11.0); RBC 3.15 10^6/uL (4.36-5.78); RDW 22.2 % (11.8-14.1); RDW-SD 67.7 fL; WBC 4.38 10^3/uL (4.4-10.8)
[2023-02-03 10:13] LABS: ALT 20 U/L (16-63); AST 18 U/L (15-37); Albumin 3.3 g/dL (3.4-5.0); Alkaline Phosphatase 238 U/L (46-116); BUN 17 mg/dL (7-18); Bilirubin, Total 0.8 mg/dL (0.2-1.0); CREATININE 1.1 mg/dL (0.70-1.30); Calcium 8.4 mg/dL (8.5-10.1); Chloride 103 mmol/L (98-107); Estimated GFR 71.32 (mL/min/1.73m2); Glucose 240 mg/dL (74-106); Potassium 4.4 mmol/L (3.5-5.1); Sodium 137 mmol/L (136-145); Total Protein 7.3 g/dL (6.4-8.2)
[2023-02-03 10:21] LABS: Absolute Basophil Count 0.09 10^3/uL (0.0-0.2); Absolute Monocyte Count 0.13 10^3/uL (0.1-0.8); Absolute Neutrophil Count 3.07 10^3/uL (1.2-6.7); Anisocytosis 2+; Bands % 3; Basophilic Stippling Present; Diff Comment Manual Differential; Hypochromasia 2+; Platelet Count 89 10^3/uL (130-400); Polychromasia Present
[2023-02-04 17:56] LABS: PSA, Ultrasensitive 483 ng/mL (<= 6.5)
[2023-02-08 11:44] LABS: Testosterone, Total <7.0 ng/dL (240-950)
== END 2023-02-03 11:33 | disposition home or self-care (01) ==
LOC: LBO 11:33
PROVIDERS: PCP Nurse Practitioner; Visit Provider Internal Medicine
DX: C61 Malignant neoplasm of prostate (principal)
CPT/HCPCS: 36415; 80053; 84153; 84403; 85025